=== PATIENT | female | born 1985 | race Caucasian/White ===

== ENCOUNTER 2016-09-06 17:03 | Emergency (ER) | payer MEDICAID ==
[~2016-09-06] VITALS: Ht 144.8 cm; Wt 68.2 kg
[~2016-09-06 17:03] MED LIST: FLUO-191 PO; OLAN10TA20 PO; OMEP20 PO
[2016-09-06 19:00] LABS: BASOPHILS % (AUTO) 0.5 % (0.0-2.0); EOSINOPHILS % (AUTO) 1.5 % (1.0-6.0); HEMATOCRIT 43.4 % (36-46); HEMOGLOBIN 14.5 g/dL (12.0-16.0); LYMPHOCYTES # (AUTO) 3.5 K/uL (1.0-4.8); LYMPHOCYTES % (AUTO) 39.9 % (22.0-44.0); MEAN CORPUSCULAR HEMOGLOBIN 28.2 pg (26.0-34.0); MEAN CORPUSCULAR HGB CONC 33.4 G/dL (31.0-37.0); MEAN CORPUSCULAR VOLUME 84 fL (80-100); MONOCYTES # (AUTO) 0.8 K/uL (0.1-1.0); NEUTROPHILS # (AUTO) 4.3 K/uL (1.8-7.7); NEUTROPHILS % (AUTO) 49.1 % (40.0-70.0); PLATELET COUNT (AUTO) 238 K/uL (150-450); RED BLOOD CELL COUNT(AUTO) 5.14 MIL/uL (4.00-5.20); RED CELL DISTRIBUTION WIDTH 13.3 % (11.5-14.5); WHITE BLOOD COUNT (AUTO) 8.7 K/uL (4.5-11.0)
[2016-09-06 19:02] LABS: ANION GAP 7 mmol/L (8-16); CALCIUM, TOTAL 8.7 mg/dL (8.8-10.5); CARBON DIOXIDE 28 mmol/L (22-29); CHLORIDE 105 mmol/L (98-107); CREATININE 0.83 mg/dL (0.60-1.30); GLOMERULAR FILTR. RATE CALC > 60 mL/min (>60); SODIUM SERUM 140 mmol/L (136-145); UREA NITROGEN, BLOOD 20 mg/dL (7-18)
[2016-09-06 19:09] LABS: ALANINE AMINOTRANSFERASE 34 U/L (12-78); ALBUMIN 3.9 g/dL (3.4-5.0); ASPARTATE AMINOTRANSFERASE 14 U/L (15-37); BILIRUBIN,TOTAL 0.4 mg/dL (0.1-1.0); TOTAL PROTEIN, SERUM 7.4 g/dL (6.4-8.2)
[2016-09-06 21:01] VITALS: BP 122/68
== END 2016-09-06 21:09 | disposition home or self-care (01) ==
LOC: EMS 17:05
DX: F15.10 Other stimulant abuse, uncomplicated (principal); F31.9 Bipolar disorder, unspecified; F20.9 Schizophrenia, unspecified; J45.909 Unspecified asthma, uncomplicated; Z91.040 Latex allergy status; Z88.1 Allergy status to other antibiotic agents; Z88.5 Allergy status to narcotic agent
CPT/HCPCS: 36415; 80053; 85025; 99285; G0480

== ENCOUNTER 2016-10-20 23:49 | Inpatient (IN) | payer MEDICAID ==
[~2016-10-20] VITALS: Ht 144.8 cm; Wt 58.7 kg
[2016-10-21 02:06] VITALS: BP 116/60
[2016-10-21 04:09] LABS: BASOPHILS # (AUTO) 0.12 K/uL (0.00-0.20); BASOPHILS % (AUTO) 1.2 % (0.0-2.0); EOSINOPHILS # (AUTO) 0.09 K/uL (0.00-0.70); HEMATOCRIT 42.8 % (36-46); HEMOGLOBIN 14.1 g/dL (12.0-16.0); LYMPHOCYTES % (AUTO) 29.6 % (22.0-44.0); MEAN CORPUSCULAR HEMOGLOBIN 28.3 pg (26.0-34.0); MEAN CORPUSCULAR HGB CONC 33.1 G/dL (31.0-37.0); MEAN CORPUSCULAR VOLUME 85 fL (80-100); MONOCYTES # (AUTO) 0.6 K/uL (0.1-1.0); MONOCYTES % (AUTO) 6.3 % (2.0-9.0); NEUTROPHILS # (AUTO) 6.3 K/uL (1.8-7.7); PLATELET COUNT (AUTO) 289 K/uL (150-450); RED BLOOD CELL COUNT(AUTO) 5.01 MIL/uL (4.00-5.20); RED CELL DISTRIBUTION WIDTH 14.1 % (11.5-14.5); WHITE BLOOD COUNT (AUTO) 10.1 K/uL (4.5-11.0)
[2016-10-21 04:19] LABS: ANION GAP 10 mmol/L (8-16); CALCIUM, TOTAL 9.2 mg/dL (8.8-10.5); CARBON DIOXIDE 28 mmol/L (22-29); CHLORIDE 103 mmol/L (98-107); CREATININE 0.87 mg/dL (0.60-1.30); GLOMERULAR FILTR. RATE CALC > 60 mL/min (>60); POTASSIUM 3.4 mmol/L (3.5-5.1); SODIUM SERUM 141 mmol/L (136-145); UREA NITROGEN, BLOOD 21 mg/dL (7-18)
[2016-10-21 04:26] LABS: ALANINE AMINOTRANSFERASE 24 U/L (12-78); ALBUMIN 3.9 g/dL (3.4-5.0); ASPARTATE AMINOTRANSFERASE 11 U/L (15-37); BILIRUBIN,TOTAL 0.3 mg/dL (0.1-1.0); TOTAL PROTEIN, SERUM 7.5 g/dL (6.4-8.2)
[2016-10-21] MEDS ORDERED: HALOPERIDOL 5 MG TABLET PO PRN (06:15)
[2016-10-21] MEDS ORDERED: ZOLPIDEM TARTRATE 10 MG TABLET PO PRN (06:15)
[2016-10-21] MEDS ORDERED: LORazepam 2 MG TABLET PO PRN (06:15)
[2016-10-21 07:36] LABS: CHOL/HDL RATIO 4.5 (3.9-5.7)
[2016-10-21 07:47] LABS: APPEARANCE,URINE CLOUDY (CLEAR); GLUCOSE, URINE (UA) NEGATIVE (NEGATIVE); KETONES,URINE NEGATIVE (NEGATIVE); LEUKOCYTE ESTERASE ,URINE MODERATE (NEGATIVE); OCCULT BLOOD,URINE LARGE (NEGATIVE); PH,URINE 6.5 (5.0-8.0); PROTEIN,URINE TRACE (NEGATIVE)
[2016-10-21 07:49] LABS: ADD UA MICROSCOPIC YES
[2016-10-21 07:53] LABS: SQUAMOUS EPITHELIAL CELL,UR Moderate /LPF (None Seen)
[2016-10-21 10:22] VITALS: BP 111/65
[2016-10-21] MEDS ORDERED: IBUPROFEN 400 MG TABLET PO PRN (15:00)
[2016-10-21] MEDS ORDERED: ACETAMINOPHEN 325 MG TABLET PO PRN (15:00)
[2016-10-21] MEDS ORDERED: ALBUTEROL SULFATE HFA 90 MCG/PUFF 8 GM INHALER IH PRN (15:00)
[2016-10-21 17:48] VITALS: BP 126/69
[2016-10-21] MEDS ORDERED: HydrOXYzine PAMOATE 25 MG CAPSULE PO PRN (18:30)
[2016-10-21] MEDS: OLANZapine 10 MG TABLET PO SCH (20:37)
[2016-10-22] MEDS: FLUoxetine HCL 20 MG CAPSULE PO SCH (09:00)
[2016-10-22] MEDS: CIPROFLOXACIN HCL 500 MG TABLET PO SCH ×2 (09:00→16:16)
[2016-10-22] MEDS: OLANZapine 10 MG TABLET PO SCH (20:31)
[2016-10-22 20:55] VITALS: BP 108/66
[2016-10-23 08:00] VITALS: BP 121/72
[2016-10-23] MEDS: CIPROFLOXACIN HCL 500 MG TABLET PO SCH ×2 (09:19→15:51)
[2016-10-23] MEDS: FLUoxetine HCL 20 MG CAPSULE PO SCH (09:19)
[2016-10-23 17:18] VITALS: BP 115/77
[2016-10-23] MEDS ORDERED: DiphenhydrAMINE HCL 50 MG/ML VIAL ONE (18:44)
[2016-10-23] MEDS ORDERED: DiphenhydrAMINE HCL 50 MG/ML VIAL IM ONE (18:45)
[2016-10-23] MEDS: OLANZapine 10 MG TABLET PO SCH (20:12)
[2016-10-23] MEDS ORDERED: BENZTROPINE MESYLATE 1 MG TABLET PO SCH (21:00)
[2016-10-24 02:15] VITALS: BP 117/83
[2016-10-24 08:16] VITALS: BP 104/71
[2016-10-24] MEDS: FLUoxetine HCL 20 MG CAPSULE PO SCH (09:00)
[2016-10-24] MEDS: CIPROFLOXACIN HCL 500 MG TABLET PO SCH ×2 (09:29→16:43)
[2016-10-24 19:06] VITALS: BP 110/73
[2016-10-24] MEDS: OLANZapine 10 MG TABLET PO SCH (20:44)
[2016-10-24] MEDS: BENZTROPINE MESYLATE 1 MG TABLET PO SCH (20:44)
[2016-10-25] MEDS: CIPROFLOXACIN HCL 500 MG TABLET PO SCH ×2 (11:22→16:42)
[2016-10-25] MEDS: BENZTROPINE MESYLATE 1 MG TABLET PO SCH (11:23)
[2016-10-25] MEDS: FLUoxetine HCL 20 MG CAPSULE PO SCH (11:23)
[2016-10-25] MEDS ORDERED: BENZ1TAB10 PO (12:02)
[2016-10-25] MEDS ORDERED: FLUO-191 PO (12:02)
[2016-10-25] MEDS ORDERED: CIPR-278 PO (12:03)
[2016-10-25] MEDS ORDERED: OLAN10TA3 PO (12:04)
== END 2016-10-25 18:45 | disposition home or self-care (01) | DRG 750 ==
LOC: EMS 10-21 03:37 → 3EI 10-21 06:00
PROVIDERS: ADMIT Psychiatry & Neurology Psychiatry; ATTEND Psychiatry & Neurology Psychiatry
PROC: HZ47ZZZ Group Counseling for Substance Abuse Treatment, Motivational Enhancement (ICD-10-PCS; principal; 2016-10-22)
DX: F25.0 Schizoaffective disorder, bipolar type (principal); R45.851 Suicidal ideations; F15.20 Other stimulant dependence, uncomplicated; N39.0 Urinary tract infection, site not specified; J45.909 Unspecified asthma, uncomplicated; G56.00 Carpal tunnel syndrome, unspecified upper limb; K21.9 Gastro-esophageal reflux disease without esophagitis; E78.5 Hyperlipidemia, unspecified; H91.92 Unspecified hearing loss, left ear; R45.87 Impulsiveness; F60.3 Borderline personality disorder; Z81.8 Family history of other mental and behavioral disorders; Z88.6 Allergy status to analgesic agent; Z91.040 Latex allergy status; Z79.899 Other long term (current) drug therapy; Z91.5 Personal history of self-harm; Z88.2 Allergy status to sulfonamides; Z91.14 Patient's other noncompliance with medication regimen
CPT/HCPCS: 87086; 99285; G0480; J1200

== ENCOUNTER 2016-11-13 21:20 | Inpatient (IN) | payer MEDICAID ==
[~2016-11-13] VITALS: Ht 144.8 cm; Wt 60.0 kg
[~2016-11-13 21:20] MED LIST changes: +BENZ1TAB10 PO; +CIPR-278 PO; -OLAN10TA20 PO; +OLAN10TA3 PO; -OMEP20 PO
[2016-11-13 22:00] LABS: BASOPHILS % (AUTO) 0.8 % (0.0-2.0); EOSINOPHILS % (AUTO) 1.3 % (1.0-6.0); HEMATOCRIT 43.4 % (36-46); LYMPHOCYTES # (AUTO) 3.7 K/uL (1.0-4.8); LYMPHOCYTES % (AUTO) 43.6 % (22.0-44.0); MEAN CORPUSCULAR HEMOGLOBIN 27.7 pg (26.0-34.0); MEAN CORPUSCULAR HGB CONC 32.2 G/dL (31.0-37.0); MEAN CORPUSCULAR VOLUME 86 fL (80-100); MONOCYTES # (AUTO) 0.6 K/uL (0.1-1.0); NEUTROPHILS % (AUTO) 47.3 % (40.0-70.0); PLATELET COUNT (AUTO) 263 K/uL (150-450); RED BLOOD CELL COUNT(AUTO) 5.05 MIL/uL (4.00-5.20); RED CELL DISTRIBUTION WIDTH 14.8 % (11.5-14.5); WHITE BLOOD COUNT (AUTO) 8.4 K/uL (4.5-11.0)
[2016-11-13] MEDS ORDERED: LORazepam 2 MG TABLET PO ONE (22:00)
[2016-11-13] MEDS ORDERED: HALOPERIDOL 5 MG TABLET PO ONE (22:00)
[2016-11-13 22:14] LABS: ANION GAP 10 mmol/L (8-16); CALCIUM, TOTAL 8.6 mg/dL (8.8-10.5); CARBON DIOXIDE 26 mmol/L (22-29); CHLORIDE 102 mmol/L (98-107); CREATININE 0.87 mg/dL (0.60-1.30); GLOMERULAR FILTR. RATE CALC > 60 mL/min (>60); POTASSIUM 3.6 mmol/L (3.5-5.1); SODIUM SERUM 138 mmol/L (136-145); UREA NITROGEN, BLOOD 13 mg/dL (7-18)
[2016-11-13 22:20] LABS: ALANINE AMINOTRANSFERASE 27 U/L (12-78); ALBUMIN 4.2 g/dL (3.4-5.0); ASPARTATE AMINOTRANSFERASE 12 U/L (15-37); BILIRUBIN,TOTAL 0.3 mg/dL (0.1-1.0); TOTAL PROTEIN, SERUM 7.7 g/dL (6.4-8.2)
[2016-11-13] MEDS ORDERED: QUEtiapine FUMARATE 100 MG TABLET PO PRN (22:30)
[2016-11-14 01:32] LABS: APPEARANCE,URINE CLOUDY (CLEAR); GLUCOSE, URINE (UA) 100 mg/dL (NEGATIVE); KETONES,URINE NEGATIVE (NEGATIVE); LEUKOCYTE ESTERASE ,URINE SMALL (NEGATIVE); OCCULT BLOOD,URINE NEGATIVE (NEGATIVE); PH,URINE 5.5 (5.0-8.0); PROTEIN,URINE NEGATIVE (NEGATIVE)
[2016-11-14 01:33] LABS: ADD UA MICROSCOPIC YES
[2016-11-14 01:39] LABS: CALCIUM OXALATE CRYSTALS,UR Moderate /LPF (None Seen); RBC,URINE 0-2 /HPF (0-2); SQUAMOUS EPITHELIAL CELL,UR Few /LPF (None Seen)
[2016-11-14 02:52] VITALS: BP 108/58
[2016-11-14 07:15] LABS: CHOL/HDL RATIO 3.8 (3.9-5.7)
[2016-11-14 08:16] VITALS: BP 107/58
[2016-11-14] MEDS: BENZTROPINE MESYLATE 1 MG TABLET PO SCH ×2 (09:04→21:19)
[2016-11-14] MEDS: FLUoxetine HCL 20 MG CAPSULE PO SCH (09:04)
[2016-11-14 17:01] VITALS: BP 105/71
[2016-11-14] MEDS ORDERED: OLANZapine 10 MG TABLET PO SCH (21:00)
[2016-11-14] MEDS: ZOLPIDEM TARTRATE 5 MG TABLET PO PRN (22:02)
[2016-11-15 09:00] VITALS: BP 108/61
[2016-11-15] MEDS: FLUoxetine HCL 20 MG CAPSULE PO SCH (09:22)
[2016-11-15] MEDS: BENZTROPINE MESYLATE 1 MG TABLET PO SCH ×2 (09:22→20:44)
[2016-11-15 16:54] VITALS: BP 117/58
[2016-11-15] MEDS: ACETAMINOPHEN 325 MG TABLET PO PRN (16:56)
[2016-11-15 17:54] VITALS: BP 120/62
[2016-11-15] MEDS ORDERED: GuaiFENesin/D-METHORPHAN [SUGAR-FREE] 200-20MG/10 ML SYRUP UDCUP PO PRN (18:00)
[2016-11-15] MEDS ORDERED: PROMETHAZINE HCL 25 MG TABLET PO PRN (18:00)
[2016-11-15] MEDS ORDERED: OLANZapine 5 MG RAPDIS TABLET PO PRN (18:00)
[2016-11-15] MEDS ORDERED: LOPERAMIDE HCL 2 MG CAPSULE PO PRN (18:00)
[2016-11-15] MEDS ORDERED: MAG HYDROX/AL HYDROX/SIMETH ES 30 ML SUSPENSION UDCUP PO PRN (18:00)
[2016-11-15] MEDS ORDERED: HydrOXYzine PAMOATE 50 MG CAPSULE PO PRN (18:00)
[2016-11-15] MEDS ORDERED: ACETAMINOPHEN 325 MG TABLET PO PRN (18:00)
[2016-11-15] MEDS ORDERED: MAGNESIUM HYDROXIDE SUSPENSION 30 ML UDCUP PO PRN (18:00)
[2016-11-15] MEDS ORDERED: OLANZapine 7.5 MG TABLET PO SCH (21:00)
[2016-11-15] MEDS: ZOLPIDEM TARTRATE 5 MG TABLET PO PRN (21:25)
[2016-11-16 01:15] VITALS: BP 105/63
[2016-11-16] MEDS: ACETAMINOPHEN 325 MG TABLET PO PRN (01:15)
[2016-11-16 09:00] VITALS: BP 100/54
[2016-11-16] MEDS: MULTIVITAMINS WITH MINERALS, THERAPEUTIC TABLET PO SCH (09:35)
[2016-11-16] MEDS: THIAMINE HCL 100 MG TABLET PO SCH ×2 (09:35→16:16)
[2016-11-16] MEDS: FLUoxetine HCL 20 MG CAPSULE PO SCH (09:35)
[2016-11-16] MEDS: BENZTROPINE MESYLATE 1 MG TABLET PO SCH (09:35)
[2016-11-16] MEDS: FOLIC ACID 1 MG TABLET PO SCH (09:35)
[2016-11-16 16:30] VITALS: BP 119/78
[2016-11-16] MEDS: OLANZapine 10 MG TABLET PO SCH (20:35)
[2016-11-16] MEDS: ZOLPIDEM TARTRATE 5 MG TABLET PO PRN (20:41)
[2016-11-17] MEDS: MULTIVITAMINS WITH MINERALS, THERAPEUTIC TABLET PO SCH (08:42)
[2016-11-17] MEDS: FLUoxetine HCL 20 MG CAPSULE PO SCH (08:42)
[2016-11-17] MEDS: FOLIC ACID 1 MG TABLET PO SCH (08:42)
[2016-11-17] MEDS: THIAMINE HCL 100 MG TABLET PO SCH ×2 (08:44→16:41)
[2016-11-17] MEDS: LORazepam 2 MG TABLET PO PRN (16:48)
[2016-11-17] MEDS: OLANZapine 10 MG TABLET PO SCH (21:11)
[2016-11-17 22:37] VITALS: BP 123/67
[2016-11-18] MEDS: LORazepam 2 MG TABLET PO PRN (03:55)
[2016-11-18 08:00] VITALS: BP 102/65
[2016-11-18] MEDS: THIAMINE HCL 100 MG TABLET PO SCH ×2 (09:13→16:12)
[2016-11-18] MEDS: MULTIVITAMINS WITH MINERALS, THERAPEUTIC TABLET PO SCH (09:13)
[2016-11-18] MEDS: FOLIC ACID 1 MG TABLET PO SCH (09:13)
[2016-11-18] MEDS: FLUoxetine HCL 20 MG CAPSULE PO SCH (09:13)
[2016-11-18] MEDS ORDERED: FLUO-191 PO (13:49)
[2016-11-18] MEDS ORDERED: OLAN10TA20 PO (13:49)
== END 2016-11-18 18:00 | disposition home or self-care (01) | DRG 751 ==
LOC: EMS 21:28 → 3EI 23:04
PROVIDERS: ADMIT Psychiatry & Neurology Psychiatry; ATTEND Psychiatry & Neurology Psychiatry
DX: F33.3 Major depressive disorder, recurrent, severe with psychotic symptoms (principal); Z91.14 Patient's other noncompliance with medication regimen; R45.851 Suicidal ideations; K21.9 Gastro-esophageal reflux disease without esophagitis; J45.909 Unspecified asthma, uncomplicated; E78.5 Hyperlipidemia, unspecified; G56.00 Carpal tunnel syndrome, unspecified upper limb
CPT/HCPCS: 87081; 99285; G0480

== ENCOUNTER 2016-11-21 23:55 | Emergency (ER) | payer MEDICAID ==
[~2016-11-21] VITALS: Ht 144.8 cm; Wt 60.0 kg
[~2016-11-21 23:55] MED LIST changes: -BENZ1TAB10 PO; -CIPR-278 PO; +OLAN10TA20 PO
[2016-11-22 00:02] VITALS: BP 122/85
== END 2016-11-22 01:15 | disposition left against medical advice (07) ==
LOC: EMS 23:55
DX: Z53.21 Procedure and treatment not carried out due to patient leaving prior to being seen by health care provider (principal)

== ENCOUNTER 2016-12-16 18:08 | Inpatient (IN) | payer MEDICAID ==
[~2016-12-16] VITALS: Ht 144.8 cm; Wt 60.8 kg
[~2016-12-16 18:08] MED LIST changes: -OLAN10TA3 PO
[2016-12-16 18:57] LABS: BASOPHILS % (AUTO) 0.6 % (0.0-2.0); EOSINOPHILS % (AUTO) 0.8 % (1.0-6.0); HEMATOCRIT 45.2 % (36-46); HEMOGLOBIN 15.1 g/dL (12.0-16.0); LYMPHOCYTES % (AUTO) 30.6 % (22.0-44.0); MEAN CORPUSCULAR HEMOGLOBIN 29.1 pg (26.0-34.0); MEAN CORPUSCULAR HGB CONC 33.5 G/dL (31.0-37.0); MEAN CORPUSCULAR VOLUME 87 fL (80-100); MONOCYTES # (AUTO) 0.8 K/uL (0.1-1.0); MONOCYTES % (AUTO) 7.6 % (2.0-9.0); NEUTROPHILS % (AUTO) 60.4 % (40.0-70.0); PLATELET COUNT (AUTO) 285 K/uL (150-450); RED CELL DISTRIBUTION WIDTH 14.1 % (11.5-14.5)
[2016-12-16 19:05] LABS: ANION GAP 15 mmol/L (8-16); CARBON DIOXIDE 23 mmol/L (22-29); CHLORIDE 104 mmol/L (98-107); GLOMERULAR FILTR. RATE CALC > 60 mL/min (>60); POTASSIUM 3.4 mmol/L (3.5-5.1); SODIUM SERUM 142 mmol/L (136-145); UREA NITROGEN, BLOOD 15 mg/dL (7-18)
[2016-12-16 19:14] LABS: ALANINE AMINOTRANSFERASE 25 U/L (12-78); ALBUMIN 4.7 g/dL (3.4-5.0); ASPARTATE AMINOTRANSFERASE 23 U/L (15-37); BILIRUBIN,TOTAL 0.8 mg/dL (0.1-1.0); TOTAL PROTEIN, SERUM 8.4 g/dL (6.4-8.2)
[2016-12-16] MEDS ORDERED: LORazepam 2 MG TABLET PO PRN (20:30)
[2016-12-16] MEDS ORDERED: ZOLPIDEM TARTRATE 10 MG TABLET PO PRN (20:30)
[2016-12-16] MEDS ORDERED: QUEtiapine FUMARATE 100 MG TABLET PO PRN (20:30)
[2016-12-16] MEDS ORDERED: 0.9% SODIUM CHLORIDE 10 ML SYRINGE IVP PRN (21:15)
[2016-12-16] MEDS ORDERED: ACETAMINOPHEN 325 MG TABLET PO PRN (21:15)
[2016-12-16 21:30] VITALS: BP 132/84
[2016-12-16] MEDS ORDERED: ChlorproMAZINE HCL 50 MG TABLET PO PRN (21:45)
[2016-12-16] MEDS: OLANZapine 5 MG TABLET PO SCH (22:01)
[2016-12-16] MEDS: BENZTROPINE MESYLATE 1 MG TABLET PO SCH (22:01)
[2016-12-17 07:32] LABS: CHOL/HDL RATIO 3.2 (3.9-5.7)
[2016-12-17 16:47] VITALS: BP 108/62
[2016-12-17] MEDS: OLANZapine 5 MG TABLET PO SCH (20:52)
[2016-12-17] MEDS: BENZTROPINE MESYLATE 1 MG TABLET PO SCH (20:52)
[2016-12-17] MEDS ORDERED: OLANZapine 5 MG TABLET PO SCH (21:00)
[2016-12-17] MEDS ORDERED: BENZTROPINE MESYLATE 1 MG TABLET PO SCH (21:00)
[2016-12-17] MEDS ORDERED: ACETAMINOPHEN 325 MG TABLET PO PRN (21:45)
[2016-12-17] MEDS ORDERED: IBUPROFEN 400 MG TABLET PO PRN (21:45)
[2016-12-18 09:29] VITALS: BP 126/72
[2016-12-18] MEDS: OLANZapine 10 MG TABLET PO SCH (20:42)
[2016-12-18] MEDS: BENZTROPINE MESYLATE 1 MG TABLET PO SCH (20:42)
[2016-12-19 08:00] VITALS: BP 119/73
[2016-12-19] MEDS ORDERED: GuaiFENesin/D-METHORPHAN [SUGAR-FREE] 200-20MG/10 ML SYRUP UDCUP PO PRN (14:30)
[2016-12-19] MEDS ORDERED: OLANZapine 5 MG RAPDIS TABLET PO PRN (14:30)
[2016-12-19] MEDS ORDERED: HydrOXYzine PAMOATE 50 MG CAPSULE PO PRN (14:30)
[2016-12-19] MEDS ORDERED: MAG HYDROX/AL HYDROX/SIMETH ES 30 ML SUSPENSION UDCUP PO PRN (14:30)
[2016-12-19] MEDS ORDERED: PROMETHAZINE HCL 25 MG TABLET PO PRN (14:30)
[2016-12-19] MEDS ORDERED: LOPERAMIDE HCL 2 MG CAPSULE PO PRN (14:30)
[2016-12-19] MEDS ORDERED: MAGNESIUM HYDROXIDE SUSPENSION 30 ML UDCUP PO PRN (14:30)
[2016-12-19] MEDS ORDERED: ACETAMINOPHEN 325 MG TABLET PO PRN (14:30)
[2016-12-19] MEDS: THIAMINE HCL 100 MG TABLET PO SCH (16:15)
[2016-12-19] MEDS ORDERED: BENZ1TAB10 PO (17:05)
[2016-12-19] MEDS ORDERED: NALT50 PO (17:05)
[2016-12-19] MEDS ORDERED: OLAN10TA20 PO (17:05)
[2016-12-19] MEDS ORDERED: DiphenhydrAMINE HCL 50 MG/ML VIAL ONE (17:52)
[2016-12-19] MEDS ORDERED: BENZTROPINE MESYLATE 2 MG TABLET PO ONE (18:00)
[2016-12-19] MEDS ORDERED: DiphenhydrAMINE HCL 50 MG/ML VIAL IM ONE (18:00)
[2016-12-19 19:00] VITALS: BP 118/75
[2016-12-19] MEDS: OLANZapine 10 MG TABLET PO SCH (20:21)
[2016-12-19] MEDS: BENZTROPINE MESYLATE 1 MG TABLET PO SCH (20:21)
[2016-12-20 08:44] VITALS: BP 100/60
[2016-12-20] MEDS: THIAMINE HCL 100 MG TABLET PO SCH (08:53)
[2016-12-20] MEDS ORDERED: BENZTROPINE MESYLATE 2 MG TABLET PO SCH (09:00)
[2016-12-20] MEDS ORDERED: FOLIC ACID 1 MG TABLET PO SCH (09:00)
[2016-12-20] MEDS ORDERED: MULTIVITAMINS WITH MINERALS, THERAPEUTIC TABLET PO SCH (09:00)
[2016-12-20] MEDS ORDERED: NALTREXONE HCL 50 MG TABLET PO SCH (09:00)
[2016-12-20] MEDS ORDERED: BENZ2TAB10 PO (13:07)
== END 2016-12-20 14:00 | disposition home or self-care (01) | DRG 753 ==
LOC: EMS 18:10 → 3EI 20:00
PROVIDERS: ADMIT Psychiatry & Neurology Psychiatry; ATTEND Psychiatry & Neurology Psychiatry
DX: F31.9 Bipolar disorder, unspecified (principal); R45.851 Suicidal ideations; Z91.19 Patient's noncompliance with other medical treatment and regimen; F15.10 Other stimulant abuse, uncomplicated; F25.9 Schizoaffective disorder, unspecified; G56.00 Carpal tunnel syndrome, unspecified upper limb; E87.6 Hypokalemia; E78.5 Hyperlipidemia, unspecified; H91.92 Unspecified hearing loss, left ear; M54.30 Sciatica, unspecified side; J45.909 Unspecified asthma, uncomplicated; K21.9 Gastro-esophageal reflux disease without esophagitis; Z88.2 Allergy status to sulfonamides; Z88.6 Allergy status to analgesic agent; Z91.040 Latex allergy status; Z79.899 Other long term (current) drug therapy
CPT/HCPCS: 84443; 87081; 99285; G0480; J1200

== ENCOUNTER 2017-02-02 20:09 | Emergency (ER) | payer MEDICAID ==
[~2017-02-02] VITALS: Ht 144.8 cm; Wt 62.5 kg
[~2017-02-02 20:09] MED LIST changes: +BENZ0.5T6 PO; +BENZ2TAB10 PO; +HALO10 PO; +HALO50VI4 IM; +NALT50 PO; -OLAN10TA20 PO; +PALI6 PO
[2017-02-02] MEDS ORDERED: DiphenhydrAMINE HCL 25 MG CAPSULE PO ONE (21:15)
[2017-02-02] MEDS ORDERED: BENZTROPINE MESYLATE 2 MG TABLET PO ONE (21:15)
[2017-02-02 21:16] LABS: APPEARANCE,URINE CLOUDY (CLEAR); GLUCOSE, URINE (UA) NEGATIVE (NEGATIVE); KETONES,URINE NEGATIVE (NEGATIVE); LEUKOCYTE ESTERASE ,URINE LARGE (NEGATIVE); OCCULT BLOOD,URINE NEGATIVE (NEGATIVE); PROTEIN,URINE NEGATIVE (NEGATIVE)
[2017-02-02 21:26] LABS: BASOPHILS # (AUTO) 0.07 K/uL (0.00-0.20); EOSINOPHILS # (AUTO) 0.09 K/uL (0.00-0.70); EOSINOPHILS % (AUTO) 1.24 % (1.0-6.0); HEMATOCRIT 40.6 % (36-46); HEMOGLOBIN 13.4 g/dL (12.0-16.0); LYMPHOCYTES # (AUTO) 3.1 K/uL (1.0-4.8); LYMPHOCYTES % (AUTO) 40.9 % (22.0-44.0); MEAN CORPUSCULAR HEMOGLOBIN 28.3 pg (26.0-34.0); MEAN CORPUSCULAR HGB CONC 33.1 G/dL (31.0-37.0); MEAN CORPUSCULAR VOLUME 86 fL (80-100); MONOCYTES # (AUTO) 0.6 K/uL (0.1-1.0); MONOCYTES % (AUTO) 7.4 % (2.0-9.0); NEUTROPHILS # (AUTO) 3.8 K/uL (1.8-7.7); NEUTROPHILS % (AUTO) 49.5 % (40.0-70.0); PLATELET COUNT (AUTO) 214 K/uL (150-450); RED BLOOD CELL COUNT(AUTO) 4.74 MIL/uL (4.00-5.20); RED CELL DISTRIBUTION WIDTH 13.5 % (11.5-14.5); WHITE BLOOD COUNT (AUTO) 7.7 K/uL (4.5-11.0)
[2017-02-02 21:34] LABS: ANION GAP 9 mmol/L (8-16); CALCIUM, TOTAL 9.3 mg/dL (8.8-10.5); CARBON DIOXIDE 25 mmol/L (22-29); CHLORIDE 105 mmol/L (98-107); CREATININE 1.04 mg/dL (0.60-1.30); GLOMERULAR FILTR. RATE CALC > 60 mL/min (>60); SODIUM SERUM 139 mmol/L (136-145); UREA NITROGEN, BLOOD 14 mg/dL (7-18)
[2017-02-02 21:35] LABS: RBC,URINE None Seen /HPF (0-2); SQUAMOUS EPITHELIAL CELL,UR Moderate /LPF (None Seen)
[2017-02-02 21:42] LABS: ALANINE AMINOTRANSFERASE 28 U/L (12-78); ALBUMIN 3.8 g/dL (3.4-5.0); ASPARTATE AMINOTRANSFERASE 10 U/L (15-37); BILIRUBIN,TOTAL 0.4 mg/dL (0.1-1.0); TOTAL PROTEIN, SERUM 7.1 g/dL (6.4-8.2)
[2017-02-02] MEDS ORDERED: CEPHALEXIN MONOHYDRATE 500 MG CAPSULE PO ONE (22:45)
[2017-02-02 22:50] VITALS: BP 96/59
== END 2017-02-02 23:02 | disposition home or self-care (01) ==
LOC: EMS 20:10
DX: G25.9 Extrapyramidal and movement disorder, unspecified (principal); F20.9 Schizophrenia, unspecified; F32.9 Major depressive disorder, single episode, unspecified; J45.909 Unspecified asthma, uncomplicated; R82.99 Other abnormal findings in urine; G25.3 Myoclonus; M54.30 Sciatica, unspecified side; Z91.040 Latex allergy status; Z88.2 Allergy status to sulfonamides; Z88.6 Allergy status to analgesic agent
CPT/HCPCS: 87086; 99284

== ENCOUNTER 2017-02-03 03:36 | Inpatient (IN) | payer MEDICAID ==
[~2017-02-03] VITALS: Ht 144.8 cm; Wt 60.3 kg
[~2017-02-03 03:36] MED LIST changes: -BENZ2TAB10 PO; -PALI6 PO
[2017-02-03] MEDS ORDERED: ZOLPIDEM TARTRATE 10 MG TABLET PO PRN (05:15)
[2017-02-03] MEDS ORDERED: HALOPERIDOL 5 MG TABLET PO PRN (05:15)
[2017-02-03] MEDS ORDERED: MAGNESIUM HYDROXIDE SUSPENSION 30 ML UDCUP PO PRN (12:00)
[2017-02-03] MEDS ORDERED: HydrOXYzine PAMOATE 50 MG CAPSULE PO PRN (12:00)
[2017-02-03] MEDS ORDERED: PROMETHAZINE HCL 25 MG TABLET PO PRN (12:00)
[2017-02-03] MEDS ORDERED: LOPERAMIDE HCL 2 MG CAPSULE PO PRN (12:00)
[2017-02-03] MEDS ORDERED: ACETAMINOPHEN 325 MG TABLET PO PRN (12:00)
[2017-02-03] MEDS: BENZTROPINE MESYLATE 2 MG TABLET PO SCH ×2 (12:59→16:39)
[2017-02-03] MEDS: THIAMINE HCL 100 MG TABLET PO SCH (16:39)
[2017-02-03 16:42] VITALS: BP 114/68
[2017-02-03] MEDS: HALOPERIDOL 10 MG TABLET PO SCH (21:27)
[2017-02-04 06:42] VITALS: BP 106/60
[2017-02-04 09:41] VITALS: BP 104/61
[2017-02-04] MEDS: FOLIC ACID 1 MG TABLET PO SCH (09:41)
[2017-02-04] MEDS: THIAMINE HCL 100 MG TABLET PO SCH ×2 (09:41→16:09)
[2017-02-04] MEDS: FLUoxetine HCL 20 MG CAPSULE PO SCH (09:41)
[2017-02-04] MEDS: MULTIVITAMINS WITH MINERALS, THERAPEUTIC TABLET PO SCH (09:41)
[2017-02-04] MEDS: NALTREXONE HCL 50 MG TABLET PO SCH (09:41)
[2017-02-04] MEDS: BENZTROPINE MESYLATE 2 MG TABLET PO SCH ×3 (09:41→16:09)
[2017-02-04] MEDS: MAG HYDROX/AL HYDROX/SIMETH ES 30 ML SUSPENSION UDCUP PO PRN (12:58)
[2017-02-04 16:00] VITALS: BP 100/61
[2017-02-04] MEDS: HALOPERIDOL 10 MG TABLET PO SCH (20:18)
[2017-02-05] VITALS: BP 100/62
[2017-02-05 08:00] LABS: BASOPHILS # (AUTO) 0.02 K/uL (0.00-0.20); BASOPHILS % (AUTO) 0.3 % (0.0-2.0); EOSINOPHILS # (AUTO) 0.11 K/uL (0.00-0.70); EOSINOPHILS % (AUTO) 1.44 % (1.0-6.0); HEMATOCRIT 40.1 % (36-46); HEMOGLOBIN 13.5 g/dL (12.0-16.0); LYMPHOCYTES # (AUTO) 3.4 K/uL (1.0-4.8); LYMPHOCYTES % (AUTO) 45.3 % (22.0-44.0); MEAN CORPUSCULAR HEMOGLOBIN 28.9 pg (26.0-34.0); MEAN CORPUSCULAR HGB CONC 33.6 G/dL (31.0-37.0); MEAN CORPUSCULAR VOLUME 86 fL (80-100); MONOCYTES # (AUTO) 0.6 K/uL (0.1-1.0); MONOCYTES % (AUTO) 8.3 % (2.0-9.0); NEUTROPHILS # (AUTO) 3.3 K/uL (1.8-7.7); NEUTROPHILS % (AUTO) 44.6 % (40.0-70.0); PLATELET COUNT (AUTO) 202 K/uL (150-450); RED BLOOD CELL COUNT(AUTO) 4.65 MIL/uL (4.00-5.20); RED CELL DISTRIBUTION WIDTH 13.6 % (11.5-14.5); WHITE BLOOD COUNT (AUTO) 7.5 K/uL (4.5-11.0)
[2017-02-05 08:24] LABS: HEMOGLOBIN A1C 5.4 % (4.5-6.2)
[2017-02-05 08:29] LABS: ALANINE AMINOTRANSFERASE 22 U/L (12-78); ALBUMIN 3.6 g/dL (3.4-5.0); ANION GAP 11 mmol/L (8-16); ASPARTATE AMINOTRANSFERASE 9 U/L (15-37); BILIRUBIN,TOTAL 0.3 mg/dL (0.1-1.0); CALCIUM, TOTAL 9.1 mg/dL (8.8-10.5); CARBON DIOXIDE 25 mmol/L (22-29); CHLORIDE 106 mmol/L (98-107); CHOL/HDL RATIO 5.6 (3.9-5.7); CREATININE 1.06 mg/dL (0.60-1.30); GLOMERULAR FILTR. RATE CALC > 60 mL/min (>60); POTASSIUM 3.4 mmol/L (3.5-5.1); SODIUM SERUM 142 mmol/L (136-145); THYROID STIMULATING HORMONE 1.32 uIU/mL (0.36-3.74); TOTAL PROTEIN, SERUM 6.8 g/dL (6.4-8.2); UREA NITROGEN, BLOOD 15 mg/dL (7-18)
[2017-02-05] MEDS: NALTREXONE HCL 50 MG TABLET PO SCH (09:25)
[2017-02-05] MEDS: THIAMINE HCL 100 MG TABLET PO SCH ×2 (09:25→16:31)
[2017-02-05] MEDS: MULTIVITAMINS WITH MINERALS, THERAPEUTIC TABLET PO SCH (09:25)
[2017-02-05] MEDS: FOLIC ACID 1 MG TABLET PO SCH (09:25)
[2017-02-05] MEDS: FLUoxetine HCL 20 MG CAPSULE PO SCH (09:25)
[2017-02-05] MEDS: BENZTROPINE MESYLATE 2 MG TABLET PO SCH ×3 (09:25→16:31)
[2017-02-05 10:17] VITALS: BP 98/64
[2017-02-05 16:15] VITALS: BP 116/63
[2017-02-05] MEDS ORDERED: POTASSIUM CHLORIDE 20 MEQ ER TABLET PO ONE (17:30)
[2017-02-05] MEDS: HALOPERIDOL 5 MG TABLET PO SCH (20:39)
[2017-02-06 02:09] VITALS: BP 110/61
[2017-02-06 08:26] VITALS: BP 104/60
[2017-02-06] MEDS: THIAMINE HCL 100 MG TABLET PO SCH ×2 (08:42→16:19)
[2017-02-06] MEDS: NALTREXONE HCL 50 MG TABLET PO SCH (08:42)
[2017-02-06] MEDS: FOLIC ACID 1 MG TABLET PO SCH (08:42)
[2017-02-06] MEDS: MULTIVITAMINS WITH MINERALS, THERAPEUTIC TABLET PO SCH (08:42)
[2017-02-06] MEDS: FLUoxetine HCL 20 MG CAPSULE PO SCH (08:42)
[2017-02-06] MEDS: BENZTROPINE MESYLATE 1 MG TABLET PO SCH ×2 (08:42→16:19)
[2017-02-06 16:17] VITALS: BP 108/62
[2017-02-06] MEDS: HALOPERIDOL 5 MG TABLET PO SCH (21:18)
[2017-02-07 08:15] VITALS: BP 110/66
[2017-02-07] MEDS: FLUoxetine HCL 20 MG CAPSULE PO SCH (08:30)
[2017-02-07] MEDS: FOLIC ACID 1 MG TABLET PO SCH (08:31)
[2017-02-07] MEDS: NALTREXONE HCL 50 MG TABLET PO SCH (08:31)
[2017-02-07] MEDS: BENZTROPINE MESYLATE 1 MG TABLET PO SCH ×2 (08:31→16:05)
[2017-02-07] MEDS: THIAMINE HCL 100 MG TABLET PO SCH ×2 (08:31→16:05)
[2017-02-07] MEDS: MULTIVITAMINS WITH MINERALS, THERAPEUTIC TABLET PO SCH (08:31)
[2017-02-07 16:18] VITALS: BP 100/62
[2017-02-07] MEDS: GuaiFENesin/D-METHORPHAN [SUGAR-FREE] 200-20MG/10 ML SYRUP UDCUP PO PRN (17:46)
[2017-02-07] MEDS: HALOPERIDOL 5 MG TABLET PO SCH (20:23)
[2017-02-08 06:10] VITALS: BP 114/63
[2017-02-08 08:50] VITALS: BP 100/58
[2017-02-08] MEDS: MULTIVITAMINS WITH MINERALS, THERAPEUTIC TABLET PO SCH (08:54)
[2017-02-08] MEDS: BENZTROPINE MESYLATE 1 MG TABLET PO SCH ×2 (08:54→16:07)
[2017-02-08] MEDS: FLUoxetine HCL 20 MG CAPSULE PO SCH (08:54)
[2017-02-08] MEDS: NALTREXONE HCL 50 MG TABLET PO SCH (08:54)
[2017-02-08] MEDS: FOLIC ACID 1 MG TABLET PO SCH (08:54)
[2017-02-08] MEDS: THIAMINE HCL 100 MG TABLET PO SCH ×2 (08:55→16:07)
[2017-02-08 16:13] VITALS: BP 128/62
[2017-02-08] MEDS: HALOPERIDOL 5 MG TABLET PO SCH (20:07)
[2017-02-08] MEDS: LORazepam 2 MG TABLET PO PRN (21:15)
[2017-02-09 04:13] VITALS: BP 127/64
[2017-02-09] MEDS: FLUoxetine HCL 20 MG CAPSULE PO SCH (08:30)
[2017-02-09] MEDS: MULTIVITAMINS WITH MINERALS, THERAPEUTIC TABLET PO SCH (08:30)
[2017-02-09] MEDS: BENZTROPINE MESYLATE 1 MG TABLET PO SCH ×2 (08:30→16:21)
[2017-02-09] MEDS: THIAMINE HCL 100 MG TABLET PO SCH ×2 (08:30→16:21)
[2017-02-09] MEDS: NALTREXONE HCL 50 MG TABLET PO SCH (08:30)
[2017-02-09] MEDS: FOLIC ACID 1 MG TABLET PO SCH (08:30)
[2017-02-09 09:12] VITALS: BP 106/59
[2017-02-09 16:36] VITALS: BP 100/62
[2017-02-09] MEDS: LORazepam 2 MG TABLET PO PRN (18:34)
[2017-02-09] MEDS: HALOPERIDOL 5 MG TABLET PO SCH (20:44)
[2017-02-10] MEDS: BENZTROPINE MESYLATE 1 MG TABLET PO SCH ×2 (08:40→16:22)
[2017-02-10] MEDS: MULTIVITAMINS WITH MINERALS, THERAPEUTIC TABLET PO SCH (08:40)
[2017-02-10] MEDS: FLUoxetine HCL 20 MG CAPSULE PO SCH (08:40)
[2017-02-10] MEDS: NALTREXONE HCL 50 MG TABLET PO SCH (08:40)
[2017-02-10] MEDS: THIAMINE HCL 100 MG TABLET PO SCH ×2 (08:40→16:22)
[2017-02-10] MEDS: FOLIC ACID 1 MG TABLET PO SCH (08:40)
[2017-02-10 09:01] VITALS: BP 102/56
[2017-02-10 16:16] VITALS: BP 109/69
[2017-02-10] MEDS: HALOPERIDOL 5 MG TABLET PO SCH (20:13)
[2017-02-11 04:32] VITALS: BP 112/63
[2017-02-11] MEDS: FOLIC ACID 1 MG TABLET PO SCH (08:11)
[2017-02-11] MEDS: FLUoxetine HCL 20 MG CAPSULE PO SCH (08:11)
[2017-02-11] MEDS: BENZTROPINE MESYLATE 1 MG TABLET PO SCH ×2 (08:11→16:26)
[2017-02-11] MEDS: THIAMINE HCL 100 MG TABLET PO SCH ×2 (08:11→16:26)
[2017-02-11] MEDS: NALTREXONE HCL 50 MG TABLET PO SCH (08:11)
[2017-02-11] MEDS: MULTIVITAMINS WITH MINERALS, THERAPEUTIC TABLET PO SCH (08:11)
[2017-02-11 08:42] VITALS: BP 106/64
[2017-02-11] MEDS: GuaiFENesin/D-METHORPHAN [SUGAR-FREE] 200-20MG/10 ML SYRUP UDCUP PO PRN (12:14)
[2017-02-11] MEDS: MAG HYDROX/AL HYDROX/SIMETH ES 30 ML SUSPENSION UDCUP PO PRN (14:36)
[2017-02-11 16:00] VITALS: BP 108/63
[2017-02-11] MEDS: HALOPERIDOL 5 MG TABLET PO SCH (21:08)
[2017-02-12 02:35] VITALS: BP 101/63
[2017-02-12] MEDS: BENZTROPINE MESYLATE 1 MG TABLET PO SCH ×2 (08:10→16:26)
[2017-02-12] MEDS: FLUoxetine HCL 20 MG CAPSULE PO SCH (08:10)
[2017-02-12] MEDS: NALTREXONE HCL 50 MG TABLET PO SCH (08:10)
[2017-02-12] MEDS: FOLIC ACID 1 MG TABLET PO SCH (08:10)
[2017-02-12] MEDS: MULTIVITAMINS WITH MINERALS, THERAPEUTIC TABLET PO SCH (08:10)
[2017-02-12] MEDS: THIAMINE HCL 100 MG TABLET PO SCH ×2 (08:10→16:27)
[2017-02-12] MEDS: GuaiFENesin/D-METHORPHAN [SUGAR-FREE] 200-20MG/10 ML SYRUP UDCUP PO PRN ×2 (08:31→18:18)
[2017-02-12 08:49] VITALS: BP 108/66
[2017-02-12 16:00] VITALS: BP 113/71
[2017-02-12] MEDS: MAG HYDROX/AL HYDROX/SIMETH ES 30 ML SUSPENSION UDCUP PO PRN (18:18)
[2017-02-12] MEDS: LORazepam 2 MG TABLET PO PRN (20:18)
[2017-02-12] MEDS: HALOPERIDOL 5 MG TABLET PO SCH (20:18)
[2017-02-13 05:15] VITALS: BP 110/71
[2017-02-13 08:13] VITALS: BP 111/71
[2017-02-13] MEDS: FOLIC ACID 1 MG TABLET PO SCH (09:10)
[2017-02-13] MEDS: MULTIVITAMINS WITH MINERALS, THERAPEUTIC TABLET PO SCH (09:10)
[2017-02-13] MEDS: BENZTROPINE MESYLATE 1 MG TABLET PO SCH ×2 (09:11→16:20)
[2017-02-13] MEDS: THIAMINE HCL 100 MG TABLET PO SCH (09:11)
[2017-02-13] MEDS: NALTREXONE HCL 50 MG TABLET PO SCH (09:11)
[2017-02-13] MEDS: FLUoxetine HCL 20 MG CAPSULE PO SCH (09:11)
[2017-02-13] MEDS ORDERED: FLUO-191 PO (14:00)
[2017-02-13] MEDS ORDERED: BENZ1TAB10 PO (14:00)
[2017-02-13] MEDS ORDERED: NALT50 PO (14:00)
[2017-02-13] MEDS ORDERED: HALO50AM2 IM (14:03)
[2017-02-13] MEDS ORDERED: QUEtiapine FUMARATE 100 MG TABLET PO ONE (19:00)
[2017-02-13] MEDS ORDERED: QUEtiapine FUMARATE 100 MG TABLET PO SCH (21:00)
== END 2017-02-13 19:20 | disposition home or self-care (01) | DRG 750 ==
LOC: EMS 03:37 → B2S 05:00 → B3A 02-06 20:03
PROVIDERS: ADMIT Psychiatry & Neurology Psychiatry; ATTEND Psychiatry & Neurology Psychiatry
DX: F25.0 Schizoaffective disorder, bipolar type (principal); R45.851 Suicidal ideations; G25.9 Extrapyramidal and movement disorder, unspecified; R10.13 Epigastric pain; F15.90 Other stimulant use, unspecified, uncomplicated; K21.9 Gastro-esophageal reflux disease without esophagitis; M54.9 Dorsalgia, unspecified; M54.30 Sciatica, unspecified side; J44.9 Chronic obstructive pulmonary disease, unspecified; Z59.0 Homelessness; Z88.2 Allergy status to sulfonamides; Z88.5 Allergy status to narcotic agent; Z91.040 Latex allergy status; Z91.14 Patient's other noncompliance with medication regimen; Z87.891 Personal history of nicotine dependence; Z79.899 Other long term (current) drug therapy
CPT/HCPCS: 83036; 84132; 84439; 84443; 87081; 99285

== ENCOUNTER 2017-03-20 17:36 | Inpatient (IN) | payer MEDICAID, SELFPAY ==
[~2017-03-20] VITALS: Ht 144.8 cm; Wt 61.3 kg
[~2017-03-20 17:36] MED LIST changes: -BENZ0.5T6 PO; +BENZ1TAB10 PO; -HALO10 PO; +HALO50AM2 IM; -HALO50VI4 IM; -NALT50 PO; +NALT50TA6 PO
[2017-03-20 18:04] LABS: BASOPHILS % (AUTO) 0.4 % (0.0-2.0); EOSINOPHILS % (AUTO) 1.1 % (1.0-6.0); HEMATOCRIT 40.9 % (36-46); HEMOGLOBIN 14.1 g/dL (12.0-16.0); LYMPHOCYTES # (AUTO) 2.2 K/uL (1.0-4.8); LYMPHOCYTES % (AUTO) 36.5 % (22.0-44.0); MEAN CORPUSCULAR HEMOGLOBIN 29.7 pg (26.0-34.0); MEAN CORPUSCULAR HGB CONC 34.5 G/dL (31.0-37.0); MEAN CORPUSCULAR VOLUME 86 fL (80-100); MONOCYTES # (AUTO) 0.6 K/uL (0.1-1.0); MONOCYTES % (AUTO) 10.1 % (2.0-9.0); NEUTROPHILS # (AUTO) 3.1 K/uL (1.8-7.7); NEUTROPHILS % (AUTO) 51.9 % (40.0-70.0); PLATELET COUNT (AUTO) 243 K/uL (150-450); RED BLOOD CELL COUNT(AUTO) 4.74 MIL/uL (4.00-5.20); RED CELL DISTRIBUTION WIDTH 13.5 % (11.5-14.5)
[2017-03-20 18:23] LABS: ANION GAP 11 mmol/L (8-16); CARBON DIOXIDE 24 mmol/L (22-29); CHLORIDE 104 mmol/L (98-107); CREATININE 0.87 mg/dL (0.60-1.30); GLOMERULAR FILTR. RATE CALC > 60 mL/min (>60); POTASSIUM 3.7 mmol/L (3.5-5.1); SODIUM SERUM 139 mmol/L (136-145); UREA NITROGEN, BLOOD 14 mg/dL (7-18)
[2017-03-20 18:30] LABS: ALANINE AMINOTRANSFERASE 22 U/L (12-78); ALBUMIN 4.2 g/dL (3.4-5.0); ASPARTATE AMINOTRANSFERASE 13 U/L (15-37); BILIRUBIN,TOTAL 0.5 mg/dL (0.1-1.0)
[2017-03-20] MEDS ORDERED: HALOPERIDOL 5 MG TABLET PO ONE (20:15)
[2017-03-20] MEDS ORDERED: LORazepam 2 MG TABLET PO ONE (20:15)
[2017-03-20] MEDS ORDERED: HALOPERIDOL 5 MG TABLET PO PRN (20:45)
[2017-03-20] MEDS: ZOLPIDEM TARTRATE 10 MG TABLET PO PRN (21:28)
[2017-03-20 21:40] VITALS: BP 110/79
[2017-03-20] MEDS ORDERED: -PHARMACY VACCINE NOTE- MISC ONE ×2 (22:00)
[2017-03-20] MEDS ORDERED: INFLUENZA VIRUS VACCINE QVS 2017-18 (3YR+)/PF 60 MCG/0.5 ML SYRINGE IM ONE (22:00)
[2017-03-20 22:13] LABS: APPEARANCE,URINE CLOUDY (CLEAR); GLUCOSE, URINE (UA) NEGATIVE (NEGATIVE); KETONES,URINE NEGATIVE (NEGATIVE); LEUKOCYTE ESTERASE ,URINE MODERATE (NEGATIVE); OCCULT BLOOD,URINE NEGATIVE (NEGATIVE); PROTEIN,URINE NEGATIVE (NEGATIVE)
[2017-03-20 22:14] LABS: ADD UA MICROSCOPIC YES
[2017-03-20 22:23] LABS: SQUAMOUS EPITHELIAL CELL,UR Many /LPF (None Seen)
[2017-03-20 22:24] LABS: RBC,URINE 0-2 /HPF (0-2)
[2017-03-20] MEDS ORDERED: ALBUTEROL SULFATE HFA 90 MCG/PUFF 8 GM INHALER IH PRN (23:15)
[2017-03-21 07:04] LABS: CHOL/HDL RATIO 5.2 (3.9-5.7)
[2017-03-21 08:00] VITALS: BP 116/66
[2017-03-21] MEDS ORDERED: ACETAMINOPHEN 325 MG TABLET PO PRN ×2 (10:00→11:45)
[2017-03-21] MEDS ORDERED: IBUPROFEN 400 MG TABLET PO PRN (10:00)
[2017-03-21] MEDS ORDERED: LOPERAMIDE HCL 2 MG CAPSULE PO PRN (11:45)
[2017-03-21] MEDS ORDERED: PROMETHAZINE HCL 25 MG TABLET PO PRN (11:45)
[2017-03-21] MEDS ORDERED: HydrOXYzine PAMOATE 50 MG CAPSULE PO PRN (11:45)
[2017-03-21] MEDS ORDERED: MAG HYDROX/AL HYDROX/SIMETH ES 30 ML SUSPENSION UDCUP PO PRN (11:45)
[2017-03-21] MEDS ORDERED: HALOPERIDOL 5 MG TABLET PO PRN (11:45)
[2017-03-21] MEDS ORDERED: GuaiFENesin/D-METHORPHAN [SUGAR-FREE] 200-20MG/10 ML SYRUP UDCUP PO PRN (11:45)
[2017-03-21] MEDS ORDERED: MAGNESIUM HYDROXIDE SUSPENSION 30 ML UDCUP PO PRN (11:45)
[2017-03-21] MEDS ORDERED: HALOPERIDOL DECANOATE 50 MG/ML VIAL IM ONE (12:00)
[2017-03-21] MEDS: BENZTROPINE MESYLATE 1 MG TABLET PO SCH (17:22)
[2017-03-21] MEDS: THIAMINE HCL 100 MG TABLET PO SCH (17:22)
[2017-03-21] MEDS: HALOPERIDOL 5 MG TABLET PO SCH (20:08)
[2017-03-21 20:38] VITALS: BP 115/68
[2017-03-22 03:15] VITALS: BP 100/70
[2017-03-22] MEDS: THIAMINE HCL 100 MG TABLET PO SCH ×2 (07:58→17:19)
[2017-03-22] MEDS: MULTIVITAMINS WITH MINERALS, THERAPEUTIC TABLET PO SCH (07:58)
[2017-03-22] MEDS: BENZTROPINE MESYLATE 1 MG TABLET PO SCH ×2 (07:59→17:19)
[2017-03-22] MEDS: FOLIC ACID 1 MG TABLET PO SCH (07:59)
[2017-03-22] MEDS: FLUoxetine HCL 20 MG CAPSULE PO SCH (07:59)
[2017-03-22 08:00] VITALS: BP 101/57
[2017-03-22] MEDS: HALOPERIDOL 5 MG TABLET PO SCH (14:40)
[2017-03-22] MEDS: LORazepam 2 MG TABLET PO PRN (14:40)
[2017-03-22 16:51] VITALS: BP 106/74
[2017-03-23 08:00] VITALS: BP 122/68
[2017-03-23] MEDS: FOLIC ACID 1 MG TABLET PO SCH (08:34)
[2017-03-23] MEDS: THIAMINE HCL 100 MG TABLET PO SCH ×2 (08:34→16:37)
[2017-03-23] MEDS: MULTIVITAMINS WITH MINERALS, THERAPEUTIC TABLET PO SCH (08:34)
[2017-03-23] MEDS: BENZTROPINE MESYLATE 1 MG TABLET PO SCH ×2 (08:34→16:37)
[2017-03-23] MEDS: FLUoxetine HCL 20 MG CAPSULE PO SCH (08:34)
[2017-03-23 16:54] VITALS: BP 103/61
[2017-03-23] MEDS: LORazepam 2 MG TABLET PO PRN (19:28)
[2017-03-23] MEDS: DiphenhydrAMINE HCL 25 MG CAPSULE PO SCH (20:20)
[2017-03-23] MEDS: RisperiDONE 1 MG TABLET PO SCH (20:20)
[2017-03-24 08:00] VITALS: BP 106/58
[2017-03-24] MEDS: MULTIVITAMINS WITH MINERALS, THERAPEUTIC TABLET PO SCH (08:34)
[2017-03-24] MEDS: FOLIC ACID 1 MG TABLET PO SCH (08:35)
[2017-03-24] MEDS: THIAMINE HCL 100 MG TABLET PO SCH ×2 (08:35→18:10)
[2017-03-24] MEDS: BENZTROPINE MESYLATE 1 MG TABLET PO SCH ×2 (08:35→18:10)
[2017-03-24] MEDS: FLUoxetine HCL 20 MG CAPSULE PO SCH (08:35)
[2017-03-24 19:09] VITALS: BP 108/62
[2017-03-24] MEDS: DiphenhydrAMINE HCL 25 MG CAPSULE PO SCH (20:11)
[2017-03-24] MEDS: RisperiDONE 1 MG TABLET PO SCH (20:11)
[2017-03-25] MEDS: CIPROFLOXACIN HCL 500 MG TABLET PO SCH ×2 (09:30→16:24)
[2017-03-25] MEDS: FOLIC ACID 1 MG TABLET PO SCH (09:30)
[2017-03-25] MEDS: FLUoxetine HCL 20 MG CAPSULE PO SCH (09:30)
[2017-03-25] MEDS: BENZTROPINE MESYLATE 1 MG TABLET PO SCH ×2 (09:30→16:24)
[2017-03-25] MEDS: MULTIVITAMINS WITH MINERALS, THERAPEUTIC TABLET PO SCH (09:30)
[2017-03-25] MEDS: THIAMINE HCL 100 MG TABLET PO SCH ×2 (09:30→16:24)
[2017-03-25 09:38] VITALS: BP 115/51
[2017-03-25 16:00] VITALS: BP 100/60
[2017-03-25 17:44] LABS: ALBUMIN 3.8 g/dL (3.4-5.0); BILIRUBIN,DIRECT 0.1 mg/dL (0.00-0.20); BILIRUBIN,TOTAL 0.4 mg/dL (0.1-1.0); TOTAL PROTEIN, SERUM 7.3 g/dL (6.4-8.2)
[2017-03-25] MEDS: RisperiDONE 1 MG TABLET PO SCH (20:58)
[2017-03-25] MEDS: DiphenhydrAMINE HCL 25 MG CAPSULE PO SCH (20:58)
[2017-03-25] MEDS: ZOLPIDEM TARTRATE 10 MG TABLET PO PRN (20:59)
[2017-03-26] MEDS: CIPROFLOXACIN HCL 500 MG TABLET PO SCH ×2 (07:54→17:28)
[2017-03-26] MEDS: THIAMINE HCL 100 MG TABLET PO SCH ×2 (07:54→17:28)
[2017-03-26] MEDS: MULTIVITAMINS WITH MINERALS, THERAPEUTIC TABLET PO SCH (07:54)
[2017-03-26] MEDS: FOLIC ACID 1 MG TABLET PO SCH (07:54)
[2017-03-26] MEDS: FLUoxetine HCL 20 MG CAPSULE PO SCH (07:54)
[2017-03-26] MEDS: BENZTROPINE MESYLATE 1 MG TABLET PO SCH ×2 (07:54→17:28)
[2017-03-26 08:00] VITALS: BP 108/73
[2017-03-26] MEDS: LORazepam 2 MG TABLET PO PRN (12:19)
[2017-03-26 17:00] VITALS: BP 101/57
[2017-03-26] MEDS ORDERED: RisperiDONE 2 MG TABLET PO SCH (21:00)
[2017-03-26] MEDS: DiphenhydrAMINE HCL 25 MG CAPSULE PO SCH (21:29)
[2017-03-27] MEDS ORDERED: DIPH50 PO (03:18)
[2017-03-27] MEDS ORDERED: RISP2 PO (03:19)
[2017-03-27] MEDS ORDERED: CIPR-278 PO (03:20)
[2017-03-27] MEDS ORDERED: FOLI1 PO (03:23)
[2017-03-27] MEDS ORDERED: MULT1CAP36 PO (03:24)
[2017-03-27] MEDS ORDERED: THIA100 PO (03:25)
[2017-03-27 08:05] VITALS: BP 105/56
[2017-03-27] MEDS: BENZTROPINE MESYLATE 1 MG TABLET PO SCH (08:17)
[2017-03-27] MEDS: CIPROFLOXACIN HCL 500 MG TABLET PO SCH (08:17)
[2017-03-27] MEDS: FOLIC ACID 1 MG TABLET PO SCH (08:17)
[2017-03-27] MEDS: THIAMINE HCL 100 MG TABLET PO SCH (08:17)
[2017-03-27] MEDS: MULTIVITAMINS WITH MINERALS, THERAPEUTIC TABLET PO SCH (08:17)
[2017-03-27] MEDS: FLUoxetine HCL 20 MG CAPSULE PO SCH (08:17)
[2017-04-04] MEDS ORDERED: HALOPERIDOL DECANOATE 50 MG/ML VIAL IM SCH (09:00)
== END 2017-03-27 10:15 | disposition home or self-care (01) | DRG 750 ==
LOC: EMS 17:38 → EEVIPCON 17:38 → 3EC 20:57 → 3EI 03-26 14:44
PROVIDERS: ADMIT Psychiatry & Neurology Psychiatry; ATTEND Psychiatry & Neurology Psychiatry
DX: F25.0 Schizoaffective disorder, bipolar type (principal); R45.851 Suicidal ideations; F15.20 Other stimulant dependence, uncomplicated; J45.909 Unspecified asthma, uncomplicated; G47.00 Insomnia, unspecified; F10.20 Alcohol dependence, uncomplicated; F17.200 Nicotine dependence, unspecified, uncomplicated; F12.20 Cannabis dependence, uncomplicated; Z88.2 Allergy status to sulfonamides; Z88.5 Allergy status to narcotic agent; Z91.040 Latex allergy status; Z59.0 Homelessness; Z91.5 Personal history of self-harm; Z91.19 Patient's noncompliance with other medical treatment and regimen
CPT/HCPCS: 76705; 87081; 87086; 93005; 99285; G0480; J1631

== ENCOUNTER 2017-03-27 19:04 | Inpatient (IN) | payer MEDICAID, SELFPAY ==
[~2017-03-27] VITALS: Ht 152.4 cm; Wt 63.0 kg
[~2017-03-27 19:04] MED LIST changes: +CIPR-278 PO; +DIPH50 PO; +FOLI1 PO; +MULT1CAP36 PO; +RISP2 PO; +THIA100 PO
[2017-03-27] MEDS ORDERED: OLANZapine 5 MG RAPDIS TABLET PO PRN (23:30)
[2017-03-27 23:52] LABS: ADD UA MICROSCOPIC YES; APPEARANCE,URINE CLEAR (CLEAR); GLUCOSE, URINE (UA) NEGATIVE (NEGATIVE); KETONES,URINE NEGATIVE (NEGATIVE); LEUKOCYTE ESTERASE ,URINE SMALL (NEGATIVE); OCCULT BLOOD,URINE NEGATIVE (NEGATIVE); PH,URINE 6.5 (5.0-8.0); PROTEIN,URINE NEGATIVE (NEGATIVE)
[2017-03-28 00:08] LABS: RBC,URINE 0-2 /HPF (0-2); SQUAMOUS EPITHELIAL CELL,UR Few /LPF (None Seen)
[2017-03-28 00:11] LABS: THYROID STIMULATING HORMONE 2.32 uIU/mL (0.36-3.74)
[2017-03-28] MEDS ORDERED: INFLUENZA VIRUS VACCINE QVS 2017-18 (3YR+)/PF 60 MCG/0.5 ML SYRINGE IM ONE (00:45)
[2017-03-28] MEDS ORDERED: -PHARMACY VACCINE NOTE- MISC ONE ×2 (00:45)
[2017-03-28] MEDS: ZOLPIDEM TARTRATE 10 MG TABLET PO PRN (02:25)
[2017-03-28 02:30] VITALS: BP 108/66
[2017-03-28] MEDS ORDERED: ACETAMINOPHEN 325 MG TABLET PO PRN ×3 (06:45→18:00)
[2017-03-28] MEDS: ALBUTEROL SULFATE HFA 90 MCG/PUFF 8 GM INHALER IH SCH ×3 (09:14→17:01)
[2017-03-28] MEDS ORDERED: PROMETHAZINE HCL 25 MG TABLET PO PRN (10:15)
[2017-03-28] MEDS ORDERED: LOPERAMIDE HCL 2 MG CAPSULE PO PRN (10:15)
[2017-03-28] MEDS ORDERED: MAGNESIUM HYDROXIDE SUSPENSION 30 ML UDCUP PO PRN (10:15)
[2017-03-28] MEDS ORDERED: RisperiDONE 3 MG TABLET PO PRN (10:15)
[2017-03-28] MEDS ORDERED: HydrOXYzine PAMOATE 50 MG CAPSULE PO PRN (10:15)
[2017-03-28] MEDS ORDERED: GuaiFENesin/D-METHORPHAN [SUGAR-FREE] 200-20MG/10 ML SYRUP UDCUP PO PRN (10:15)
[2017-03-28] MEDS ORDERED: MAG HYDROX/AL HYDROX/SIMETH ES 30 ML SUSPENSION UDCUP PO PRN (10:15)
[2017-03-28 16:13] VITALS: BP 103/63
[2017-03-28] MEDS: LORazepam 2 MG TABLET PO PRN (16:58)
[2017-03-28] MEDS: BENZTROPINE MESYLATE 1 MG TABLET PO SCH (16:58)
[2017-03-28] MEDS: THIAMINE HCL 100 MG TABLET PO SCH (16:58)
[2017-03-28] MEDS: DiphenhydrAMINE HCL 25 MG CAPSULE PO SCH (20:46)
[2017-03-28] MEDS: SIMVASTATIN 20 MG TABLET PO SCH (20:47)
[2017-03-28] MEDS ORDERED: RisperiDONE 3 MG TABLET PO SCH (21:00)
[2017-03-29 05:21] VITALS: BP 117/68
[2017-03-29] MEDS: NALTREXONE HCL 50 MG TABLET PO SCH (08:48)
[2017-03-29] MEDS: FLUoxetine HCL 20 MG CAPSULE PO SCH (08:48)
[2017-03-29] MEDS: BENZTROPINE MESYLATE 1 MG TABLET PO SCH ×2 (08:48→16:34)
[2017-03-29] MEDS: THIAMINE HCL 100 MG TABLET PO SCH ×2 (08:48→16:34)
[2017-03-29] MEDS: ALBUTEROL SULFATE HFA 90 MCG/PUFF 8 GM INHALER IH SCH ×3 (08:48→16:35)
[2017-03-29] MEDS: MULTIVITAMINS WITH MINERALS, THERAPEUTIC TABLET PO SCH (08:48)
[2017-03-29] MEDS: FOLIC ACID 1 MG TABLET PO SCH (08:48)
[2017-03-29] MEDS: LORazepam 2 MG TABLET PO PRN (12:00)
[2017-03-29] MEDS ORDERED: ALBUTEROL SULFATE HFA 90 MCG/PUFF 8 GM INHALER IH PRN (16:00)
[2017-03-29 16:21] VITALS: BP 117/70
[2017-03-29] MEDS: DiphenhydrAMINE HCL 25 MG CAPSULE PO SCH (20:02)
[2017-03-29] MEDS: SIMVASTATIN 20 MG TABLET PO SCH (20:03)
[2017-03-29] MEDS: OMEPRAZOLE 20 MG CAPSULE PO SCH (20:04)
[2017-03-29] MEDS ORDERED: RisperiDONE 4 MG TABLET PO SCH (21:00)
[2017-03-30] MEDS: BENZTROPINE MESYLATE 1 MG TABLET PO SCH ×2 (08:38→16:21)
[2017-03-30] MEDS: THIAMINE HCL 100 MG TABLET PO SCH ×2 (08:38→16:21)
[2017-03-30] MEDS: NALTREXONE HCL 50 MG TABLET PO SCH (08:38)
[2017-03-30] MEDS: FLUoxetine HCL 20 MG CAPSULE PO SCH (08:38)
[2017-03-30] MEDS: MULTIVITAMINS WITH MINERALS, THERAPEUTIC TABLET PO SCH (08:39)
[2017-03-30] MEDS: ALBUTEROL SULFATE HFA 90 MCG/PUFF 8 GM INHALER IH SCH ×3 (08:40→16:21)
[2017-03-30] MEDS: FOLIC ACID 1 MG TABLET PO SCH (08:42)
[2017-03-30] MEDS: LORazepam 2 MG TABLET PO PRN ×2 (10:53→16:21)
[2017-03-30 16:14] VITALS: BP 101/60
[2017-03-30] MEDS: SIMVASTATIN 20 MG TABLET PO SCH (20:17)
[2017-03-30] MEDS: OMEPRAZOLE 20 MG CAPSULE PO SCH (20:17)
[2017-03-30] MEDS: DiphenhydrAMINE HCL 25 MG CAPSULE PO SCH (20:17)
[2017-03-30] MEDS ORDERED: RisperiDONE 2 MG TABLET PO SCH (21:00)
[2017-03-31 03:06] VITALS: BP 121/82
[2017-03-31] MEDS: IBUPROFEN 400 MG TABLET PO PRN (05:59)
[2017-03-31] MEDS: ALBUTEROL SULFATE HFA 90 MCG/PUFF 8 GM INHALER IH SCH ×3 (08:03→16:02)
[2017-03-31] MEDS: FLUoxetine HCL 20 MG CAPSULE PO SCH (08:03)
[2017-03-31] MEDS: THIAMINE HCL 100 MG TABLET PO SCH ×2 (08:03→16:02)
[2017-03-31] MEDS: MULTIVITAMINS WITH MINERALS, THERAPEUTIC TABLET PO SCH (08:03)
[2017-03-31] MEDS: FOLIC ACID 1 MG TABLET PO SCH (08:04)
[2017-03-31] MEDS: BENZTROPINE MESYLATE 1 MG TABLET PO SCH ×2 (08:04→16:02)
[2017-03-31] MEDS: NALTREXONE HCL 50 MG TABLET PO SCH (08:04)
[2017-03-31 08:25] VITALS: BP 100/57
[2017-03-31 16:09] VITALS: BP 103/62
[2017-03-31] MEDS: SIMVASTATIN 20 MG TABLET PO SCH (20:04)
[2017-03-31] MEDS: OMEPRAZOLE 20 MG CAPSULE PO SCH (20:04)
[2017-03-31] MEDS: DiphenhydrAMINE HCL 25 MG CAPSULE PO SCH (20:04)
[2017-03-31] MEDS: LORazepam 2 MG TABLET PO PRN (20:05)
[2017-03-31] MEDS: RisperiDONE 3 MG TABLET PO SCH (20:06)
[2017-04-01 02:55] VITALS: BP 106/68
[2017-04-01] MEDS: LORazepam 2 MG TABLET PO PRN (03:01)
[2017-04-01 08:17] VITALS: BP 103/71
[2017-04-01 08:19] LABS: BASOPHILS % (AUTO) 0.3 % (0.0-2.0); EOSINOPHILS % (AUTO) 1.3 % (1.0-6.0); HEMOGLOBIN 13.7 g/dL (12.0-16.0); LYMPHOCYTES # (AUTO) 2.7 K/uL (1.0-4.8); LYMPHOCYTES % (AUTO) 37.6 % (22.0-44.0); MEAN CORPUSCULAR HEMOGLOBIN 29.5 pg (26.0-34.0); MEAN CORPUSCULAR HGB CONC 34.4 G/dL (31.0-37.0); MEAN CORPUSCULAR VOLUME 86 fL (80-100); MONOCYTES # (AUTO) 0.6 K/uL (0.1-1.0); MONOCYTES % (AUTO) 7.6 % (2.0-9.0); NEUTROPHILS # (AUTO) 3.9 K/uL (1.8-7.7); NEUTROPHILS % (AUTO) 53.2 % (40.0-70.0); PLATELET COUNT (AUTO) 228 K/uL (150-450); RED BLOOD CELL COUNT(AUTO) 4.65 MIL/uL (4.00-5.20); RED CELL DISTRIBUTION WIDTH 14.2 % (11.5-14.5); WHITE BLOOD COUNT (AUTO) 7.3 K/uL (4.5-11.0)
[2017-04-01] MEDS: NALTREXONE HCL 50 MG TABLET PO SCH (08:43)
[2017-04-01] MEDS: FLUoxetine HCL 20 MG CAPSULE PO SCH (08:43)
[2017-04-01] MEDS: MULTIVITAMINS WITH MINERALS, THERAPEUTIC TABLET PO SCH (08:43)
[2017-04-01] MEDS: FOLIC ACID 1 MG TABLET PO SCH (08:43)
[2017-04-01] MEDS: THIAMINE HCL 100 MG TABLET PO SCH ×2 (08:44→16:32)
[2017-04-01] MEDS: BENZTROPINE MESYLATE 1 MG TABLET PO SCH ×2 (08:44→16:32)
[2017-04-01] MEDS: ALBUTEROL SULFATE HFA 90 MCG/PUFF 8 GM INHALER IH SCH ×3 (08:45→16:32)
[2017-04-01 08:54] LABS: ALANINE AMINOTRANSFERASE 25 U/L (12-78); ALBUMIN 4.1 g/dL (3.4-5.0); ANION GAP 9 mmol/L (8-16); ASPARTATE AMINOTRANSFERASE 10 U/L (15-37); BILIRUBIN,TOTAL 0.2 mg/dL (0.1-1.0); CARBON DIOXIDE 26 mmol/L (22-29); CHLORIDE 105 mmol/L (98-107); CREATININE 0.86 mg/dL (0.60-1.30); GLOMERULAR FILTR. RATE CALC > 60 mL/min (>60); POTASSIUM 3.7 mmol/L (3.5-5.1); SODIUM SERUM 140 mmol/L (136-145); TOTAL PROTEIN, SERUM 7.5 g/dL (6.4-8.2); UREA NITROGEN, BLOOD 12 mg/dL (7-18)
[2017-04-01 16:25] VITALS: BP 109/72
[2017-04-01] MEDS: OMEPRAZOLE 20 MG CAPSULE PO SCH (20:43)
[2017-04-01] MEDS: SIMVASTATIN 20 MG TABLET PO SCH (20:43)
[2017-04-01] MEDS: DiphenhydrAMINE HCL 25 MG CAPSULE PO SCH (20:44)
[2017-04-01] MEDS: ZOLPIDEM TARTRATE 10 MG TABLET PO PRN (20:44)
[2017-04-01] MEDS: RisperiDONE 3 MG TABLET PO SCH (20:44)
[2017-04-02 03:21] VITALS: BP 119/67
[2017-04-02 08:20] VITALS: BP 106/62
[2017-04-02] MEDS: ALBUTEROL SULFATE HFA 90 MCG/PUFF 8 GM INHALER IH SCH ×3 (08:22→16:11)
[2017-04-02] MEDS: THIAMINE HCL 100 MG TABLET PO SCH ×2 (08:22→16:11)
[2017-04-02] MEDS: NALTREXONE HCL 50 MG TABLET PO SCH (08:22)
[2017-04-02] MEDS: MULTIVITAMINS WITH MINERALS, THERAPEUTIC TABLET PO SCH (08:22)
[2017-04-02] MEDS: FLUoxetine HCL 20 MG CAPSULE PO SCH (08:22)
[2017-04-02] MEDS: FOLIC ACID 1 MG TABLET PO SCH (08:22)
[2017-04-02] MEDS: BENZTROPINE MESYLATE 1 MG TABLET PO SCH ×2 (08:22→16:11)
[2017-04-02 16:42] VITALS: BP 108/65
[2017-04-02] MEDS: SIMVASTATIN 20 MG TABLET PO SCH (20:29)
[2017-04-02] MEDS: DiphenhydrAMINE HCL 25 MG CAPSULE PO SCH (20:29)
[2017-04-02] MEDS: RisperiDONE 3 MG TABLET PO SCH (20:29)
[2017-04-02] MEDS: OMEPRAZOLE 20 MG CAPSULE PO SCH (20:30)
[2017-04-03 06:40] VITALS: BP 102/60
[2017-04-03 08:08] VITALS: BP 110/66
[2017-04-03] MEDS: FOLIC ACID 1 MG TABLET PO SCH (09:02)
[2017-04-03] MEDS: NALTREXONE HCL 50 MG TABLET PO SCH (09:02)
[2017-04-03] MEDS: ALBUTEROL SULFATE HFA 90 MCG/PUFF 8 GM INHALER IH SCH ×3 (09:02→16:34)
[2017-04-03] MEDS: BENZTROPINE MESYLATE 1 MG TABLET PO SCH (09:02)
[2017-04-03] MEDS: THIAMINE HCL 100 MG TABLET PO SCH ×2 (09:02→16:34)
[2017-04-03] MEDS: MULTIVITAMINS WITH MINERALS, THERAPEUTIC TABLET PO SCH (09:02)
[2017-04-03] MEDS: FLUoxetine HCL 20 MG CAPSULE PO SCH (09:02)
[2017-04-03] MEDS: BENZTROPINE MESYLATE 0.5 MG TABLET PO SCH (16:34)
[2017-04-03 16:42] VITALS: BP 107/63
[2017-04-03 17:28] VITALS: BP 112/68
[2017-04-03] MEDS: IBUPROFEN 400 MG TABLET PO PRN (17:29)
[2017-04-03] MEDS: LORazepam 2 MG TABLET PO PRN (18:37)
[2017-04-03] MEDS: OMEPRAZOLE 20 MG CAPSULE PO SCH (20:48)
[2017-04-03] MEDS: SIMVASTATIN 20 MG TABLET PO SCH (20:48)
[2017-04-03] MEDS: RisperiDONE 3 MG TABLET PO SCH (20:48)
[2017-04-04 09:11] VITALS: BP 95/65
[2017-04-04] MEDS: THIAMINE HCL 100 MG TABLET PO SCH ×2 (09:30→16:46)
[2017-04-04] MEDS: MULTIVITAMINS WITH MINERALS, THERAPEUTIC TABLET PO SCH (09:30)
[2017-04-04] MEDS: FOLIC ACID 1 MG TABLET PO SCH (09:30)
[2017-04-04] MEDS: FLUoxetine HCL 20 MG CAPSULE PO SCH (09:30)
[2017-04-04] MEDS: NALTREXONE HCL 50 MG TABLET PO SCH (09:30)
[2017-04-04] MEDS: ALBUTEROL SULFATE HFA 90 MCG/PUFF 8 GM INHALER IH SCH ×3 (09:31→16:47)
[2017-04-04] MEDS: BENZTROPINE MESYLATE 0.5 MG TABLET PO SCH ×2 (09:34→16:46)
[2017-04-04 16:19] VITALS: BP 95/55
[2017-04-04] MEDS: SIMVASTATIN 20 MG TABLET PO SCH (20:34)
[2017-04-04] MEDS: ZOLPIDEM TARTRATE 10 MG TABLET PO PRN (20:34)
[2017-04-04] MEDS: OMEPRAZOLE 20 MG CAPSULE PO SCH (20:34)
[2017-04-04] MEDS: RisperiDONE 3 MG TABLET PO SCH (20:35)
[2017-04-05 06:19] VITALS: BP 114/65
[2017-04-05 08:12] LABS: CHOL/HDL RATIO 5.9 (3.9-5.7)
[2017-04-05 08:52] VITALS: BP 100/68
[2017-04-05] MEDS ORDERED: FLUoxetine HCL 20 MG CAPSULE PO SCH (09:00)
[2017-04-05] MEDS: MULTIVITAMINS WITH MINERALS, THERAPEUTIC TABLET PO SCH (10:01)
[2017-04-05] MEDS: BENZTROPINE MESYLATE 0.5 MG TABLET PO SCH ×2 (10:01→17:27)
[2017-04-05] MEDS: FOLIC ACID 1 MG TABLET PO SCH (10:01)
[2017-04-05] MEDS: NALTREXONE HCL 50 MG TABLET PO SCH (10:01)
[2017-04-05] MEDS: THIAMINE HCL 100 MG TABLET PO SCH ×2 (10:01→17:27)
[2017-04-05] MEDS: ALBUTEROL SULFATE HFA 90 MCG/PUFF 8 GM INHALER IH SCH ×3 (10:02→17:28)
[2017-04-05 16:53] VITALS: BP 102/68
[2017-04-05] MEDS: SIMVASTATIN 20 MG TABLET PO SCH (20:41)
[2017-04-05] MEDS: RisperiDONE 3 MG TABLET PO SCH (20:42)
[2017-04-05] MEDS: OMEPRAZOLE 20 MG CAPSULE PO SCH (20:42)
[2017-04-05] MEDS: ZOLPIDEM TARTRATE 10 MG TABLET PO PRN (22:07)
[2017-04-06 06:33] VITALS: BP 104/69
[2017-04-06 09:00] VITALS: BP 112/65
[2017-04-06] MEDS: THIAMINE HCL 100 MG TABLET PO SCH ×2 (09:12→16:34)
[2017-04-06] MEDS: NALTREXONE HCL 50 MG TABLET PO SCH (09:12)
[2017-04-06] MEDS: BENZTROPINE MESYLATE 0.5 MG TABLET PO SCH ×2 (09:12→16:33)
[2017-04-06] MEDS: ALBUTEROL SULFATE HFA 90 MCG/PUFF 8 GM INHALER IH SCH ×3 (09:12→16:34)
[2017-04-06] MEDS: MULTIVITAMINS WITH MINERALS, THERAPEUTIC TABLET PO SCH (09:12)
[2017-04-06] MEDS: FOLIC ACID 1 MG TABLET PO SCH (09:12)
[2017-04-06] MEDS: FLUoxetine HCL 20 MG CAPSULE PO SCH (09:12)
[2017-04-06 16:26] VITALS: BP 109/66
[2017-04-06] MEDS: IBUPROFEN 400 MG TABLET PO PRN (16:33)
[2017-04-06] MEDS: RisperiDONE 3 MG TABLET PO SCH (20:35)
[2017-04-06] MEDS: SIMVASTATIN 20 MG TABLET PO SCH (20:35)
[2017-04-06] MEDS: OMEPRAZOLE 20 MG CAPSULE PO SCH (20:35)
[2017-04-07 01:31] VITALS: BP 100/61
[2017-04-07] MEDS: BENZTROPINE MESYLATE 0.5 MG TABLET PO SCH ×2 (09:07→16:35)
[2017-04-07] MEDS: FLUoxetine HCL 20 MG CAPSULE PO SCH (09:07)
[2017-04-07] MEDS: NALTREXONE HCL 50 MG TABLET PO SCH (09:07)
[2017-04-07] MEDS: MULTIVITAMINS WITH MINERALS, THERAPEUTIC TABLET PO SCH (09:07)
[2017-04-07] MEDS: FOLIC ACID 1 MG TABLET PO SCH (09:07)
[2017-04-07] MEDS: THIAMINE HCL 100 MG TABLET PO SCH (09:07)
[2017-04-07] MEDS: ALBUTEROL SULFATE HFA 90 MCG/PUFF 8 GM INHALER IH SCH ×3 (09:08→16:35)
[2017-04-07 09:20] VITALS: BP 115/65
[2017-04-07] MEDS: LORazepam 2 MG TABLET PO PRN (12:35)
[2017-04-07 16:13] VITALS: BP 110/64
[2017-04-07] MEDS: SIMVASTATIN 20 MG TABLET PO SCH (20:36)
[2017-04-07] MEDS: RisperiDONE 3 MG TABLET PO SCH (20:36)
[2017-04-07] MEDS: OMEPRAZOLE 20 MG CAPSULE PO SCH (20:36)
[2017-04-08 04:23] VITALS: BP 102/75
[2017-04-08 08:43] VITALS: BP 84/60
[2017-04-08] MEDS: ALBUTEROL SULFATE HFA 90 MCG/PUFF 8 GM INHALER IH SCH ×3 (09:39→16:28)
[2017-04-08] MEDS: NALTREXONE HCL 50 MG TABLET PO SCH (09:39)
[2017-04-08] MEDS: BENZTROPINE MESYLATE 0.5 MG TABLET PO SCH ×2 (09:40→16:27)
[2017-04-08] MEDS: LORazepam 2 MG TABLET PO PRN (09:40)
[2017-04-08] MEDS: FLUoxetine HCL 20 MG CAPSULE PO SCH (09:40)
[2017-04-08] MEDS: MULTIVITAMINS WITH MINERALS, THERAPEUTIC TABLET PO SCH (09:40)
[2017-04-08 16:23] VITALS: BP 124/80
[2017-04-08] MEDS: RisperiDONE 3 MG TABLET PO SCH (21:02)
[2017-04-08] MEDS: SIMVASTATIN 20 MG TABLET PO SCH (21:02)
[2017-04-08] MEDS: OMEPRAZOLE 20 MG CAPSULE PO SCH (21:02)
[2017-04-09 06:58] VITALS: BP 130/84
[2017-04-09 08:34] VITALS: BP 116/72
[2017-04-09] MEDS: FLUoxetine HCL 20 MG CAPSULE PO SCH (08:49)
[2017-04-09] MEDS: NALTREXONE HCL 50 MG TABLET PO SCH (08:49)
[2017-04-09] MEDS: BENZTROPINE MESYLATE 0.5 MG TABLET PO SCH ×2 (08:49→16:22)
[2017-04-09] MEDS: ALBUTEROL SULFATE HFA 90 MCG/PUFF 8 GM INHALER IH SCH ×3 (08:50→16:22)
[2017-04-09] MEDS: MULTIVITAMINS WITH MINERALS, THERAPEUTIC TABLET PO SCH (08:50)
[2017-04-09 16:43] VITALS: BP 102/69
[2017-04-09] MEDS: SIMVASTATIN 20 MG TABLET PO SCH (20:24)
[2017-04-09] MEDS: RisperiDONE 3 MG TABLET PO SCH (20:24)
[2017-04-09] MEDS: OMEPRAZOLE 20 MG CAPSULE PO SCH (20:24)
[2017-04-10] VITALS: BP 114/69
[2017-04-10] MEDS: FLUoxetine HCL 20 MG CAPSULE PO SCH (08:32)
[2017-04-10] MEDS: MULTIVITAMINS WITH MINERALS, THERAPEUTIC TABLET PO SCH (08:32)
[2017-04-10] MEDS: BENZTROPINE MESYLATE 0.5 MG TABLET PO SCH ×2 (08:32→16:56)
[2017-04-10] MEDS: ALBUTEROL SULFATE HFA 90 MCG/PUFF 8 GM INHALER IH SCH ×3 (08:33→16:56)
[2017-04-10 09:11] VITALS: BP 103/65
[2017-04-10] MEDS: NALTREXONE HCL 50 MG TABLET PO SCH (10:48)
[2017-04-10] MEDS: LORazepam 2 MG TABLET PO PRN (13:22)
[2017-04-10] MEDS ORDERED: RISP3 PO (14:08)
[2017-04-10] MEDS ORDERED: NALT50TA PO (14:08)
[2017-04-10] MEDS ORDERED: FLUO-191 PO (14:08)
[2017-04-10] MEDS ORDERED: BENZ0.5T6 PO (14:08)
[2017-04-10 16:13] VITALS: BP 117/63
[2017-04-10] MEDS: OMEPRAZOLE 20 MG CAPSULE PO SCH (21:21)
[2017-04-10] MEDS: RisperiDONE 3 MG TABLET PO SCH (21:21)
[2017-04-10] MEDS: SIMVASTATIN 20 MG TABLET PO SCH (21:21)
[2017-04-11] MEDS: LORazepam 2 MG TABLET PO PRN (00:15)
[2017-04-11 01:31] VITALS: BP 100/60
[2017-04-11] MEDS: ALBUTEROL SULFATE HFA 90 MCG/PUFF 8 GM INHALER IH SCH (08:41)
[2017-04-11] MEDS: BENZTROPINE MESYLATE 0.5 MG TABLET PO SCH (08:41)
[2017-04-11] MEDS: NALTREXONE HCL 50 MG TABLET PO SCH (08:42)
[2017-04-11] MEDS: MULTIVITAMINS WITH MINERALS, THERAPEUTIC TABLET PO SCH (08:42)
[2017-04-11] MEDS ORDERED: FLUoxetine HCL 20 MG CAPSULE PO SCH (09:00)
[2017-04-11 09:14] VITALS: BP 104/62
[2017-04-11] MEDS ORDERED: ALBU8HFA4 IH (09:22)
[2017-04-11] MEDS ORDERED: SIMV-260 PO (09:22)
== END 2017-04-11 13:30 | disposition home or self-care (01) | DRG 750 ==
LOC: EMS 19:06 → B3A 03-28 01:01 → B2S 04-03 12:06
PROVIDERS: ADMIT Psychiatry & Neurology Psychiatry; ATTEND Psychiatry & Neurology Psychiatry
DX: F25.9 Schizoaffective disorder, unspecified (principal); R45.851 Suicidal ideations; Z91.14 Patient's other noncompliance with medication regimen; E78.5 Hyperlipidemia, unspecified; J45.909 Unspecified asthma, uncomplicated; F31.9 Bipolar disorder, unspecified; K21.9 Gastro-esophageal reflux disease without esophagitis; M54.30 Sciatica, unspecified side; F15.90 Other stimulant use, unspecified, uncomplicated; Z88.2 Allergy status to sulfonamides; Z88.6 Allergy status to analgesic agent; Z91.040 Latex allergy status; Z79.899 Other long term (current) drug therapy; Z28.21 Immunization not carried out because of patient refusal; Z59.0 Homelessness; Z87.440 Personal history of urinary (tract) infections
CPT/HCPCS: 84436; 84439; 84443; 87081; 90471; 99285; J3535

== ENCOUNTER 2017-05-29 19:40 | Emergency (ER) | payer MEDICAID, SELFPAY ==
[~2017-05-29] VITALS: Ht 144.8 cm; Wt 66.0 kg
[~2017-05-29 19:40] MED LIST changes: +ALBU8HFA4 IH; +BENZ0.5T6 PO; -BENZ1TAB10 PO; -CIPR-278 PO; -DIPH50 PO; -FOLI1 PO; -HALO50AM2 IM; -MULT1CAP36 PO; +NALT50TA PO; -NALT50TA6 PO; -RISP2 PO; +RISP3 PO; +SIMV-260 PO; -THIA100 PO
[2017-05-29 20:19] VITALS: BP 123/80
[2017-05-29] MEDS ORDERED: FLUO-191 PO (20:30)
[2017-05-29] MEDS ORDERED: RISP2 PO (20:30)
[2017-05-29] MEDS ORDERED: HYDR-4031 PO (20:30)
[2017-05-29 21:33] LABS: BASOPHILS % (AUTO) 0.5 % (0.0-2.0); EOSINOPHILS % (AUTO) 1.9 % (1.0-6.0); HEMATOCRIT 43.7 % (36-46); HEMOGLOBIN 14.9 g/dL (12.0-16.0); LYMPHOCYTES # (AUTO) 2.9 K/uL (1.0-4.8); LYMPHOCYTES % (AUTO) 35.2 % (22.0-44.0); MEAN CORPUSCULAR HEMOGLOBIN 29.8 pg (26.0-34.0); MEAN CORPUSCULAR HGB CONC 34.1 G/dL (31.0-37.0); MEAN CORPUSCULAR VOLUME 87 fL (80-100); MONOCYTES # (AUTO) 0.7 K/uL (0.1-1.0); MONOCYTES % (AUTO) 8.8 % (2.0-9.0); NEUTROPHILS # (AUTO) 4.4 K/uL (1.8-7.7); NEUTROPHILS % (AUTO) 53.6 % (40.0-70.0); PLATELET COUNT (AUTO) 250 K/uL (150-450); RED BLOOD CELL COUNT(AUTO) 5.01 MIL/uL (4.00-5.20); RED CELL DISTRIBUTION WIDTH 13.1 % (11.5-14.5); WHITE BLOOD COUNT (AUTO) 8.1 K/uL (4.5-11.0)
[2017-05-29 21:52] LABS: ALANINE AMINOTRANSFERASE 36 U/L (12-78); ALBUMIN 4.7 g/dL (3.4-5.0); ANION GAP 9 mmol/L (8-16); ASPARTATE AMINOTRANSFERASE 28 U/L (15-37); BILIRUBIN,TOTAL 0.5 mg/dL (0.1-1.0); CALCIUM, TOTAL 9.6 mg/dL (8.8-10.5); CARBON DIOXIDE 30 mmol/L (22-29); CHLORIDE 98 mmol/L (98-107); GLOMERULAR FILTR. RATE CALC > 60 mL/min (>60); SODIUM SERUM 137 mmol/L (136-145); TOTAL PROTEIN, SERUM 8.5 g/dL (6.4-8.2); UREA NITROGEN, BLOOD 16 mg/dL (7-18)
[2017-05-29 21:53] LABS: POTASSIUM 2.9 mmol/L (3.5-5.1)
== END 2017-05-29 22:05 | disposition left against medical advice (07) ==
LOC: EMS 19:43
DX: R45.851 Suicidal ideations (principal); R44.0 Auditory hallucinations; F31.9 Bipolar disorder, unspecified; F20.9 Schizophrenia, unspecified; J45.909 Unspecified asthma, uncomplicated; F19.90 Other psychoactive substance use, unspecified, uncomplicated; Z87.891 Personal history of nicotine dependence; Z53.21 Procedure and treatment not carried out due to patient leaving prior to being seen by health care provider
CPT/HCPCS: 36415; 80053; 80307; 84703; 85025; 93005; G0480

== ENCOUNTER 2018-02-02 17:33 | Inpatient (IN) | payer MEDICAID ==
[~2018-02-02] VITALS: Ht 144.8 cm; Wt 69.9 kg
[~2018-02-02 17:33] MED LIST changes: -ALBU8HFA4 IH; +BENZ0.5T44 PO; -BENZ0.5T6 PO; -NALT50TA PO; -RISP3 PO; +RISP4TAB63 PO; -SIMV-260 PO
[2018-02-02 18:00] LABS: BASOPHILS % (AUTO) 0.5 % (0.0-2.0); EOSINOPHILS % (AUTO) 1.3 % (1.0-6.0); HEMATOCRIT 40.5 % (36-46); HEMOGLOBIN 13.6 g/dL (12.0-16.0); LYMPHOCYTES # (AUTO) 1.9 K/uL (1.0-4.8); LYMPHOCYTES % (AUTO) 28.8 % (22.0-44.0); MEAN CORPUSCULAR HGB CONC 33.7 G/dL (31.0-37.0); MEAN CORPUSCULAR VOLUME 83 fL (80-100); MONOCYTES # (AUTO) 0.4 K/uL (0.1-1.0); MONOCYTES % (AUTO) 5.6 % (2.0-9.0); NEUTROPHILS # (AUTO) 4.2 K/uL (1.8-7.7); NEUTROPHILS % (AUTO) 63.8 % (40.0-70.0); PLATELET COUNT (AUTO) 245 K/uL (150-450); RED BLOOD CELL COUNT(AUTO) 4.88 MIL/uL (4.00-5.20); RED CELL DISTRIBUTION WIDTH 13.7 % (11.5-14.5)
[2018-02-02 18:11] LABS: ANION GAP 12 mmol/L (8-16); CALCIUM, TOTAL 8.7 mg/dL (8.8-10.5); CARBON DIOXIDE 22 mmol/L (22-29); CHLORIDE 105 mmol/L (98-107); GLOMERULAR FILTR. RATE CALC > 60 mL/min (>60); GLUCOSE,RANDOM 108 mg/dL (70-110); POTASSIUM 3.3 mmol/L (3.5-5.1); SODIUM SERUM 139 mmol/L (136-145); UREA NITROGEN, BLOOD 8 mg/dL (7-18)
[2018-02-02 18:19] LABS: ALANINE AMINOTRANSFERASE 50 U/L (12-78); ALBUMIN 3.6 g/dL (3.4-5.0); ALKALINE PHOSPHATASE 64 U/L (46-116); ASPARTATE AMINOTRANSFERASE 27 U/L (15-37); BILIRUBIN,TOTAL 0.3 mg/dL (0.1-1.0); TOTAL PROTEIN, SERUM 7.1 g/dL (6.4-8.2)
[2018-02-02 18:26] LABS: SALICYLATE < 0.2 mg/dL (2.8-20.0)
[2018-02-02 18:33] LABS: ACETAMINOPHEN < 2 mcg/mL (10-30)
[2018-02-02 19:16] LABS: AMPHET/METH SCREEN,URINE NEGATIVE (NEGATIVE); BARBITURATE SCREEN, URINE NEGATIVE (NEGATIVE); BENZODIAZEPINES SCREEN,URINE NEGATIVE (NEGATIVE); CANNABINOID SCREEN,URINE NEGATIVE (NEGATIVE); COCAINE SCREEN,URINE NEGATIVE (NEGATIVE); METHADONE SCREEN, URINE NEGATIVE (NEGATIVE); OPIATE SCREEN,URINE POSITIVE (NEGATIVE)
[2018-02-02 19:17] LABS: PHENCYCLIDINE SCREEN,URINE NEGATIVE (NEGATIVE)
[2018-02-02] MEDS ORDERED: LORazepam 1 MG TABLET PO ONE (19:30)
[2018-02-02] MEDS ORDERED: POTASSIUM CHLORIDE 20 MEQ ER TABLET PO ONE (22:00)
[2018-02-03] MEDS ORDERED: HALOPERIDOL 5 MG TABLET PO PRN
[2018-02-03] MEDS ORDERED: ZOLPIDEM TARTRATE 10 MG TABLET PO PRN
[2018-02-03 17:03] VITALS: BP 117/73
[2018-02-03] MEDS ORDERED: IBUPROFEN 400 MG TABLET PO PRN (18:45)
[2018-02-03] MEDS ORDERED: NICOTINE 14 MG/24 HOUR PATCH TD PRN (18:45)
[2018-02-03] MEDS ORDERED: MAGNESIUM HYDROXIDE SUSPENSION 30 ML UDCUP PO PRN (18:45)
[2018-02-03] MEDS ORDERED: CloNIDine HCL 0.1 MG TABLET PO PRN (18:45)
[2018-02-03] MEDS ORDERED: PETROLATUM,WHITE 71 GM JELLY TP PRN (18:45)
[2018-02-03] MEDS ORDERED: GuaiFENesin/D-METHORPHAN [SUGAR-FREE] 200-20MG/10 ML SYRUP UDCUP PO PRN (18:45)
[2018-02-03] MEDS ORDERED: LOPERAMIDE HCL 2 MG CAPSULE PO PRN (18:45)
[2018-02-03] MEDS ORDERED: MAG HYDROX/AL HYDROX/SIMETH ES 30 ML SUSPENSION UDCUP PO PRN (18:45)
[2018-02-03] MEDS ORDERED: ACETAMINOPHEN 325 MG TABLET PO PRN (18:45)
[2018-02-03] MEDS ORDERED: ALBUTEROL SULFATE HFA 90 MCG/PUFF 8 GM INHALER IH PRN (18:45)
[2018-02-03] MEDS ORDERED: ONDANSETRON HCL 4 MG TABLET PO PRN (18:45)
[2018-02-03] MEDS ORDERED: DOCUSATE SODIUM 100 MG CAPSULE PO PRN (18:45)
[2018-02-04 07:03] VITALS: BP 121/68
[2018-02-04 08:11] VITALS: BP 139/91
[2018-02-04 08:44] LABS: BASOPHILS % (AUTO) 0.7 % (0.0-2.0); EOSINOPHILS % (AUTO) 1.6 % (1.0-6.0); HEMATOCRIT 43.1 % (36-46); HEMOGLOBIN 14.5 g/dL (12.0-16.0); LYMPHOCYTES # (AUTO) 2.7 K/uL (1.0-4.8); LYMPHOCYTES % (AUTO) 44.3 % (22.0-44.0); MEAN CORPUSCULAR HEMOGLOBIN 28.1 pg (26.0-34.0); MEAN CORPUSCULAR HGB CONC 33.7 G/dL (31.0-37.0); MEAN CORPUSCULAR VOLUME 84 fL (80-100); MONOCYTES # (AUTO) 0.5 K/uL (0.1-1.0); MONOCYTES % (AUTO) 7.4 % (2.0-9.0); NEUTROPHILS # (AUTO) 2.9 K/uL (1.8-7.7); PLATELET COUNT (AUTO) 245 K/uL (150-450); RED BLOOD CELL COUNT(AUTO) 5.16 MIL/uL (4.00-5.20); RED CELL DISTRIBUTION WIDTH 13.8 % (11.5-14.5)
[2018-02-04 09:02] LABS: HEMOGLOBIN A1C 5.4 % (4.5-6.2)
[2018-02-04 11:24] LABS: ALANINE AMINOTRANSFERASE 69 U/L (12-78); ALBUMIN 3.7 g/dL (3.4-5.0); ALKALINE PHOSPHATASE 61 U/L (46-116); ANION GAP 15 mmol/L (8-16); ASPARTATE AMINOTRANSFERASE 49 U/L (15-37); BILIRUBIN,TOTAL 0.5 mg/dL (0.1-1.0); CARBON DIOXIDE 23 mmol/L (22-29); CHLORIDE 105 mmol/L (98-107); CHOL/HDL RATIO 5.4 (3.9-5.7); CHOLESTEROL 210 mg/dL (131-200); CREATININE 0.83 mg/dL (0.60-1.30); GLOMERULAR FILTR. RATE CALC > 60 mL/min (>60); GLUCOSE,RANDOM 84 mg/dL (70-110); HDL CHOLESTEROL 39 mg/dL (40-60); LDL CHOL (CALC.) 140 mg/dL (0-130); POTASSIUM 3.6 mmol/L (3.5-5.1); SODIUM SERUM 143 mmol/L (136-145); TOTAL PROTEIN, SERUM 6.9 g/dL (6.4-8.2); TRIGLYCERIDES 157 mg/dL (15-150); UREA NITROGEN, BLOOD 12 mg/dL (7-18)
[2018-02-04] MEDS: BENZTROPINE MESYLATE 0.5 MG TABLET PO SCH (16:04)
[2018-02-04] MEDS: LORazepam 2 MG TABLET PO PRN (16:48)
[2018-02-04 17:11] VITALS: BP 110/65
[2018-02-04] MEDS: RisperiDONE 4 MG TABLET PO SCH (20:20)
[2018-02-05 06:11] VITALS: BP 125/71
[2018-02-05 08:18] VITALS: BP 121/69
[2018-02-05] MEDS: FLUoxetine HCL 20 MG CAPSULE PO SCH (09:07)
[2018-02-05] MEDS: BENZTROPINE MESYLATE 0.5 MG TABLET PO SCH ×2 (09:07→16:54)
[2018-02-05 16:21] VITALS: BP 110/67
[2018-02-05] MEDS: LORazepam 2 MG TABLET PO PRN (17:52)
[2018-02-05 19:02] VITALS: BP 115/65
[2018-02-05] MEDS: RisperiDONE 4 MG TABLET PO SCH (20:04)
[2018-02-06] VITALS: BP 112/62
[2018-02-06] MEDS: FLUoxetine HCL 20 MG CAPSULE PO SCH (08:59)
[2018-02-06] MEDS: BENZTROPINE MESYLATE 0.5 MG TABLET PO SCH (08:59)
[2018-02-06 09:59] VITALS: BP 118/70
== END 2018-02-06 16:15 | disposition home or self-care (01) | DRG 750 ==
LOC: EMS 17:34 → B3A 02-03 14:06 → B2S 02-05 15:45
PROVIDERS: ADMIT Psychiatry & Neurology Psychiatry; ATTEND Psychiatry & Neurology Psychiatry
DX: F25.0 Schizoaffective disorder, bipolar type (principal); Z59.0 Homelessness; R45.851 Suicidal ideations; E78.5 Hyperlipidemia, unspecified; M54.30 Sciatica, unspecified side; K21.9 Gastro-esophageal reflux disease without esophagitis; J45.909 Unspecified asthma, uncomplicated; F41.9 Anxiety disorder, unspecified; F15.90 Other stimulant use, unspecified, uncomplicated; E87.6 Hypokalemia; F32.9 Major depressive disorder, single episode, unspecified; Z88.8 Allergy status to other drugs, medicaments and biological substances; Z88.2 Allergy status to sulfonamides; Z88.5 Allergy status to narcotic agent
CPT/HCPCS: 83036; 84443; 87081; 99285; G0480; G0481; J3535

== ENCOUNTER 2018-05-15 03:11 | Inpatient (IN) | payer MEDICAID ==
[~2018-05-15] VITALS: Ht 144.8 cm; Wt 77.0 kg
[2018-05-15] MEDS ORDERED: HALOPERIDOL 5 MG TABLET PO PRN ×2 (04:00→12:30)
[2018-05-15] MEDS ORDERED: LORazepam 2 MG TABLET PO PRN (04:00)
[2018-05-15] MEDS ORDERED: ZOLPIDEM TARTRATE 10 MG TABLET PO PRN (04:00)
[2018-05-15 04:04] LABS: BASOPHILS % (AUTO) 0.8 % (0.0-2.0); EOSINOPHILS % (AUTO) 0.8 % (1.0-6.0); HEMATOCRIT 39.8 % (36-46); HEMOGLOBIN 13.7 g/dL (12.0-16.0); LYMPHOCYTES # (AUTO) 2.1 K/uL (1.0-4.8); LYMPHOCYTES % (AUTO) 27.6 % (22.0-44.0); MEAN CORPUSCULAR HEMOGLOBIN 28.4 pg (26.0-34.0); MEAN CORPUSCULAR HGB CONC 34.5 G/dL (31.0-37.0); MEAN CORPUSCULAR VOLUME 82 fL (80-100); MONOCYTES # (AUTO) 0.7 K/uL (0.1-1.0); MONOCYTES % (AUTO) 9.5 % (2.0-9.0); NEUTROPHILS # (AUTO) 4.8 K/uL (1.8-7.7); NEUTROPHILS % (AUTO) 61.3 % (40.0-70.0); PLATELET COUNT (AUTO) 247 K/uL (150-450); RED BLOOD CELL COUNT(AUTO) 4.83 MIL/uL (4.00-5.20); RED CELL DISTRIBUTION WIDTH 13.4 % (11.5-14.5)
[2018-05-15 04:15] LABS: ANION GAP 10 mmol/L (8-16); CALCIUM, TOTAL 8.5 mg/dL (8.8-10.5); CARBON DIOXIDE 26 mmol/L (22-29); CHLORIDE 103 mmol/L (98-107); CREATININE 1.07 mg/dL (0.60-1.30); GLOMERULAR FILTR. RATE CALC 60 mL/min (>60); GLUCOSE,RANDOM 109 mg/dL (70-110); POTASSIUM 3.5 mmol/L (3.5-5.1); SODIUM SERUM 139 mmol/L (136-145); UREA NITROGEN, BLOOD 22 mg/dL (7-18)
[2018-05-15 04:26] LABS: ALANINE AMINOTRANSFERASE 89 U/L (12-78); ALBUMIN 3.8 g/dL (3.4-5.0); ALKALINE PHOSPHATASE 77 U/L (46-116); ASPARTATE AMINOTRANSFERASE 57 U/L (15-37); BILIRUBIN,TOTAL 0.4 mg/dL (0.1-1.0); HCG,QUANTITATIVE < 1 mIU/mL (0-6); TOTAL PROTEIN, SERUM 7.4 g/dL (6.4-8.2)
[2018-05-15] MEDS ORDERED: ACETAMINOPHEN 500 MG TABLET PO ONE (05:30)
[2018-05-15 05:35] LABS: AMPHET/METH SCREEN,URINE POSITIVE (NEGATIVE); BARBITURATE SCREEN, URINE NEGATIVE (NEGATIVE); BENZODIAZEPINES SCREEN,URINE NEGATIVE (NEGATIVE); CANNABINOID SCREEN,URINE NEGATIVE (NEGATIVE); COCAINE SCREEN,URINE NEGATIVE (NEGATIVE); METHADONE SCREEN, URINE NEGATIVE (NEGATIVE); OPIATE SCREEN,URINE NEGATIVE (NEGATIVE)
[2018-05-15 05:38] LABS: PHENCYCLIDINE SCREEN,URINE NEGATIVE (NEGATIVE)
[2018-05-15] MEDS ORDERED: PNEUMOCOCCAL VACCINE POLYVALENT 0.5 ML VIAL [PPSV23] IM ONE (06:15)
[2018-05-15 06:36] VITALS: BP 113/67
[2018-05-15 08:15] VITALS: BP 115/71
[2018-05-15] MEDS ORDERED: GuaiFENesin/D-METHORPHAN [SUGAR-FREE] 200-20MG/10 ML SYRUP UDCUP PO PRN (11:45)
[2018-05-15] MEDS ORDERED: RisperiDONE 1 MG TABLET PO PRN (11:45)
[2018-05-15] MEDS ORDERED: ACETAMINOPHEN 325 MG TABLET PO PRN (11:45)
[2018-05-15] MEDS ORDERED: LOPERAMIDE HCL 2 MG CAPSULE PO PRN (11:45)
[2018-05-15] MEDS ORDERED: PROMETHAZINE HCL 25 MG TABLET PO PRN (11:45)
[2018-05-15] MEDS ORDERED: HydrOXYzine PAMOATE 50 MG CAPSULE PO PRN (11:45)
[2018-05-15] MEDS ORDERED: MAG HYDROX/AL HYDROX/SIMETH ES 30 ML SUSPENSION UDCUP PO PRN (11:45)
[2018-05-15] MEDS ORDERED: MAGNESIUM HYDROXIDE SUSPENSION 30 ML UDCUP PO PRN (11:45)
[2018-05-15] MEDS ORDERED: HALOPERIDOL DECANOATE 50 MG/ML VIAL IM ONE (12:30)
[2018-05-15] MEDS: BENZTROPINE MESYLATE 1 MG TABLET PO SCH ×2 (12:40→16:37)
[2018-05-15 16:22] VITALS: BP 127/71
[2018-05-15] MEDS: THIAMINE HCL 100 MG TABLET PO SCH (16:37)
[2018-05-15] MEDS: HALOPERIDOL 10 MG TABLET PO SCH (20:58)
[2018-05-15] MEDS ORDERED: RisperiDONE 3 MG TABLET PO SCH (21:00)
[2018-05-16 05:47] VITALS: BP 115/58
[2018-05-16 08:08] VITALS: BP 112/73
[2018-05-16] MEDS: THIAMINE HCL 100 MG TABLET PO SCH ×2 (08:56→17:11)
[2018-05-16] MEDS: MULTIVITAMINS WITH MINERALS, THERAPEUTIC TABLET PO SCH (08:57)
[2018-05-16] MEDS: FOLIC ACID 1 MG TABLET PO SCH (08:57)
[2018-05-16] MEDS: FLUoxetine HCL 20 MG CAPSULE PO SCH (08:57)
[2018-05-16] MEDS: NALTREXONE HCL 50 MG TABLET PO SCH (08:57)
[2018-05-16] MEDS: BENZTROPINE MESYLATE 1 MG TABLET PO SCH ×3 (08:57→17:11)
[2018-05-16 16:33] VITALS: BP 134/74
[2018-05-16] MEDS ORDERED: LORazepam 2 MG/ML VIAL IM ONE (17:30)
[2018-05-16] MEDS ORDERED: HALOPERIDOL LACTATE 5 MG/ML VIAL IM ONE (17:30)
[2018-05-16] MEDS ORDERED: DiphenhydrAMINE HCL 50 MG/ML VIAL IM ONE (17:30)
[2018-05-16 17:50] VITALS: BP 118/75
[2018-05-16 18:34] VITALS: BP 111/70
[2018-05-16] MEDS: HALOPERIDOL 10 MG TABLET PO SCH (21:00)
[2018-05-17 06:04] VITALS: BP 108/77
[2018-05-17 08:05] VITALS: BP 139/72
[2018-05-17] MEDS: FLUoxetine HCL 20 MG CAPSULE PO SCH (08:09)
[2018-05-17] MEDS: FOLIC ACID 1 MG TABLET PO SCH (08:09)
[2018-05-17] MEDS: THIAMINE HCL 100 MG TABLET PO SCH ×2 (08:09→17:00)
[2018-05-17] MEDS: BENZTROPINE MESYLATE 1 MG TABLET PO SCH ×3 (08:09→17:00)
[2018-05-17] MEDS: MULTIVITAMINS WITH MINERALS, THERAPEUTIC TABLET PO SCH (08:09)
[2018-05-17] MEDS: NALTREXONE HCL 50 MG TABLET PO SCH (08:50)
[2018-05-17] MEDS ORDERED: FLUO-191 PO (14:53)
[2018-05-17] MEDS ORDERED: NALT50TA PO (14:53)
[2018-05-17] MEDS ORDERED: BENZ1TAB10 PO (14:53)
[2018-05-17] MEDS ORDERED: HALO50VI4 IM (14:53)
[2018-05-17 16:00] VITALS: BP 120/66
[2018-05-18 00:07] VITALS: BP 121/60
[2018-05-18] MEDS: FLUoxetine HCL 20 MG CAPSULE PO SCH (08:01)
[2018-05-18] MEDS: BENZTROPINE MESYLATE 1 MG TABLET PO SCH (08:01)
[2018-05-18] MEDS: THIAMINE HCL 100 MG TABLET PO SCH (08:01)
[2018-05-18] MEDS: MULTIVITAMINS WITH MINERALS, THERAPEUTIC TABLET PO SCH (08:01)
[2018-05-18] MEDS: FOLIC ACID 1 MG TABLET PO SCH (08:01)
[2018-05-18 08:12] VITALS: BP 138/86
[2018-05-18] MEDS ORDERED: FLUO-191 PO (08:17)
[2018-05-18] MEDS ORDERED: BENZ1TAB10 PO (08:17)
[2018-05-18] MEDS ORDERED: HALO50VI4 IM (08:17)
[2018-05-18] MEDS ORDERED: NALT50TA6 PO (08:17)
[2018-05-18] MEDS: NALTREXONE HCL 50 MG TABLET PO SCH (08:42)
[2018-05-18 09:21] LABS: CHOL/HDL RATIO 5.5 (3.9-5.7)
[2018-05-29] MEDS ORDERED: HALOPERIDOL DECANOATE 50 MG/ML VIAL IM SCH (09:00)
== END 2018-05-18 10:00 | disposition home or self-care (01) | DRG 750 ==
LOC: EMS 03:11 → B2S 04:30
PROVIDERS: ADMIT Psychiatry & Neurology Psychiatry; ATTEND Psychiatry & Neurology Psychiatry
DX: F25.9 Schizoaffective disorder, unspecified (principal); R45.851 Suicidal ideations; Z59.0 Homelessness; F31.9 Bipolar disorder, unspecified; H91.90 Unspecified hearing loss, unspecified ear; J44.9 Chronic obstructive pulmonary disease, unspecified; K21.9 Gastro-esophageal reflux disease without esophagitis; F12.90 Cannabis use, unspecified, uncomplicated; F15.90 Other stimulant use, unspecified, uncomplicated; F17.200 Nicotine dependence, unspecified, uncomplicated; M54.30 Sciatica, unspecified side; Z91.040 Latex allergy status; Z88.6 Allergy status to analgesic agent; Z91.14 Patient's other noncompliance with medication regimen; Z81.8 Family history of other mental and behavioral disorders; Z88.2 Allergy status to sulfonamides; Z91.19 Patient's noncompliance with other medical treatment and regimen; Z79.899 Other long term (current) drug therapy; Z28.21 Immunization not carried out because of patient refusal
CPT/HCPCS: G0480; J1200; J1630; J1631; J2060

== ENCOUNTER 2019-02-03 15:14 | Inpatient (IN) | payer MEDICAID ==
[~2019-02-03] VITALS: Ht 144.8 cm; Wt 70.8 kg
[~2019-02-03 15:14] MED LIST changes: -BENZ0.5T44 PO; +BENZ1TAB10 PO; +HALO50VI4 IM; +NALT50TA PO; +NALT50TA6 PO; -RISP4TAB63 PO
[2019-02-03 16:01] VITALS: BP 116/58
[2019-02-03] MEDS ORDERED: HALOPERIDOL 5 MG TABLET PO PRN (16:30)
[2019-02-03] MEDS ORDERED: RISP1 PO (16:35)
[2019-02-03] MEDS ORDERED: BENZ1TAB10 PO (16:35)
[2019-02-03 17:07] VITALS: BP 112/70
[2019-02-03] MEDS: LORazepam 2 MG TABLET PO PRN (17:36)
[2019-02-04] MEDS: ZOLPIDEM TARTRATE 10 MG TABLET PO PRN (00:59)
[2019-02-04] MEDS: LORazepam 2 MG TABLET PO PRN ×2 (00:59→16:56)
[2019-02-04 01:00] VITALS: BP 126/76
[2019-02-04] MEDS: BuPROPion HCL XL 150 MG ER TABLET PO SCH (12:27)
[2019-02-04 12:36] VITALS: BP 102/72
[2019-02-04] MEDS ORDERED: CloNIDine HCL 0.1 MG TABLET PO PRN (14:00)
[2019-02-04] MEDS ORDERED: PETROLATUM,WHITE 28 GM JELLY TP PRN (14:00)
[2019-02-04] MEDS ORDERED: ALBUTEROL SULFATE HFA 90 MCG/PUFF 8 GM INHALER IH PRN (14:00)
[2019-02-04] MEDS ORDERED: IBUPROFEN 400 MG TABLET PO PRN (14:00)
[2019-02-04] MEDS ORDERED: MAGNESIUM HYDROXIDE SUSPENSION 30 ML UDCUP PO PRN (14:00)
[2019-02-04] MEDS ORDERED: NICOTINE 14 MG/24 HOUR PATCH TD PRN (14:00)
[2019-02-04] MEDS ORDERED: MAG HYDROX/AL HYDROX/SIMETH ES 30 ML SUSPENSION UDCUP PO PRN (14:00)
[2019-02-04] MEDS ORDERED: GuaiFENesin/D-METHORPHAN [SUGAR-FREE] 200-20MG/10 ML SYRUP UDCUP PO PRN (14:00)
[2019-02-04] MEDS ORDERED: ONDANSETRON HCL 4 MG TABLET PO PRN (14:00)
[2019-02-04] MEDS ORDERED: LOPERAMIDE HCL 2 MG CAPSULE PO PRN (14:00)
[2019-02-04] MEDS ORDERED: DOCUSATE SODIUM 100 MG CAPSULE PO PRN (14:00)
[2019-02-04] MEDS ORDERED: ACETAMINOPHEN 325 MG TABLET PO PRN (14:00)
[2019-02-04 16:11] VITALS: BP 106/68
[2019-02-04] MEDS: OLANZapine 5 MG TABLET PO SCH ×3 (20:13→21:46)
[2019-02-05] MEDS: BuPROPion HCL XL 150 MG ER TABLET PO SCH (08:53)
[2019-02-05 16:13] VITALS: BP 129/60
[2019-02-05] MEDS: ZOLPIDEM TARTRATE 10 MG TABLET PO PRN (20:22)
[2019-02-05] MEDS: OLANZapine 5 MG TABLET PO SCH (20:22)
[2019-02-06 06:31] VITALS: BP 116/61
[2019-02-06] MEDS: BuPROPion HCL XL 150 MG ER TABLET PO SCH (08:51)
[2019-02-06 08:58] LABS: BASOPHILS % (AUTO) 0.6 % (0.0-2.0); EOSINOPHILS % (AUTO) 1.9 % (1.0-6.0); HEMATOCRIT 42.4 % (36-46); HEMOGLOBIN 14.1 g/dL (12.0-16.0); LYMPHOCYTES # (AUTO) 2.8 K/uL (1.0-4.8); LYMPHOCYTES % (AUTO) 37.7 % (22.0-44.0); MEAN CORPUSCULAR HEMOGLOBIN 28.5 pg (26.0-34.0); MEAN CORPUSCULAR HGB CONC 33.3 G/dL (31.0-37.0); MEAN CORPUSCULAR VOLUME 86 fL (80-100); MONOCYTES # (AUTO) 0.5 K/uL (0.1-1.0); MONOCYTES % (AUTO) 7.1 % (2.0-9.0); NEUTROPHILS # (AUTO) 3.9 K/uL (1.8-7.7); NEUTROPHILS % (AUTO) 52.7 % (40.0-70.0); PLATELET COUNT (AUTO) 263 K/uL (150-450); RED BLOOD CELL COUNT(AUTO) 4.94 MIL/uL (4.00-5.20); RED CELL DISTRIBUTION WIDTH 13.7 % (11.5-14.5)
[2019-02-06 09:31] LABS: ALANINE AMINOTRANSFERASE 30 U/L (12-78); ALBUMIN 3.8 g/dL (3.4-5.0); ALKALINE PHOSPHATASE 76 U/L (46-116); ANION GAP 9 mmol/L (8-16); ASPARTATE AMINOTRANSFERASE 19 U/L (15-37); BILIRUBIN,TOTAL 0.5 mg/dL (0.1-1.0); CALCIUM, TOTAL 9.1 mg/dL (8.8-10.5); CARBON DIOXIDE 27 mmol/L (22-29); CHLORIDE 102 mmol/L (98-107); CHOL/HDL RATIO 5.5 (3.9-5.7); CHOLESTEROL 202 mg/dL (131-200); CREATININE 0.92 mg/dL (0.60-1.30); FREE T4 (FREE THYROXINE) 0.88 ng/dL (0.76-1.46); GLOMERULAR FILTR. RATE CALC > 60 mL/min (>60); GLUCOSE,RANDOM 80 mg/dL (70-110); HCG,QUANTITATIVE < 1 mIU/mL (0-6); HDL CHOLESTEROL 37 mg/dL (40-60); LDL CHOL (CALC.) 134 mg/dL (0-130); POTASSIUM 3.9 mmol/L (3.5-5.1); SODIUM SERUM 138 mmol/L (136-145); TRIGLYCERIDES 154 mg/dL (15-150); UREA NITROGEN, BLOOD 12 mg/dL (7-18)
[2019-02-06] MEDS ORDERED: BuPROPion HCL XL 150 MG ER TABLET PO ONE (10:15)
[2019-02-06 16:09] VITALS: BP 125/73
[2019-02-06] MEDS: LORazepam 2 MG TABLET PO PRN (17:07)
[2019-02-06 17:46] VITALS: BP 124/85
[2019-02-06] MEDS: OLANZapine 5 MG TABLET PO SCH (20:12)
[2019-02-06] MEDS: ZOLPIDEM TARTRATE 10 MG TABLET PO PRN (20:12)
[2019-02-06] MEDS ORDERED: SIMVASTATIN 10 MG TABLET PO SCH (21:00)
[2019-02-07 06:51] VITALS: BP 129/64
[2019-02-07 08:41] VITALS: BP 118/71
[2019-02-07] MEDS ORDERED: BuPROPion HCL XL 150 MG ER TABLET PO SCH (09:00)
[2019-02-07] MEDS ORDERED: BUPR300T53 PO (12:12)
[2019-02-07] MEDS ORDERED: OLAN5TAB27 PO (12:12)
[2019-02-07] MEDS ORDERED: SIMV10TA6 PO (12:12)
== END 2019-02-07 13:44 | disposition home or self-care (01) | DRG 750 ==
LOC: B3A 16:21
PROVIDERS: ADMIT Psychiatry & Neurology Psychiatry; ATTEND Psychiatry & Neurology Psychiatry
DX: F25.1 Schizoaffective disorder, depressive type (principal); R45.851 Suicidal ideations; E78.5 Hyperlipidemia, unspecified; F10.10 Alcohol abuse, uncomplicated; J45.909 Unspecified asthma, uncomplicated; K21.9 Gastro-esophageal reflux disease without esophagitis; M54.30 Sciatica, unspecified side; F41.9 Anxiety disorder, unspecified; F19.10 Other psychoactive substance abuse, uncomplicated; Z71.41 Alcohol abuse counseling and surveillance of alcoholic; Z71.51 Drug abuse counseling and surveillance of drug abuser
CPT/HCPCS: 83036; 84439; 84443

== ENCOUNTER 2019-03-09 15:49 | Inpatient (IN) | payer MEDICAID ==
[~2019-03-09] VITALS: Ht 144.8 cm; Wt 69.1 kg
[~2019-03-09 15:49] MED LIST changes: -BENZ1TAB10 PO; +BUPR300T53 PO; -FLUO-191 PO; -HALO50VI4 IM; -NALT50TA PO; -NALT50TA6 PO; +OLAN5TAB27 PO; +SIMV10TA6 PO
[2019-03-09 16:47] VITALS: BP 103/67
[2019-03-09] MEDS ORDERED: ChlorproMAZINE HCL 50 MG TABLET PO PRN (17:15)
[2019-03-09] MEDS: BuPROPion HCL XL 150 MG ER TABLET PO SCH (18:47)
[2019-03-09] MEDS: OLANZapine 5 MG TABLET PO SCH (20:07)
[2019-03-09 20:30] VITALS: BP 122/70
[2019-03-09] MEDS: LORazepam 1 MG TABLET PO PRN (20:43)
[2019-03-09] MEDS: ZOLPIDEM TARTRATE 10 MG TABLET PO PRN (20:43)
[2019-03-09] MEDS ORDERED: MAGNESIUM HYDROXIDE SUSPENSION 30 ML UDCUP PO PRN (20:45)
[2019-03-09] MEDS ORDERED: CloNIDine HCL 0.1 MG TABLET PO PRN (20:45)
[2019-03-09] MEDS ORDERED: BENZOCAINE/MENTHOL LOZENGE MM PRN (20:45)
[2019-03-09] MEDS ORDERED: PETROLATUM,WHITE 28 GM JELLY TP PRN (20:45)
[2019-03-09] MEDS ORDERED: DOCUSATE SODIUM 100 MG CAPSULE PO PRN (20:45)
[2019-03-09] MEDS ORDERED: LOPERAMIDE HCL 2 MG CAPSULE PO PRN (20:45)
[2019-03-09] MEDS ORDERED: IBUPROFEN 600 MG TABLET PO PRN (20:45)
[2019-03-09] MEDS ORDERED: OMEPRAZOLE 20 MG CAPSULE PO PRN (20:45)
[2019-03-09] MEDS ORDERED: ALBUTEROL SULFATE HFA 90 MCG/PUFF 8 GM INHALER IH PRN (20:45)
[2019-03-09] MEDS ORDERED: BACITRACIN 28.4 GM OINTMENT TP PRN (20:45)
[2019-03-09] MEDS ORDERED: ONDANSETRON HCL 4 MG TABLET PO PRN (20:45)
[2019-03-09] MEDS ORDERED: ACETAMINOPHEN 325 MG TABLET PO PRN (20:45)
[2019-03-09] MEDS ORDERED: MAG HYDROX/AL HYDROX/SIMETH ES 30 ML SUSPENSION UDCUP PO PRN (20:45)
[2019-03-09] MEDS ORDERED: PNEUMOCOCCAL VACCINE POLYVALENT 0.5 ML VIAL [PPSV23] IM ONE (23:15)
[2019-03-10 08:27] LABS: BASOPHILS % (AUTO) 0.6 % (0.0-2.0); HEMATOCRIT 40.6 % (36-46); HEMOGLOBIN 13.6 g/dL (12.0-16.0); LYMPHOCYTES # (AUTO) 2.5 K/uL (1.0-4.8); LYMPHOCYTES % (AUTO) 36.5 % (22.0-44.0); MEAN CORPUSCULAR HGB CONC 33.3 G/dL (31.0-37.0); MEAN CORPUSCULAR VOLUME 84 fL (80-100); MONOCYTES # (AUTO) 0.5 K/uL (0.1-1.0); MONOCYTES % (AUTO) 7.9 % (2.0-9.0); NEUTROPHILS # (AUTO) 3.6 K/uL (1.8-7.7); PLATELET COUNT (AUTO) 249 K/uL (150-450); RED BLOOD CELL COUNT(AUTO) 4.84 MIL/uL (4.00-5.20); RED CELL DISTRIBUTION WIDTH 14.2 % (11.5-14.5)
[2019-03-10 08:31] LABS: APPEARANCE,URINE TURBID (CLEAR); BILIRUBIN,URINE NEGATIVE (NEGATIVE); GLUCOSE, URINE (UA) NEGATIVE (NEGATIVE); KETONES,URINE NEGATIVE (NEGATIVE); LEUKOCYTE ESTERASE ,URINE SMALL (NEGATIVE); NITRATE,URINE NEGATIVE (NEGATIVE); OCCULT BLOOD,URINE NEGATIVE (NEGATIVE); PH,URINE 5.5 (5.0-8.0); PROTEIN,URINE NEGATIVE (NEGATIVE)
[2019-03-10 08:39] LABS: AMPHET/METH SCREEN,URINE POSITIVE (NEGATIVE); BARBITURATE SCREEN, URINE NEGATIVE (NEGATIVE); BENZODIAZEPINES SCREEN,URINE NEGATIVE (NEGATIVE); CANNABINOID SCREEN,URINE NEGATIVE (NEGATIVE); COCAINE SCREEN,URINE NEGATIVE (NEGATIVE); METHADONE SCREEN, URINE NEGATIVE (NEGATIVE); OPIATE SCREEN,URINE NEGATIVE (NEGATIVE)
[2019-03-10 08:40] LABS: PHENCYCLIDINE SCREEN,URINE NEGATIVE (NEGATIVE)
[2019-03-10 08:43] LABS: ALANINE AMINOTRANSFERASE 29 U/L (12-78); ALBUMIN 3.7 g/dL (3.4-5.0); ALKALINE PHOSPHATASE 71 U/L (46-116); ANION GAP 9 mmol/L (8-16); ASPARTATE AMINOTRANSFERASE 22 U/L (15-37); BILIRUBIN,TOTAL 0.7 mg/dL (0.1-1.0); CALCIUM, TOTAL 9.1 mg/dL (8.8-10.5); CARBON DIOXIDE 25 mmol/L (22-29); CHLORIDE 103 mmol/L (98-107); CHOL/HDL RATIO 4.7 (3.9-5.7); CHOLESTEROL 180 mg/dL (131-200); GLOMERULAR FILTR. RATE CALC > 60 mL/min (>60); GLUCOSE,RANDOM 99 mg/dL (70-110); HCG,QUANTITATIVE < 1 mIU/mL (0-6); HDL CHOLESTEROL 38 mg/dL (40-60); LDL CHOL (CALC.) 121 mg/dL (0-130); SODIUM SERUM 137 mmol/L (136-145); TOTAL PROTEIN, SERUM 6.8 g/dL (6.4-8.2); TRIGLYCERIDES 104 mg/dL (15-150); UREA NITROGEN, BLOOD 15 mg/dL (7-18)
[2019-03-10 08:44] LABS: HEMOGLOBIN A1C 5.5 % (4.5-6.2)
[2019-03-10 08:46] VITALS: BP 110/60
[2019-03-10 09:06] LABS: AMORPHOUS SEDIMENT,UR Moderate /LPF (None Seen); BACTERIA,URINE Moderate /HPF (None Seen); RBC,URINE None Seen /HPF (0-2); SQUAMOUS EPITHELIAL CELL,UR Moderate /LPF (None Seen); WBC,URINE 0-2 /HPF (0-5)
[2019-03-10] MEDS: BuPROPion HCL XL 150 MG ER TABLET PO SCH (09:12)
[2019-03-10 16:11] VITALS: BP 103/62
[2019-03-10] MEDS: NITROFURANTOIN/NITROFURAN MAC 100 MG CAPSULE [MACROBID] PO SCH (16:56)
[2019-03-10] MEDS: ZOLPIDEM TARTRATE 10 MG TABLET PO PRN (20:56)
[2019-03-10] MEDS: OLANZapine 5 MG TABLET PO SCH (20:57)
[2019-03-11 06:23] VITALS: BP 108/65
[2019-03-11] MEDS: BuPROPion HCL XL 150 MG ER TABLET PO SCH (08:25)
[2019-03-11] MEDS: NITROFURANTOIN/NITROFURAN MAC 100 MG CAPSULE [MACROBID] PO SCH ×2 (08:25→16:35)
[2019-03-11] MEDS ORDERED: OLANZapine 5 MG RAPDIS TABLET PO PRN (10:30)
[2019-03-11 16:19] VITALS: BP 111/67
[2019-03-11] MEDS: LORazepam 1 MG TABLET PO PRN (16:35)
[2019-03-11] MEDS ORDERED: HALOPERIDOL 5 MG TABLET PO PRN (18:15)
[2019-03-11] MEDS ORDERED: HALOPERIDOL DECANOATE 50 MG/ML VIAL IM ONE (18:15)
[2019-03-11] MEDS ORDERED: HALOPERIDOL 5 MG TABLET PO SCH (21:00)
[2019-03-11] MEDS: HALOPERIDOL 2 MG TABLET PO SCH (21:12)
[2019-03-12 06:43] VITALS: BP 101/61
[2019-03-12] MEDS: NITROFURANTOIN/NITROFURAN MAC 100 MG CAPSULE [MACROBID] PO SCH ×2 (08:20→17:42)
[2019-03-12] MEDS: HALOPERIDOL 2 MG TABLET PO SCH (08:20)
[2019-03-12] MEDS: BENZTROPINE MESYLATE 0.5 MG TABLET PO SCH ×3 (08:21→17:42)
[2019-03-12] MEDS: NALTREXONE HCL 50 MG TABLET PO SCH (08:21)
[2019-03-12] MEDS: FLUoxetine HCL 20 MG CAPSULE PO SCH (08:21)
[2019-03-12 08:38] VITALS: BP 109/54
[2019-03-12] MEDS ORDERED: HALO2 PO (14:54)
[2019-03-12] MEDS ORDERED: HALO50VI4 IM (14:54)
[2019-03-12] MEDS ORDERED: FLUO-191 PO (14:54)
[2019-03-12] MEDS ORDERED: BENZ0.5T44 PO (14:54)
[2019-03-12] MEDS ORDERED: NALT50TA PO (14:55)
[2019-03-12 16:21] VITALS: BP 124/83
[2019-03-12] MEDS: HALOPERIDOL 5 MG TABLET PO SCH (20:23)
[2019-03-13 06:15] VITALS: BP 108/67
[2019-03-13 08:28] VITALS: BP 102/70
[2019-03-13] MEDS: NALTREXONE HCL 50 MG TABLET PO SCH (09:11)
[2019-03-13] MEDS: NITROFURANTOIN/NITROFURAN MAC 100 MG CAPSULE [MACROBID] PO SCH (09:11)
[2019-03-13] MEDS: FLUoxetine HCL 20 MG CAPSULE PO SCH (09:11)
[2019-03-13] MEDS: HALOPERIDOL 5 MG TABLET PO SCH (09:12)
[2019-03-13] MEDS: BENZTROPINE MESYLATE 0.5 MG TABLET PO SCH ×2 (09:12→13:07)
[2019-03-13] MEDS ORDERED: HALO5TAB2 PO (12:38)
[2019-03-13] MEDS ORDERED: NALT50TA6 PO (12:38)
[2019-03-13] MEDS ORDERED: ARIP5TAB8 PO (12:38)
[2019-03-13] MEDS ORDERED: FLUO-191 PO (12:38)
[2019-03-13] MEDS ORDERED: MACR100 PO (12:40)
[2019-03-13] MEDS ORDERED: BENZ0.5T44 PO (12:40)
[2019-03-25] MEDS ORDERED: HALOPERIDOL DECANOATE 50 MG/ML VIAL IM SCH (09:00)
== END 2019-03-13 13:20 | disposition home or self-care (01) | DRG 751 ==
LOC: B3A 17:17
PROVIDERS: ADMIT Psychiatry & Neurology Psychiatry; ATTEND Psychiatry & Neurology Psychiatry
DX: F33.2 Major depressive disorder, recurrent severe without psychotic features (principal); R45.851 Suicidal ideations; G40.909 Epilepsy, unspecified, not intractable, without status epilepticus; E66.9 Obesity, unspecified; E78.5 Hyperlipidemia, unspecified; F15.10 Other stimulant abuse, uncomplicated; F41.9 Anxiety disorder, unspecified; G47.00 Insomnia, unspecified; F17.200 Nicotine dependence, unspecified, uncomplicated; J45.909 Unspecified asthma, uncomplicated; K21.9 Gastro-esophageal reflux disease without esophagitis; N39.0 Urinary tract infection, site not specified; Z68.33 Body mass index [BMI] 33.0-33.9, adult; Z28.21 Immunization not carried out because of patient refusal; Z79.899 Other long term (current) drug therapy; Z88.5 Allergy status to narcotic agent; Z88.2 Allergy status to sulfonamides; Z91.040 Latex allergy status; Z71.51 Drug abuse counseling and surveillance of drug abuser; Z72.89 Other problems related to lifestyle; Z71.6 Tobacco abuse counseling; Z71.41 Alcohol abuse counseling and surveillance of alcoholic; Z91.19 Patient's noncompliance with other medical treatment and regimen
CPT/HCPCS: 83036; 87081; 87086; J1631

== ENCOUNTER 2019-05-02 17:49 | Inpatient (IN) | payer MEDICAID ==
[~2019-05-02] VITALS: Ht 144.8 cm; Wt 70.3 kg
[~2019-05-02 17:49] MED LIST changes: +ARIP5TAB8 PO; +BENZ0.5T44 PO; -BUPR300T53 PO; +FLUO-191 PO; +HALO2 PO; +HALO50VI4 IM; +HALO5TAB2 PO; +MACR100 PO; +NALT50TA PO; +NALT50TA6 PO; -OLAN5TAB27 PO; -SIMV10TA6 PO
[2019-05-02] MEDS ORDERED: ZOLPIDEM TARTRATE 10 MG TABLET PO PRN (19:00)
[2019-05-02] MEDS ORDERED: HALOPERIDOL 5 MG TABLET PO PRN (19:00)
[2019-05-02 20:05] VITALS: BP 123/63
[2019-05-02] MEDS ORDERED: INFLUENZA VIRUS VACCINE QVS 2019-20 (3YR+)/PF 60 MCG/0.5 ML SYRINGE IM ONE (20:45)
[2019-05-02] MEDS ORDERED: DiphenhydrAMINE/ZINC ACET 30 GM CREAM TP PRN (21:00)
[2019-05-02] MEDS ORDERED: GuaiFENesin/D-METHORPHAN [SUGAR-FREE] 200-20MG/10 ML SYRUP UDCUP PO PRN (21:15)
[2019-05-02] MEDS ORDERED: LOPERAMIDE HCL 2 MG CAPSULE PO PRN (21:15)
[2019-05-02] MEDS ORDERED: MAGNESIUM HYDROXIDE SUSPENSION 30 ML UDCUP PO PRN (21:15)
[2019-05-02] MEDS ORDERED: DOCUSATE SODIUM 100 MG CAPSULE PO PRN (21:15)
[2019-05-02] MEDS ORDERED: ACETAMINOPHEN 325 MG TABLET PO PRN (21:15)
[2019-05-02] MEDS ORDERED: PETROLATUM,WHITE 28 GM JELLY TP PRN (21:15)
[2019-05-02] MEDS ORDERED: NICOTINE 14 MG/24 HOUR PATCH TD PRN (21:15)
[2019-05-02] MEDS ORDERED: IBUPROFEN 400 MG TABLET PO PRN (21:15)
[2019-05-02] MEDS ORDERED: ONDANSETRON HCL 4 MG TABLET PO PRN (21:15)
[2019-05-02] MEDS ORDERED: ALBUTEROL SULFATE HFA 90 MCG/PUFF 8 GM INHALER IH PRN (21:15)
[2019-05-02] MEDS ORDERED: MAG HYDROX/AL HYDROX/SIMETH ES 30 ML SUSPENSION UDCUP PO PRN (21:15)
[2019-05-02] MEDS ORDERED: CloNIDine HCL 0.1 MG TABLET PO PRN (21:15)
[2019-05-03 06:51] VITALS: BP 103/68
[2019-05-03] MEDS: LORazepam 2 MG TABLET PO PRN (06:53)
[2019-05-03 08:00] VITALS: BP 108/80
[2019-05-03 08:46] LABS: BASOPHILS % (AUTO) 0.8 % (0.0-2.0); EOSINOPHILS % (AUTO) 1.4 % (1.0-6.0); HEMATOCRIT 43.2 % (36-46); HEMOGLOBIN 14.4 g/dL (12.0-16.0); LYMPHOCYTES # (AUTO) 2.9 K/uL (1.0-4.8); LYMPHOCYTES % (AUTO) 39.1 % (22.0-44.0); MEAN CORPUSCULAR HEMOGLOBIN 28.4 pg (26.0-34.0); MEAN CORPUSCULAR HGB CONC 33.4 G/dL (31.0-37.0); MEAN CORPUSCULAR VOLUME 85 fL (80-100); MONOCYTES # (AUTO) 0.6 K/uL (0.1-1.0); NEUTROPHILS # (AUTO) 3.8 K/uL (1.8-7.7); NEUTROPHILS % (AUTO) 50.7 % (40.0-70.0); PLATELET COUNT (AUTO) 270 K/uL (150-450); RED BLOOD CELL COUNT(AUTO) 5.06 MIL/uL (4.00-5.20); RED CELL DISTRIBUTION WIDTH 14.3 % (11.5-14.5)
[2019-05-03 09:29] LABS: HEMOGLOBIN A1C 5.6 % (4.5-6.2)
[2019-05-03 09:41] LABS: ALANINE AMINOTRANSFERASE 38 U/L (12-78); ALBUMIN 3.5 g/dL (3.4-5.0); ALKALINE PHOSPHATASE 78 U/L (46-116); ANION GAP 9 mmol/L (8-16); ASPARTATE AMINOTRANSFERASE 23 U/L (15-37); BILIRUBIN,TOTAL 0.4 mg/dL (0.1-1.0); CALCIUM, TOTAL 8.5 mg/dL (8.8-10.5); CARBON DIOXIDE 25 mmol/L (22-29); CHLORIDE 104 mmol/L (98-107); CHOL/HDL RATIO 4.6 (3.9-5.7); CHOLESTEROL 192 mg/dL (131-200); CREATININE 0.81 mg/dL (0.60-1.30); FREE T4 (FREE THYROXINE) 0.96 ng/dL (0.76-1.46); GLOMERULAR FILTR. RATE CALC > 60 mL/min (>60); GLUCOSE,RANDOM 91 mg/dL (70-110); HCG,QUANTITATIVE < 1 mIU/mL (0-6); HDL CHOLESTEROL 42 mg/dL (40-60); LDL CHOL (CALC.) 121 mg/dL (0-130); SODIUM SERUM 138 mmol/L (136-145); THYROID STIMULATING HORMONE 2.18 uIU/mL (0.36-3.74); TOTAL PROTEIN, SERUM 7.4 g/dL (6.4-8.2); TRIGLYCERIDES 146 mg/dL (15-150); UREA NITROGEN, BLOOD 21 mg/dL (7-18)
[2019-05-03] MEDS: ARIPiprazole 10 MG TABLET PO SCH (10:16)
[2019-05-03] MEDS: BENZTROPINE MESYLATE 0.5 MG TABLET PO SCH ×2 (10:16→17:00)
[2019-05-03 16:12] VITALS: BP 118/70
[2019-05-03] MEDS: FLUoxetine HCL 20 MG CAPSULE PO SCH (17:00)
[2019-05-04 06:33] VITALS: BP 115/59
[2019-05-04] MEDS: ARIPiprazole 10 MG TABLET PO SCH (08:38)
[2019-05-04] MEDS: FLUoxetine HCL 20 MG CAPSULE PO SCH ×2 (08:39→17:02)
[2019-05-04] MEDS: BENZTROPINE MESYLATE 0.5 MG TABLET PO SCH ×2 (08:39→17:02)
[2019-05-04 16:37] VITALS: BP 118/55
[2019-05-05 06:27] VITALS: BP 120/72
[2019-05-05] MEDS: ARIPiprazole 10 MG TABLET PO SCH (08:19)
[2019-05-05] MEDS: FLUoxetine HCL 20 MG CAPSULE PO SCH ×2 (08:19→16:17)
[2019-05-05] MEDS: BENZTROPINE MESYLATE 0.5 MG TABLET PO SCH ×2 (08:19→16:17)
[2019-05-05 08:27] VITALS: BP 111/74
[2019-05-05 16:26] VITALS: BP 122/66
[2019-05-05] MEDS: LORazepam 2 MG TABLET PO PRN (17:08)
[2019-05-06 06:26] VITALS: BP 134/79
[2019-05-06 08:16] VITALS: BP 128/79
[2019-05-06] MEDS: FLUoxetine HCL 20 MG CAPSULE PO SCH ×2 (08:32→16:00)
[2019-05-06] MEDS: BENZTROPINE MESYLATE 0.5 MG TABLET PO SCH ×2 (08:32→16:00)
[2019-05-06] MEDS: ARIPiprazole 10 MG TABLET PO SCH (08:33)
[2019-05-06 16:14] VITALS: BP 116/68
[2019-05-06] MEDS: LORazepam 2 MG TABLET PO PRN (17:09)
[2019-05-07] MEDS ORDERED: BENZ0.5T44 PO ×2 (04:14→04:43)
[2019-05-07] MEDS ORDERED: FLUO20CA30 PO (04:43)
[2019-05-07] MEDS ORDERED: ARIP10TA8 PO (04:44)
[2019-05-07 05:10] VITALS: BP 110/68
== END 2019-05-07 07:21 | disposition home or self-care (01) | DRG 750 ==
LOC: B3A 19:24
PROVIDERS: ADMIT Psychiatry & Neurology Psychiatry; ATTEND Psychiatry & Neurology Psychiatry
DX: F25.9 Schizoaffective disorder, unspecified (principal); R45.851 Suicidal ideations; G40.909 Epilepsy, unspecified, not intractable, without status epilepticus; K21.9 Gastro-esophageal reflux disease without esophagitis; Z28.21 Immunization not carried out because of patient refusal; J45.909 Unspecified asthma, uncomplicated; Z91.040 Latex allergy status; F41.9 Anxiety disorder, unspecified; E78.5 Hyperlipidemia, unspecified; E66.9 Obesity, unspecified; Z68.33 Body mass index [BMI] 33.0-33.9, adult; F17.200 Nicotine dependence, unspecified, uncomplicated; F15.90 Other stimulant use, unspecified, uncomplicated; F32.9 Major depressive disorder, single episode, unspecified; Z59.0 Homelessness; Z91.5 Personal history of self-harm; F12.90 Cannabis use, unspecified, uncomplicated; F10.10 Alcohol abuse, uncomplicated; G47.00 Insomnia, unspecified
CPT/HCPCS: 83036; 84439; 84443

== ENCOUNTER 2020-03-08 08:28 | Inpatient (IN) | payer MEDICAID, MEDICARE ==
[~2020-03-08] VITALS: Ht 152.4 cm; Wt 60.4 kg
[~2020-03-08 08:28] MED LIST changes: +ARIP10TA8 PO; -ARIP5TAB8 PO; -FLUO-191 PO; +FLUO20CA30 PO; -HALO2 PO; -HALO50VI4 IM; -HALO5TAB2 PO; -MACR100 PO; -NALT50TA PO; -NALT50TA6 PO
[2020-03-08 09:33] LABS: BASOPHILS % (AUTO) 0.5 % (0.0-2.0); EOSINOPHILS % (AUTO) 1.3 % (1.0-6.0); HEMATOCRIT 34.9 % (36-46); HEMOGLOBIN 11.4 g/dL (12.0-16.0); LYMPHOCYTES % (AUTO) 33.2 % (22.0-44.0); MEAN CORPUSCULAR HEMOGLOBIN 25.3 pg (26.0-34.0); MEAN CORPUSCULAR HGB CONC 32.7 G/dL (31.0-37.0); MEAN CORPUSCULAR VOLUME 77 fL (80-100); MONOCYTES # (AUTO) 0.4 K/uL (0.1-1.0); MONOCYTES % (AUTO) 7.4 % (2.0-9.0); NEUTROPHILS # (AUTO) 3.5 K/uL (1.8-7.7); NEUTROPHILS % (AUTO) 57.6 % (40.0-70.0); PLATELET COUNT (AUTO) 289 K/uL (150-450); RED BLOOD CELL COUNT(AUTO) 4.51 MIL/uL (4.00-5.20); RED CELL DISTRIBUTION WIDTH 16.7 % (11.5-14.5)
[2020-03-08 09:41] LABS: ANION GAP 6 mmol/L (8-16); CALCIUM, TOTAL 8.5 mg/dL (8.8-10.5); CARBON DIOXIDE 26 mmol/L (22-29); CHLORIDE 105 mmol/L (98-107); CREATININE 0.85 mg/dL (0.60-1.30); GLOMERULAR FILTR. RATE CALC > 60 mL/min (>60); GLUCOSE,RANDOM 105 mg/dL (70-110); POTASSIUM 3.4 mmol/L (3.5-5.1); SODIUM SERUM 137 mmol/L (136-145); UREA NITROGEN, BLOOD 16 mg/dL (7-18)
[2020-03-08 09:48] LABS: ALANINE AMINOTRANSFERASE 25 U/L (12-78); ALBUMIN 3.5 g/dL (3.4-5.0); ALKALINE PHOSPHATASE 90 U/L (46-116); ASPARTATE AMINOTRANSFERASE 22 U/L (15-37); BILIRUBIN,TOTAL 0.4 mg/dL (0.1-1.0)
[2020-03-08 10:09] LABS: AMPHET/METH SCREEN,URINE POSITIVE (NEGATIVE); BARBITURATE SCREEN, URINE NEGATIVE (NEGATIVE); BENZODIAZEPINES SCREEN,URINE NEGATIVE (NEGATIVE); CANNABINOID SCREEN,URINE NEGATIVE (NEGATIVE); COCAINE SCREEN,URINE NEGATIVE (NEGATIVE); METHADONE SCREEN, URINE NEGATIVE (NEGATIVE); OPIATE SCREEN,URINE NEGATIVE (NEGATIVE)
[2020-03-08 10:15] LABS: PHENCYCLIDINE SCREEN,URINE NEGATIVE (NEGATIVE)
[2020-03-08] MEDS ORDERED: HALOPERIDOL 5 MG TABLET PO PRN (23:30)
[2020-03-08] MEDS ORDERED: ZOLPIDEM TARTRATE 10 MG TABLET PO PRN (23:30)
[2020-03-09 00:15] VITALS: BP 119/72
[2020-03-09] MEDS ORDERED: PNEUMOCOCCAL VACCINE POLYVALENT 0.5 ML VIAL [PPSV23] IM ONE (01:00)
[2020-03-09 04:13] LABS: APPEARANCE,URINE CLOUDY (CLEAR); BILIRUBIN,URINE NEGATIVE (NEGATIVE); GLUCOSE, URINE (UA) NEGATIVE (NEGATIVE); KETONES,URINE NEGATIVE (NEGATIVE); LEUKOCYTE ESTERASE ,URINE NEGATIVE (NEGATIVE); NITRATE,URINE NEGATIVE (NEGATIVE); OCCULT BLOOD,URINE TRACE (NEGATIVE); PH,URINE 7.5 (5.0-8.0); PROTEIN,URINE NEGATIVE (NEGATIVE); UROBILINOGEN,URINE 0.2 mg/dL (<=1.0)
[2020-03-09 04:20] LABS: BACTERIA,URINE Few /HPF (None Seen); RBC,URINE 0-2 /HPF (0-2); SQUAMOUS EPITHELIAL CELL,UR Many /LPF (None Seen)
[2020-03-09 07:55] LABS: CHOL/HDL RATIO 4.5 (3.9-5.7)
[2020-03-09] MEDS ORDERED: DOCUSATE SODIUM 100 MG CAPSULE PO PRN (08:15)
[2020-03-09] MEDS ORDERED: POTASSIUM CHLORIDE 20 MEQ ER TABLET PO ONE (08:15)
[2020-03-09] MEDS ORDERED: MAG HYDROX/AL HYDROX/SIMETH ES 30 ML SUSPENSION UDCUP PO PRN (08:15)
[2020-03-09] MEDS ORDERED: MAGNESIUM HYDROXIDE SUSPENSION 30 ML UDCUP PO PRN (08:15)
[2020-03-09] MEDS ORDERED: BENZOCAINE/MENTHOL LOZENGE PO PRN (08:15)
[2020-03-09] MEDS ORDERED: BACITRACIN 28 GM OINTMENT TP PRN (08:15)
[2020-03-09] MEDS ORDERED: ALBUTEROL SULFATE HFA 90 MCG/PUFF 8 GM INHALER IH PRN (08:15)
[2020-03-09] MEDS ORDERED: LOPERAMIDE HCL 2 MG CAPSULE PO PRN (08:15)
[2020-03-09] MEDS ORDERED: PETROLATUM,WHITE 28 GM JELLY TP PRN (08:15)
[2020-03-09] MEDS ORDERED: IBUPROFEN 600 MG TABLET PO PRN (08:15)
[2020-03-09] MEDS ORDERED: OMEPRAZOLE 20 MG CAPSULE PO PRN (08:15)
[2020-03-09] MEDS ORDERED: CloNIDine HCL 0.1 MG TABLET PO PRN (08:15)
[2020-03-09] MEDS ORDERED: ONDANSETRON HCL 4 MG TABLET PO PRN (08:15)
[2020-03-09 08:27] VITALS: BP 108/63
[2020-03-09] MEDS: OMEGA-3/DHA/EPA/FISH OIL 1,000 MG CAPSULE PO SCH (09:06)
[2020-03-09 16:06] VITALS: BP 124/72
[2020-03-09] MEDS: FERROUS SULFATE 325 MG EC TABLET PO SCH (16:37)
[2020-03-09 18:29] VITALS: BP 118/73
[2020-03-09] MEDS: ACETAMINOPHEN 325 MG TABLET PO PRN (18:29)
[2020-03-10] MEDS: FERROUS SULFATE 325 MG EC TABLET PO SCH ×2 (06:31→16:16)
[2020-03-10] MEDS: RisperiDONE 1 MG TABLET PO SCH ×4 (08:35→16:16)
[2020-03-10] MEDS: OMEGA-3/DHA/EPA/FISH OIL 1,000 MG CAPSULE PO SCH ×3 (08:35→12:10)
[2020-03-10 09:33] VITALS: BP 131/80
[2020-03-10 16:03] VITALS: BP 102/63
[2020-03-10] MEDS: LORazepam 2 MG TABLET PO PRN (19:03)
[2020-03-11] MEDS: FERROUS SULFATE 325 MG EC TABLET PO SCH ×2 (06:35→16:58)
[2020-03-11] MEDS: OMEGA-3/DHA/EPA/FISH OIL 1,000 MG CAPSULE PO SCH (07:49)
[2020-03-11] MEDS: RisperiDONE 1 MG TABLET PO SCH ×2 (07:49→16:58)
[2020-03-11 08:25] VITALS: BP 109/66
[2020-03-11 16:04] VITALS: BP 100/58
[2020-03-12] MEDS: FERROUS SULFATE 325 MG EC TABLET PO SCH ×2 (06:32→16:06)
[2020-03-12] MEDS: OMEGA-3/DHA/EPA/FISH OIL 1,000 MG CAPSULE PO SCH (08:40)
[2020-03-12] MEDS: RisperiDONE 1 MG TABLET PO SCH ×2 (08:40→16:06)
[2020-03-12 09:21] VITALS: BP 128/73
[2020-03-12 16:11] VITALS: BP 117/78
[2020-03-12] MEDS: ACETAMINOPHEN 325 MG TABLET PO PRN (16:11)
[2020-03-12] MEDS: LORazepam 2 MG TABLET PO PRN (17:36)
[2020-03-12] MEDS ORDERED: RISP1TAB89 PO (19:44)
[2020-03-13] MEDS: FERROUS SULFATE 325 MG EC TABLET PO SCH (06:32)
[2020-03-13 08:33] VITALS: BP 109/68
[2020-03-13] MEDS: OMEGA-3/DHA/EPA/FISH OIL 1,000 MG CAPSULE PO SCH (09:53)
[2020-03-13] MEDS: RisperiDONE 1 MG TABLET PO SCH (09:53)
[2020-03-13] MEDS: LORazepam 2 MG TABLET PO PRN (09:55)
== END 2020-03-13 11:15 | disposition home or self-care (01) | DRG 750 ==
LOC: EMS 08:28 → 3EC 23:26
PROVIDERS: ADMIT Psychiatry & Neurology Psychiatry; ATTEND Psychiatry & Neurology Psychiatry
DX: F25.9 Schizoaffective disorder, unspecified (principal); E78.5 Hyperlipidemia, unspecified; F31.9 Bipolar disorder, unspecified; J45.909 Unspecified asthma, uncomplicated; R45.851 Suicidal ideations; F17.210 Nicotine dependence, cigarettes, uncomplicated; F41.9 Anxiety disorder, unspecified; M54.30 Sciatica, unspecified side; E87.6 Hypokalemia; I10 Essential (primary) hypertension; E78.00 Pure hypercholesterolemia, unspecified; F19.10 Other psychoactive substance abuse, uncomplicated; K59.00 Constipation, unspecified; Z88.5 Allergy status to narcotic agent; Z88.2 Allergy status to sulfonamides; Z91.040 Latex allergy status
CPT/HCPCS: 84132; 87081; 87426; 90732; G0480

== ENCOUNTER 2020-03-15 19:12 | Inpatient (IN) | payer MEDICAID ==
[~2020-03-15] VITALS: Ht 144.8 cm; Wt 58.8 kg
[~2020-03-15 19:12] MED LIST changes: -ARIP10TA8 PO; -BENZ0.5T44 PO; -FLUO20CA30 PO; +RISP1TAB89 PO
[2020-03-15 20:10] LABS: EOSINOPHILS % (AUTO) 1.1 % (1.0-6.0); HEMATOCRIT 39.8 % (36-46); LYMPHOCYTES # (AUTO) 2.1 K/uL (1.0-4.8); LYMPHOCYTES % (AUTO) 31.7 % (22.0-44.0); MEAN CORPUSCULAR HEMOGLOBIN 25.3 pg (26.0-34.0); MEAN CORPUSCULAR HGB CONC 32.7 G/dL (31.0-37.0); MEAN CORPUSCULAR VOLUME 78 fL (80-100); MONOCYTES # (AUTO) 0.5 K/uL (0.1-1.0); MONOCYTES % (AUTO) 7.9 % (2.0-9.0); NEUTROPHILS # (AUTO) 3.9 K/uL (1.8-7.7); NEUTROPHILS % (AUTO) 58.3 % (40.0-70.0); PLATELET COUNT (AUTO) 334 K/uL (150-450); RED BLOOD CELL COUNT(AUTO) 5.14 MIL/uL (4.00-5.20); RED CELL DISTRIBUTION WIDTH 17.4 % (11.5-14.5)
[2020-03-15 20:23] LABS: ANION GAP 9 mmol/L (8-16); CALCIUM, TOTAL 9.6 mg/dL (8.8-10.5); CARBON DIOXIDE 26 mmol/L (22-29); CHLORIDE 104 mmol/L (98-107); GLOMERULAR FILTR. RATE CALC > 60 mL/min (>60); GLUCOSE,RANDOM 94 mg/dL (70-110); POTASSIUM 3.5 mmol/L (3.5-5.1); SODIUM SERUM 139 mmol/L (136-145); UREA NITROGEN, BLOOD 19 mg/dL (7-18)
[2020-03-15 20:35] LABS: ALANINE AMINOTRANSFERASE 29 U/L (12-78); ALBUMIN 4.3 g/dL (3.4-5.0); ALKALINE PHOSPHATASE 116 U/L (46-116); ASPARTATE AMINOTRANSFERASE 24 U/L (15-37); BILIRUBIN,TOTAL 0.8 mg/dL (0.1-1.0); HCG,QUANTITATIVE 1 mIU/mL (0-6); TOTAL PROTEIN, SERUM 8.4 g/dL (6.4-8.2)
[2020-03-15] MEDS ORDERED: HALOPERIDOL LACTATE 5 MG/ML VIAL IM ONE (21:15)
[2020-03-15] MEDS ORDERED: LORazepam 2 MG/ML VIAL IM ONE (21:15)
[2020-03-15] MEDS ORDERED: DiphenhydrAMINE HCL 50 MG/ML VIAL IM ONE (21:15)
[2020-03-15 23:26] LABS: COVID AG,FIA SOURCE NASAL SWAB
[2020-03-16] MEDS ORDERED: ZOLPIDEM TARTRATE 10 MG TABLET PO PRN (00:45)
[2020-03-16] MEDS ORDERED: HALOPERIDOL 5 MG TABLET PO PRN (00:45)
[2020-03-16 13:23] VITALS: BP 101/64
[2020-03-16 13:40] VITALS: BP 101/64
[2020-03-16] MEDS ORDERED: -PHARMACY VACCINE NOTE- MISC ONE (13:45)
[2020-03-16 16:21] VITALS: BP 106/60
[2020-03-16] MEDS ORDERED: INFLUENZA VIRUS VACCINE QVS 2020-21 (6MO+)/PF 60 MCG/0.5 ML SYRINGE IM ONE (18:15)
[2020-03-16] MEDS: LORazepam 2 MG TABLET PO PRN (20:24)
[2020-03-17 05:35] VITALS: BP 123/72
[2020-03-17] MEDS ORDERED: CloNIDine HCL 0.1 MG TABLET PO PRN (07:45)
[2020-03-17] MEDS ORDERED: LOPERAMIDE HCL 2 MG CAPSULE PO PRN (07:45)
[2020-03-17] MEDS ORDERED: BENZOCAINE/MENTHOL LOZENGE PO PRN (07:45)
[2020-03-17] MEDS ORDERED: BACITRACIN 28 GM OINTMENT TP PRN (07:45)
[2020-03-17] MEDS ORDERED: PETROLATUM,WHITE 28 GM JELLY TP PRN (07:45)
[2020-03-17] MEDS ORDERED: DOCUSATE SODIUM 100 MG CAPSULE PO PRN (07:45)
[2020-03-17] MEDS ORDERED: MAGNESIUM HYDROXIDE SUSPENSION 30 ML UDCUP PO PRN (07:45)
[2020-03-17] MEDS ORDERED: ACETAMINOPHEN 325 MG TABLET PO PRN (07:45)
[2020-03-17] MEDS ORDERED: ONDANSETRON HCL 4 MG TABLET PO PRN (07:45)
[2020-03-17] MEDS ORDERED: OMEPRAZOLE 20 MG CAPSULE PO PRN (07:45)
[2020-03-17] MEDS ORDERED: MAG HYDROX/AL HYDROX/SIMETH ES 30 ML SUSPENSION UDCUP PO PRN (07:45)
[2020-03-17] MEDS ORDERED: ALBUTEROL SULFATE HFA 90 MCG/PUFF 8 GM INHALER IH PRN (07:45)
[2020-03-17 08:18] LABS: CHOL/HDL RATIO 7.1 (3.9-5.7)
[2020-03-17] MEDS: RisperiDONE 1 MG TABLET PO SCH ×2 (08:26→16:20)
[2020-03-17 09:52] VITALS: BP 107/66
[2020-03-17 16:29] VITALS: BP 107/64
[2020-03-18 00:05] VITALS: BP 105/63
[2020-03-18 08:15] VITALS: BP 112/68
[2020-03-18] MEDS: OMEGA-3/DHA/EPA/FISH OIL 1,000 MG CAPSULE PO SCH (08:28)
[2020-03-18] MEDS: RisperiDONE 1 MG TABLET PO SCH ×2 (08:28→16:11)
[2020-03-18] MEDS: DIVALPROEX SODIUM 500 MG DR TABLET PO SCH ×2 (08:29→16:11)
[2020-03-18 16:18] VITALS: BP 134/60
[2020-03-18] MEDS: LORazepam 2 MG TABLET PO PRN (17:29)
[2020-03-19 08:43] VITALS: BP 119/73
[2020-03-19] MEDS: DIVALPROEX SODIUM 500 MG DR TABLET PO SCH ×3 (09:00→17:05)
[2020-03-19] MEDS: OMEGA-3/DHA/EPA/FISH OIL 1,000 MG CAPSULE PO SCH (09:32)
[2020-03-19] MEDS: RisperiDONE 1 MG TABLET PO SCH ×2 (09:32→17:05)
[2020-03-19 16:11] VITALS: BP 108/68
[2020-03-19] MEDS: LORazepam 2 MG TABLET PO PRN (17:05)
[2020-03-20 06:38] VITALS: BP 105/68
[2020-03-20] MEDS: OMEGA-3/DHA/EPA/FISH OIL 1,000 MG CAPSULE PO SCH (08:09)
[2020-03-20] MEDS: DIVALPROEX SODIUM 500 MG DR TABLET PO SCH ×2 (08:09→16:02)
[2020-03-20] MEDS: RisperiDONE 1 MG TABLET PO SCH ×2 (08:09→16:02)
[2020-03-20 09:04] VITALS: BP 106/43
[2020-03-20 16:07] VITALS: BP 100/61
[2020-03-20 19:57] VITALS: BP 115/65
[2020-03-20] MEDS: LORazepam 2 MG TABLET PO PRN (19:57)
[2020-03-21 00:37] VITALS: BP 112/71
[2020-03-21 08:55] VITALS: BP 115/70
[2020-03-21] MEDS: DIVALPROEX SODIUM 500 MG DR TABLET PO SCH ×2 (09:00→16:28)
[2020-03-21] MEDS: OMEGA-3/DHA/EPA/FISH OIL 1,000 MG CAPSULE PO SCH (09:00)
[2020-03-21] MEDS: RisperiDONE 1 MG TABLET PO SCH ×2 (09:00→16:28)
[2020-03-21 16:15] VITALS: BP 116/78
[2020-03-22 01:36] VITALS: BP 114/68
[2020-03-22 05:01] VITALS: BP 108/64
[2020-03-22] MEDS: IBUPROFEN 600 MG TABLET PO PRN (05:01)
[2020-03-22] MEDS ORDERED: DIVA-112 PO (08:14)
[2020-03-22] MEDS ORDERED: RISP1TAB27 PO (08:14)
[2020-03-22] MEDS: OMEGA-3/DHA/EPA/FISH OIL 1,000 MG CAPSULE PO SCH (09:15)
[2020-03-22] MEDS: RisperiDONE 1 MG TABLET PO SCH ×2 (09:15→17:01)
[2020-03-22] MEDS: DIVALPROEX SODIUM 500 MG DR TABLET PO SCH ×2 (09:15→17:01)
[2020-03-22 09:41] VITALS: BP 117/63
[2020-03-22 16:36] VITALS: BP 125/80
[2020-03-23 00:18] VITALS: BP 102/68
[2020-03-23] MEDS: IBUPROFEN 600 MG TABLET PO PRN (00:24)
[2020-03-23 08:27] VITALS: BP 110/62
[2020-03-23] MEDS: OMEGA-3/DHA/EPA/FISH OIL 1,000 MG CAPSULE PO SCH (08:35)
[2020-03-23] MEDS: DIVALPROEX SODIUM 500 MG DR TABLET PO SCH (08:35)
[2020-03-23] MEDS: RisperiDONE 1 MG TABLET PO SCH (08:35)
== END 2020-03-23 12:35 | disposition home or self-care (01) | DRG 750 ==
LOC: EMS 19:12 → B2S 03-16 09:14
PROVIDERS: ADMIT Psychiatry & Neurology Psychiatry; ATTEND Psychiatry & Neurology Psychiatry
DX: F20.0 Paranoid schizophrenia (principal); R45.851 Suicidal ideations; F19.10 Other psychoactive substance abuse, uncomplicated; Z59.0 Homelessness; F32.9 Major depressive disorder, single episode, unspecified; F41.9 Anxiety disorder, unspecified; Z87.440 Personal history of urinary (tract) infections; E78.5 Hyperlipidemia, unspecified; F10.10 Alcohol abuse, uncomplicated; Y90.9 Presence of alcohol in blood, level not specified; J45.909 Unspecified asthma, uncomplicated; M54.30 Sciatica, unspecified side; I10 Essential (primary) hypertension; E78.00 Pure hypercholesterolemia, unspecified; G47.00 Insomnia, unspecified; K59.00 Constipation, unspecified; F15.10 Other stimulant abuse, uncomplicated; Z91.040 Latex allergy status; Z88.2 Allergy status to sulfonamides; Z88.6 Allergy status to analgesic agent; F17.210 Nicotine dependence, cigarettes, uncomplicated; Z20.828 Contact with and (suspected) exposure to other viral communicable diseases; Z28.21 Immunization not carried out because of patient refusal
CPT/HCPCS: 87081; 87426; G0480; J1200; J1630; J2060

== ENCOUNTER 2020-03-25 05:00 | Inpatient (IN) | payer MEDICAID ==
[~2020-03-25] VITALS: Ht 144.8 cm; Wt 59.0 kg
[~2020-03-25 05:00] MED LIST changes: +DIVA-112 PO; +RISP1TAB27 PO; -RISP1TAB89 PO
[2020-03-25] MEDS ORDERED: ZOLPIDEM TARTRATE 10 MG TABLET PO PRN (07:00)
[2020-03-25] MEDS ORDERED: HALOPERIDOL 5 MG TABLET PO PRN (07:00)
[2020-03-25] MEDS: LORazepam 2 MG TABLET PO PRN (13:06)
[2020-03-25] MEDS ORDERED: INFLUENZA VIRUS VACCINE QVS 2020-21 (6MO+)/PF 60 MCG/0.5 ML SYRINGE IM ONE (16:00)
[2020-03-25] MEDS ORDERED: CloNIDine HCL 0.1 MG TABLET PO PRN (23:30)
[2020-03-25] MEDS ORDERED: LOPERAMIDE HCL 2 MG CAPSULE PO PRN (23:30)
[2020-03-25] MEDS ORDERED: MAGNESIUM HYDROXIDE SUSPENSION 30 ML UDCUP PO PRN (23:30)
[2020-03-25] MEDS ORDERED: MAG HYDROX/AL HYDROX/SIMETH ES 30 ML SUSPENSION UDCUP PO PRN (23:30)
[2020-03-25] MEDS ORDERED: ALBUTEROL SULFATE HFA 90 MCG/PUFF 8 GM INHALER IH PRN (23:30)
[2020-03-25] MEDS ORDERED: IBUPROFEN 600 MG TABLET PO PRN (23:30)
[2020-03-25] MEDS ORDERED: PETROLATUM,WHITE 28 GM JELLY TP PRN (23:30)
[2020-03-25] MEDS ORDERED: BENZOCAINE/MENTHOL LOZENGE PO PRN (23:30)
[2020-03-25] MEDS ORDERED: OMEPRAZOLE 20 MG CAPSULE PO PRN (23:30)
[2020-03-25] MEDS ORDERED: DOCUSATE SODIUM 100 MG CAPSULE PO PRN (23:30)
[2020-03-25] MEDS ORDERED: BACITRACIN 28 GM OINTMENT TP PRN (23:30)
[2020-03-25] MEDS ORDERED: ACETAMINOPHEN 325 MG TABLET PO PRN (23:30)
[2020-03-25] MEDS ORDERED: ONDANSETRON HCL 4 MG TABLET PO PRN (23:30)
[2020-03-26 00:26] VITALS: BP 110/68
[2020-03-26] MEDS: LORazepam 2 MG TABLET PO PRN ×2 (00:36→20:40)
[2020-03-26] MEDS: NICOTINE 21 MG/24 HOUR PATCH TD SCH (08:05)
[2020-03-26 08:29] VITALS: BP 100/56
[2020-03-26 16:48] VITALS: BP 121/68
[2020-03-27 01:20] VITALS: BP 102/63
[2020-03-27] MEDS: OMEGA-3/DHA/EPA/FISH OIL 1,000 MG CAPSULE PO SCH (09:18)
[2020-03-27] MEDS: NICOTINE 21 MG/24 HOUR PATCH TD SCH (09:19)
[2020-03-27 12:31] VITALS: BP 118/85
[2020-03-27] MEDS: DIVALPROEX SODIUM 500 MG DR TABLET PO SCH (16:40)
[2020-03-27] MEDS: LORazepam 2 MG TABLET PO PRN (16:41)
[2020-03-27] MEDS ORDERED: RisperiDONE 1 MG TABLET PO SCH (17:00)
[2020-03-27 17:40] VITALS: BP 121/67
[2020-03-27] MEDS: SIMVASTATIN 10 MG TABLET PO SCH (20:50)
[2020-03-28 02:22] VITALS: BP 107/62
[2020-03-28] MEDS: OMEGA-3/DHA/EPA/FISH OIL 1,000 MG CAPSULE PO SCH (08:28)
[2020-03-28] MEDS: DIVALPROEX SODIUM 500 MG DR TABLET PO SCH ×2 (08:28→17:07)
[2020-03-28] MEDS: RisperiDONE 2 MG TABLET PO SCH ×2 (08:28→17:07)
[2020-03-28] MEDS: NICOTINE 21 MG/24 HOUR PATCH TD SCH ×2 (08:29→08:36)
[2020-03-28 10:44] VITALS: BP 115/68
[2020-03-28 16:26] VITALS: BP 112/72
[2020-03-28] MEDS: SIMVASTATIN 10 MG TABLET PO SCH (20:05)
[2020-03-28] MEDS: LORazepam 2 MG TABLET PO PRN (20:05)
[2020-03-29 03:04] VITALS: BP 109/66
[2020-03-29 08:56] VITALS: BP 109/68
[2020-03-29] MEDS: NICOTINE 21 MG/24 HOUR PATCH TD SCH (09:00)
[2020-03-29] MEDS: DIVALPROEX SODIUM 500 MG DR TABLET PO SCH ×2 (09:20→16:50)
[2020-03-29] MEDS: OMEGA-3/DHA/EPA/FISH OIL 1,000 MG CAPSULE PO SCH (09:20)
[2020-03-29] MEDS: RisperiDONE 2 MG TABLET PO SCH ×2 (09:20→16:50)
[2020-03-29 16:27] VITALS: BP 107/69
[2020-03-29] MEDS: SIMVASTATIN 10 MG TABLET PO SCH (20:14)
[2020-03-30 00:32] VITALS: BP 114/61
[2020-03-30] MEDS: DIVALPROEX SODIUM 500 MG DR TABLET PO SCH ×2 (08:19→16:34)
[2020-03-30] MEDS: OMEGA-3/DHA/EPA/FISH OIL 1,000 MG CAPSULE PO SCH (08:19)
[2020-03-30] MEDS: RisperiDONE 2 MG TABLET PO SCH ×2 (08:19→16:34)
[2020-03-30 08:39] VITALS: BP 110/60
[2020-03-30] MEDS: NICOTINE 21 MG/24 HOUR PATCH TD SCH (09:00)
[2020-03-30] MEDS ORDERED: RISP2TAB23 PO (13:51)
[2020-03-30] MEDS ORDERED: SIMV-259 PO (13:51)
== END 2020-03-30 18:49 | disposition home or self-care (01) | DRG 750 ==
LOC: B2S 05:00
PROVIDERS: ADMIT Psychiatry & Neurology Psychiatry; ATTEND Psychiatry & Neurology Psychiatry
DX: F25.9 Schizoaffective disorder, unspecified (principal); E78.5 Hyperlipidemia, unspecified; J45.909 Unspecified asthma, uncomplicated; Z59.0 Homelessness; Z87.891 Personal history of nicotine dependence; Z79.899 Other long term (current) drug therapy; F41.9 Anxiety disorder, unspecified; F32.9 Major depressive disorder, single episode, unspecified; M54.30 Sciatica, unspecified side; Z23 Encounter for immunization; Z03.818 Encounter for observation for suspected exposure to other biological agents ruled out
CPT/HCPCS: 87081; 90686; G0008; Z7610

== ENCOUNTER 2020-03-25 07:18 | Emergency (ER) | payer MEDICAID ==
[~2020-03-25] VITALS: Ht 154.9 cm; Wt 65.9 kg
[2020-03-25 07:50] LABS: COVID AG,FIA SOURCE NASOPHARYNGEAL
[2020-03-25 07:54] LABS: BASOPHILS % (AUTO) 0.7 % (0.0-2.0); HEMATOCRIT 41.1 % (36-46); HEMOGLOBIN 13.3 g/dL (12.0-16.0); LYMPHOCYTES # (AUTO) 1.9 K/uL (1.0-4.8); LYMPHOCYTES % (AUTO) 32.3 % (22.0-44.0); MEAN CORPUSCULAR HEMOGLOBIN 25.3 pg (26.0-34.0); MEAN CORPUSCULAR HGB CONC 32.4 G/dL (31.0-37.0); MEAN CORPUSCULAR VOLUME 78 fL (80-100); MONOCYTES # (AUTO) 0.5 K/uL (0.1-1.0); MONOCYTES % (AUTO) 8.8 % (2.0-9.0); NEUTROPHILS # (AUTO) 3.4 K/uL (1.8-7.7); NEUTROPHILS % (AUTO) 57.2 % (40.0-70.0); PLATELET COUNT (AUTO) 258 K/uL (150-450); RED BLOOD CELL COUNT(AUTO) 5.28 MIL/uL (4.00-5.20); RED CELL DISTRIBUTION WIDTH 17.1 % (11.5-14.5)
[2020-03-25 08:05] LABS: ANION GAP 10 mmol/L (8-16); CALCIUM, TOTAL 9.3 mg/dL (8.8-10.5); CARBON DIOXIDE 29 mmol/L (22-29); CHLORIDE 103 mmol/L (98-107); CREATININE 0.95 mg/dL (0.60-1.30); GLOMERULAR FILTR. RATE CALC > 60 mL/min (>60); GLUCOSE,RANDOM 93 mg/dL (70-110); POTASSIUM 3.7 mmol/L (3.5-5.1); SODIUM SERUM 142 mmol/L (136-145); UREA NITROGEN, BLOOD 15 mg/dL (7-18)
[2020-03-25 08:10] LABS: ALANINE AMINOTRANSFERASE 39 U/L (12-78); ALBUMIN 4.2 g/dL (3.4-5.0); ALKALINE PHOSPHATASE 92 U/L (46-116); ASPARTATE AMINOTRANSFERASE 29 U/L (15-37); BILIRUBIN,TOTAL 0.7 mg/dL (0.1-1.0); VALPROIC ACID 16 mcg/mL (50-100)
[2020-03-25 09:35] VITALS: BP 126/89
== END 2020-03-25 10:19 | disposition home or self-care (01) ==
LOC: EMS 07:19
DX: F25.9 Schizoaffective disorder, unspecified (principal); Z20.828 Contact with and (suspected) exposure to other viral communicable diseases
CPT/HCPCS: 36415; 80053; 80164; 85025; 87426; 99284; G0480

== ENCOUNTER 2020-04-03 17:51 | Emergency (ER) | payer MEDICAID ==
[~2020-04-03] VITALS: Ht 144.8 cm; Wt 56.8 kg
[~2020-04-03 17:51] MED LIST changes: -RISP1TAB27 PO; +RISP2TAB23 PO; +SIMV-259 PO
[2020-04-03 18:58] VITALS: BP 117/73
== END 2020-04-03 19:18 | disposition home or self-care (01) ==
LOC: EMS 17:51
DX: F41.9 Anxiety disorder, unspecified (principal); R45.1 Restlessness and agitation; J45.909 Unspecified asthma, uncomplicated; F31.9 Bipolar disorder, unspecified; F20.9 Schizophrenia, unspecified; F17.210 Nicotine dependence, cigarettes, uncomplicated; F19.90 Other psychoactive substance use, unspecified, uncomplicated; Z88.1 Allergy status to other antibiotic agents; Z91.040 Latex allergy status
CPT/HCPCS: 99283; Z7502

== ENCOUNTER 2020-04-20 03:09 | Inpatient (IN) | payer MEDICAID ==
[~2020-04-20] VITALS: Ht 144.8 cm; Wt 58.2 kg
[~2020-04-20 03:09] MED LIST changes: -RISP2TAB23 PO; +RISP2TAB45 PO
[2020-04-20 04:23] LABS: BASOPHILS % (AUTO) 0.5 % (0.0-2.0); EOSINOPHILS % (AUTO) 0.6 % (1.0-6.0); HEMATOCRIT 37.8 % (36-46); HEMOGLOBIN 12.5 g/dL (12.0-16.0); LYMPHOCYTES # (AUTO) 2.6 K/uL (1.0-4.8); LYMPHOCYTES % (AUTO) 30.2 % (22.0-44.0); MEAN CORPUSCULAR HEMOGLOBIN 25.7 pg (26.0-34.0); MEAN CORPUSCULAR VOLUME 78 fL (80-100); MONOCYTES # (AUTO) 0.7 K/uL (0.1-1.0); MONOCYTES % (AUTO) 8.4 % (2.0-9.0); NEUTROPHILS # (AUTO) 5.2 K/uL (1.8-7.7); NEUTROPHILS % (AUTO) 60.3 % (40.0-70.0); PLATELET COUNT (AUTO) 281 K/uL (150-450); RED BLOOD CELL COUNT(AUTO) 4.85 MIL/uL (4.00-5.20); RED CELL DISTRIBUTION WIDTH 16.6 % (11.5-14.5)
[2020-04-20 04:31] LABS: ANION GAP 13 mmol/L (8-16); CALCIUM, TOTAL 9.3 mg/dL (8.8-10.5); CARBON DIOXIDE 28 mmol/L (22-29); CHLORIDE 102 mmol/L (98-107); CREATININE 0.95 mg/dL (0.60-1.30); GLOMERULAR FILTR. RATE CALC > 60 mL/min (>60); GLUCOSE,RANDOM 99 mg/dL (70-110); POTASSIUM 3.9 mmol/L (3.5-5.1); SODIUM SERUM 143 mmol/L (136-145); UREA NITROGEN, BLOOD 16 mg/dL (7-18)
[2020-04-20 04:37] LABS: ALANINE AMINOTRANSFERASE 34 U/L (12-78); ALBUMIN 3.9 g/dL (3.4-5.0); ALKALINE PHOSPHATASE 76 U/L (46-116); ASPARTATE AMINOTRANSFERASE 23 U/L (15-37); BILIRUBIN,TOTAL 0.4 mg/dL (0.1-1.0)
[2020-04-20 04:58] LABS: HCG,QUANTITATIVE < 1 mIU/mL (0-6); VALPROIC ACID 5 mcg/mL (50-100)
[2020-04-20] MEDS ORDERED: LORazepam 2 MG TABLET PO ONE (05:15)
[2020-04-20 06:02] LABS: COVID AG,FIA SOURCE NASOPHARYNGEAL
[2020-04-20 06:12] LABS: AMPHET/METH SCREEN,URINE POSITIVE (NEGATIVE); BARBITURATE SCREEN, URINE NEGATIVE (NEGATIVE); BENZODIAZEPINES SCREEN,URINE NEGATIVE (NEGATIVE); CANNABINOID SCREEN,URINE NEGATIVE (NEGATIVE); COCAINE SCREEN,URINE NEGATIVE (NEGATIVE); METHADONE SCREEN, URINE NEGATIVE (NEGATIVE); OPIATE SCREEN,URINE NEGATIVE (NEGATIVE)
[2020-04-20] MEDS ORDERED: ZOLPIDEM TARTRATE 10 MG TABLET PO PRN (06:15)
[2020-04-20] MEDS ORDERED: HALOPERIDOL 5 MG TABLET PO PRN (06:15)
[2020-04-20 06:21] LABS: PHENCYCLIDINE SCREEN,URINE NEGATIVE (NEGATIVE)
[2020-04-20 12:33] VITALS: BP 116/68
[2020-04-20 16:28] VITALS: BP 114/67
[2020-04-20] MEDS: LORazepam 2 MG TABLET PO PRN (17:44)
[2020-04-20] MEDS ORDERED: CALCIUM CARBONATE 500 MG CHEWABLE TABLET CHEW PRN (18:30)
[2020-04-20] MEDS: DIVALPROEX SODIUM 500 MG DR TABLET PO SCH (20:23)
[2020-04-20] MEDS: RisperiDONE 2 MG TABLET PO SCH (20:23)
[2020-04-21 01:16] VITALS: BP 100/65
[2020-04-21 06:42] LABS: CHOL/HDL RATIO 6.1 (3.9-5.7)
[2020-04-21] MEDS ORDERED: BENZOCAINE/MENTHOL LOZENGE PO PRN (07:15)
[2020-04-21] MEDS ORDERED: CloNIDine HCL 0.1 MG TABLET PO PRN (07:15)
[2020-04-21] MEDS ORDERED: IBUPROFEN 600 MG TABLET PO PRN (07:15)
[2020-04-21] MEDS ORDERED: MAGNESIUM HYDROXIDE SUSPENSION 30 ML UDCUP PO PRN (07:15)
[2020-04-21] MEDS ORDERED: PETROLATUM,WHITE 28 GM JELLY TP PRN (07:15)
[2020-04-21] MEDS ORDERED: ALBUTEROL SULFATE HFA 90 MCG/PUFF 8 GM INHALER IH PRN (07:15)
[2020-04-21] MEDS ORDERED: OMEPRAZOLE 20 MG CAPSULE PO PRN (07:15)
[2020-04-21] MEDS ORDERED: ONDANSETRON HCL 4 MG TABLET PO PRN (07:15)
[2020-04-21] MEDS ORDERED: LOPERAMIDE HCL 2 MG CAPSULE PO PRN (07:15)
[2020-04-21] MEDS ORDERED: BACITRACIN 28 GM OINTMENT TP PRN (07:15)
[2020-04-21] MEDS ORDERED: ACETAMINOPHEN 325 MG TABLET PO PRN (07:15)
[2020-04-21] MEDS ORDERED: MAG HYDROX/AL HYDROX/SIMETH ES 30 ML SUSPENSION UDCUP PO PRN (07:15)
[2020-04-21] MEDS ORDERED: DOCUSATE SODIUM 100 MG CAPSULE PO PRN (07:15)
[2020-04-21] MEDS: RisperiDONE 2 MG TABLET PO SCH ×2 (09:35→16:53)
[2020-04-21] MEDS: DIVALPROEX SODIUM 500 MG DR TABLET PO SCH ×2 (09:35→16:53)
[2020-04-21] MEDS: OMEGA-3/DHA/EPA/FISH OIL 1,000 MG CAPSULE PO SCH (09:35)
[2020-04-22 01:55] VITALS: BP 119/65
[2020-04-22] MEDS: DIVALPROEX SODIUM 500 MG DR TABLET PO SCH ×2 (09:57→16:36)
[2020-04-22] MEDS: RisperiDONE 2 MG TABLET PO SCH ×2 (09:57→16:36)
[2020-04-22] MEDS: OMEGA-3/DHA/EPA/FISH OIL 1,000 MG CAPSULE PO SCH (09:57)
[2020-04-22 10:05] VITALS: BP 100/58
[2020-04-22 16:00] VITALS: BP 99/61
[2020-04-22] MEDS: LORazepam 2 MG TABLET PO PRN (17:31)
[2020-04-23] MEDS: OMEGA-3/DHA/EPA/FISH OIL 1,000 MG CAPSULE PO SCH (09:19)
[2020-04-23] MEDS: DIVALPROEX SODIUM 500 MG DR TABLET PO SCH (09:19)
[2020-04-23] MEDS: RisperiDONE 2 MG TABLET PO SCH (09:19)
[2020-04-23] MEDS ORDERED: OMEG-135 PO (11:59)
== END 2020-04-23 13:30 | disposition home or self-care (01) | DRG 750 ==
LOC: EMS 03:09 → 3EI 11:22
PROVIDERS: ADMIT Psychiatry & Neurology Psychiatry; ATTEND Psychiatry & Neurology Psychiatry
DX: F25.9 Schizoaffective disorder, unspecified (principal); F17.210 Nicotine dependence, cigarettes, uncomplicated; J45.909 Unspecified asthma, uncomplicated; R45.851 Suicidal ideations; F41.9 Anxiety disorder, unspecified; E78.5 Hyperlipidemia, unspecified; F10.10 Alcohol abuse, uncomplicated; I10 Essential (primary) hypertension; E78.00 Pure hypercholesterolemia, unspecified; G47.00 Insomnia, unspecified; K59.00 Constipation, unspecified; M54.30 Sciatica, unspecified side; Z88.5 Allergy status to narcotic agent; Z88.2 Allergy status to sulfonamides; Z88.8 Allergy status to other drugs, medicaments and biological substances; Z20.828 Contact with and (suspected) exposure to other viral communicable diseases
CPT/HCPCS: 87426; G0480

== ENCOUNTER 2020-07-20 20:32 | Inpatient (IN) | payer MEDICAID ==
[~2020-07-20] VITALS: Ht 142.2 cm; Wt 53.8 kg
[~2020-07-20 20:32] MED LIST changes: +OMEG-135 PO; -SIMV-259 PO
[2020-07-20 23:31] LABS: BASOPHILS % (AUTO) 0.4 % (0.0-2.0); HEMATOCRIT 40.5 % (36-46); HEMOGLOBIN 13.2 g/dL (12.0-16.0); LYMPHOCYTES # (AUTO) 2.1 K/uL (1.0-4.8); LYMPHOCYTES % (AUTO) 20.2 % (22.0-44.0); MEAN CORPUSCULAR HEMOGLOBIN 26.4 pg (26.0-34.0); MEAN CORPUSCULAR HGB CONC 32.5 G/dL (31.0-37.0); MEAN CORPUSCULAR VOLUME 81 fL (80-100); MONOCYTES # (AUTO) 0.3 K/uL (0.1-1.0); MONOCYTES % (AUTO) 3.1 % (2.0-9.0); NEUTROPHILS # (AUTO) 7.8 K/uL (1.8-7.7); NEUTROPHILS % (AUTO) 75.3 % (40.0-70.0); PLATELET COUNT (AUTO) 275 K/uL (150-450); RED BLOOD CELL COUNT(AUTO) 4.99 MIL/uL (4.00-5.20); RED CELL DISTRIBUTION WIDTH 16.1 % (11.5-14.5)
[2020-07-20 23:52] LABS: ANION GAP 12 mmol/L (8-16); CARBON DIOXIDE 22 mmol/L (22-29); CHLORIDE 102 mmol/L (98-107); CREATININE 0.75 mg/dL (0.60-1.30); GLOMERULAR FILTR. RATE CALC > 60 mL/min (>60); GLUCOSE,RANDOM 103 mg/dL (70-110); POTASSIUM 3.5 mmol/L (3.5-5.1); SODIUM SERUM 136 mmol/L (136-145); UREA NITROGEN, BLOOD 13 mg/dL (7-18)
[2020-07-20 23:57] LABS: ALANINE AMINOTRANSFERASE 26 U/L (12-78); ALBUMIN 3.7 g/dL (3.4-5.0); ALKALINE PHOSPHATASE 76 U/L (46-116); ASPARTATE AMINOTRANSFERASE 17 U/L (15-37); BILIRUBIN,TOTAL 0.8 mg/dL (0.1-1.0); TOTAL PROTEIN, SERUM 7.7 g/dL (6.4-8.2)
[2020-07-21 03:13] LABS: HCG,QUANTITATIVE < 1 mIU/mL (0-6)
[2020-07-21] MEDS ORDERED: ZOLPIDEM TARTRATE 10 MG TABLET PO PRN (03:30)
[2020-07-21] MEDS ORDERED: HALOPERIDOL 5 MG TABLET PO PRN (03:30)
[2020-07-21] MEDS ORDERED: LORazepam 1 MG TABLET PO ONE (05:00)
[2020-07-21] MEDS: HALOPERIDOL 5 MG TABLET PO ONE ×2 (05:00→05:06)
[2020-07-21] MEDS ORDERED: DiphenhydrAMINE HCL 25 MG CAPSULE PO ONE (05:00)
[2020-07-21] MEDS: LORazepam 2 MG TABLET PO PRN (05:06)
[2020-07-21 05:13] LABS: COVID AG,FIA SOURCE NASOPHARYNGEAL
[2020-07-21 05:27] LABS: ACETAMINOPHEN < 2 mcg/mL (10-30); VALPROIC ACID < 3 mcg/mL (50-100)
[2020-07-21 05:37] LABS: APPEARANCE,URINE CLOUDY (CLEAR); BILIRUBIN,URINE NEGATIVE (NEGATIVE); GLUCOSE, URINE (UA) NEGATIVE (NEGATIVE); KETONES,URINE NEGATIVE (NEGATIVE); LEUKOCYTE ESTERASE ,URINE SMALL (NEGATIVE); NITRATE,URINE NEGATIVE (NEGATIVE); OCCULT BLOOD,URINE LARGE (NEGATIVE); PROTEIN,URINE NEGATIVE (NEGATIVE)
[2020-07-21 06:09] LABS: BACTERIA,URINE Few /HPF (None Seen); RBC,URINE 0-2 /HPF (0-2)
[2020-07-21 06:10] LABS: SQUAMOUS EPITHELIAL CELL,UR Moderate /LPF (None Seen)
[2020-07-21 06:25] LABS: AMPHET/METH SCREEN,URINE POSITIVE (NEGATIVE); BARBITURATE SCREEN, URINE NEGATIVE (NEGATIVE); BENZODIAZEPINES SCREEN,URINE NEGATIVE (NEGATIVE); CANNABINOID SCREEN,URINE POSITIVE (NEGATIVE); COCAINE SCREEN,URINE NEGATIVE (NEGATIVE); METHADONE SCREEN, URINE NEGATIVE (NEGATIVE); OPIATE SCREEN,URINE NEGATIVE (NEGATIVE)
[2020-07-21 06:31] LABS: PHENCYCLIDINE SCREEN,URINE NEGATIVE (NEGATIVE)
[2020-07-21 10:30] VITALS: BP 101/63
[2020-07-21] MEDS ORDERED: MAGNESIUM HYDROXIDE SUSPENSION 30 ML UDCUP PO PRN (15:15)
[2020-07-21] MEDS ORDERED: BENZOCAINE/MENTHOL LOZENGE PO PRN (15:15)
[2020-07-21] MEDS ORDERED: MAG HYDROX/AL HYDROX/SIMETH ES 30 ML SUSPENSION UDCUP PO PRN (15:15)
[2020-07-21] MEDS ORDERED: ALBUTEROL SULFATE HFA 90 MCG/PUFF 8 GM INHALER IH PRN (15:15)
[2020-07-21] MEDS ORDERED: ACETAMINOPHEN 325 MG TABLET PO PRN (15:15)
[2020-07-21] MEDS ORDERED: IBUPROFEN 600 MG TABLET PO PRN (15:15)
[2020-07-21] MEDS ORDERED: ONDANSETRON HCL 4 MG TABLET PO PRN (15:15)
[2020-07-21] MEDS ORDERED: OMEPRAZOLE 20 MG CAPSULE PO PRN (15:15)
[2020-07-21] MEDS ORDERED: BACITRACIN 28 GM OINTMENT TP PRN (15:15)
[2020-07-21] MEDS ORDERED: CloNIDine HCL 0.1 MG TABLET PO PRN (15:15)
[2020-07-21] MEDS ORDERED: LOPERAMIDE HCL 2 MG CAPSULE PO PRN (15:15)
[2020-07-21] MEDS ORDERED: PETROLATUM,WHITE 28 GM JELLY TP PRN (15:15)
[2020-07-21 16:11] VITALS: BP 100/92
[2020-07-21] MEDS: DOCUSATE SODIUM 100 MG CAPSULE PO PRN ×2 (18:20→23:44)
[2020-07-22 01:25] VITALS: BP 110/78
[2020-07-22 08:10] VITALS: BP 121/79
[2020-07-22 08:54] LABS: CHOL/HDL RATIO 4.8 (3.9-5.7); THYROID STIMULATING HORMONE 0.55 uIU/mL (0.36-3.74)
[2020-07-22] MEDS: RisperiDONE 2 MG TABLET PO SCH ×2 (10:00→16:33)
[2020-07-22] MEDS: LORazepam 2 MG TABLET PO PRN (10:00)
[2020-07-22] MEDS: DIVALPROEX SODIUM 500 MG DR TABLET PO SCH ×2 (10:00→16:33)
[2020-07-22] MEDS: OMEGA-3/DHA/EPA/FISH OIL 1,000 MG CAPSULE PO SCH (10:00)
[2020-07-22 17:19] VITALS: BP 119/78
[2020-07-23 04:21] VITALS: BP 118/78
[2020-07-23 08:12] VITALS: BP 118/74
[2020-07-23] MEDS: DIVALPROEX SODIUM 500 MG DR TABLET PO SCH ×2 (08:21→16:40)
[2020-07-23] MEDS: OMEGA-3/DHA/EPA/FISH OIL 1,000 MG CAPSULE PO SCH (08:21)
[2020-07-23] MEDS: RisperiDONE 2 MG TABLET PO SCH ×2 (08:21→16:41)
[2020-07-23] MEDS: LORazepam 2 MG TABLET PO PRN (08:28)
[2020-07-23] MEDS: NITROFURANTOIN/NITROFURAN MAC 100 MG CAPSULE [MACROBID] PO SCH ×2 (09:34→16:40)
[2020-07-23 16:15] VITALS: BP 100/60
[2020-07-24 00:05] VITALS: BP 106/78
[2020-07-24] MEDS: RisperiDONE 2 MG TABLET PO SCH ×2 (08:15→18:04)
[2020-07-24] MEDS: OMEGA-3/DHA/EPA/FISH OIL 1,000 MG CAPSULE PO SCH (08:15)
[2020-07-24] MEDS: CIPROFLOXACIN HCL 250 MG TABLET PO SCH ×2 (08:15→18:04)
[2020-07-24] MEDS: DIVALPROEX SODIUM 500 MG DR TABLET PO SCH ×2 (08:15→18:04)
[2020-07-24 08:33] VITALS: BP 121/76
[2020-07-24] MEDS ORDERED: DiphenhydrAMINE HCL 50 MG/ML VIAL ONE (13:26)
[2020-07-24] MEDS ORDERED: DiphenhydrAMINE HCL 50 MG/ML VIAL IM ONE (13:45)
[2020-07-24 16:12] VITALS: BP 124/75
[2020-07-25 00:16] VITALS: BP_SYST 120; BP_DIAS 72; BP_DIAS 80
[2020-07-25] MEDS: OMEGA-3/DHA/EPA/FISH OIL 1,000 MG CAPSULE PO SCH (08:33)
[2020-07-25] MEDS: DIVALPROEX SODIUM 500 MG DR TABLET PO SCH ×2 (08:33→16:23)
[2020-07-25] MEDS: CIPROFLOXACIN HCL 250 MG TABLET PO SCH ×2 (08:33→16:23)
[2020-07-25] MEDS: LORazepam 2 MG TABLET PO PRN (08:33)
[2020-07-25] MEDS: RisperiDONE 2 MG TABLET PO SCH ×2 (08:33→16:23)
[2020-07-25 08:37] VITALS: BP 100/58
[2020-07-25 16:12] VITALS: BP 112/70
[2020-07-26 00:17] VITALS: BP 110/73
[2020-07-26 08:15] VITALS: BP 118/79
[2020-07-26] MEDS: DIVALPROEX SODIUM 500 MG DR TABLET PO SCH (10:07)
[2020-07-26] MEDS: OMEGA-3/DHA/EPA/FISH OIL 1,000 MG CAPSULE PO SCH (10:07)
[2020-07-26] MEDS: CIPROFLOXACIN HCL 250 MG TABLET PO SCH (10:07)
[2020-07-26] MEDS: RisperiDONE 2 MG TABLET PO SCH (10:07)
[2020-07-26] MEDS ORDERED: CIPR250T6 PO (12:38)
== END 2020-07-26 14:40 | disposition home or self-care (01) | DRG 750 ==
LOC: EMS 20:32 → B3A 07-21 09:06
PROVIDERS: ATTEND Psychiatry & Neurology Psychiatry
DX: F25.9 Schizoaffective disorder, unspecified (principal); J45.909 Unspecified asthma, uncomplicated; E78.5 Hyperlipidemia, unspecified; F15.10 Other stimulant abuse, uncomplicated; F31.9 Bipolar disorder, unspecified; N39.0 Urinary tract infection, site not specified; R45.851 Suicidal ideations; Z59.9 Problem related to housing and economic circumstances, unspecified; Z87.891 Personal history of nicotine dependence; Z20.822 Contact with and (suspected) exposure to COVID-19
CPT/HCPCS: 84439; 84443; 87086; 87426; 99285; G0480; G0481; J1200

== ENCOUNTER 2020-09-27 04:10 | Emergency (ER) | payer MEDICAID ==
[~2020-09-27] VITALS: Ht 144.8 cm; Wt 53.0 kg
[~2020-09-27 04:10] MED LIST changes: +CIPR250T6 PO; -OMEG-135 PO
[2020-09-27 06:35] LABS: BASOPHILS % (AUTO) 0.6 % (0.0-2.0); HEMATOCRIT 42.7 % (36-46); HEMOGLOBIN 13.9 g/dL (12.0-16.0); LYMPHOCYTES # (AUTO) 3.5 K/uL (1.0-4.8); LYMPHOCYTES % (AUTO) 47.7 % (22.0-44.0); MEAN CORPUSCULAR HEMOGLOBIN 26.2 pg (26.0-34.0); MEAN CORPUSCULAR HGB CONC 32.5 G/dL (31.0-37.0); MEAN CORPUSCULAR VOLUME 80 fL (80-100); MONOCYTES # (AUTO) 0.5 K/uL (0.1-1.0); MONOCYTES % (AUTO) 6.8 % (2.0-9.0); NEUTROPHILS # (AUTO) 3.2 K/uL (1.8-7.7); NEUTROPHILS % (AUTO) 43.9 % (40.0-70.0); PLATELET COUNT (AUTO) 329 K/uL (150-450); RED BLOOD CELL COUNT(AUTO) 5.31 MIL/uL (4.00-5.20); RED CELL DISTRIBUTION WIDTH 16.5 % (11.5-14.5)
[2020-09-27 06:50] LABS: ANION GAP 11 mmol/L (8-16); CALCIUM, TOTAL 8.9 mg/dL (8.8-10.5); CARBON DIOXIDE 28 mmol/L (22-29); CHLORIDE 102 mmol/L (98-107); CREATININE 0.85 mg/dL (0.60-1.30); GLOMERULAR FILTR. RATE CALC > 60 mL/min (>60); GLUCOSE,RANDOM 99 mg/dL (70-110); SODIUM SERUM 141 mmol/L (136-145); UREA NITROGEN, BLOOD 20 mg/dL (7-18)
[2020-09-27 06:55] LABS: ALANINE AMINOTRANSFERASE 24 U/L (12-78); ALBUMIN 4.2 g/dL (3.4-5.0); ALKALINE PHOSPHATASE 76 U/L (46-116); ASPARTATE AMINOTRANSFERASE 10 U/L (15-37); BILIRUBIN,TOTAL 0.3 mg/dL (0.1-1.0); TOTAL PROTEIN, SERUM 8.3 g/dL (6.4-8.2)
[2020-09-27 06:56] LABS: VALPROIC ACID < 3 mcg/mL (50-100)
[2020-09-27 12:00] VITALS: BP 131/81
== END 2020-09-27 12:25 | disposition home or self-care (01) ==
LOC: EMS 04:18
DX: F25.9 Schizoaffective disorder, unspecified (principal); J45.909 Unspecified asthma, uncomplicated; F31.9 Bipolar disorder, unspecified; F17.210 Nicotine dependence, cigarettes, uncomplicated; F12.90 Cannabis use, unspecified, uncomplicated; F19.90 Other psychoactive substance use, unspecified, uncomplicated; Z88.5 Allergy status to narcotic agent; Z88.1 Allergy status to other antibiotic agents; Z91.040 Latex allergy status
CPT/HCPCS: 36415; 80053; 80164; 85025; 99285; G0480

== ENCOUNTER 2020-11-07 10:19 | Emergency (ER) | payer MEDICAID ==
[~2020-11-07] VITALS: Ht 144.8 cm; Wt 65.9 kg
[2020-11-07 10:32] VITALS: BP 138/87
[2020-11-07] MEDS ORDERED: SEIZURE PO (10:39)
[2020-11-07 10:52] LABS: BASOPHILS % (AUTO) 0.6 % (0.0-2.0); HEMATOCRIT 40.1 % (36-46); HEMOGLOBIN 13.4 g/dL (12.0-16.0); LYMPHOCYTES # (AUTO) 2.4 K/uL (1.0-4.8); LYMPHOCYTES % (AUTO) 36.2 % (22.0-44.0); MEAN CORPUSCULAR HEMOGLOBIN 27.2 pg (26.0-34.0); MEAN CORPUSCULAR HGB CONC 33.5 G/dL (31.0-37.0); MEAN CORPUSCULAR VOLUME 81 fL (80-100); MONOCYTES # (AUTO) 0.6 K/uL (0.1-1.0); MONOCYTES % (AUTO) 8.8 % (2.0-9.0); NEUTROPHILS # (AUTO) 3.6 K/uL (1.8-7.7); NEUTROPHILS % (AUTO) 53.4 % (40.0-70.0); PLATELET COUNT (AUTO) 276 K/uL (150-450); RED BLOOD CELL COUNT(AUTO) 4.93 MIL/uL (4.00-5.20); RED CELL DISTRIBUTION WIDTH 15.8 % (11.5-14.5)
[2020-11-07 11:10] LABS: ANION GAP 11 mmol/L (8-16); CALCIUM, TOTAL 9.1 mg/dL (8.8-10.5); CARBON DIOXIDE 27 mmol/L (22-29); CHLORIDE 104 mmol/L (98-107); CREATININE 1.04 mg/dL (0.60-1.30); GLOMERULAR FILTR. RATE CALC > 60 mL/min (>60); GLUCOSE,RANDOM 98 mg/dL (70-110); POTASSIUM 3.5 mmol/L (3.5-5.1); SODIUM SERUM 142 mmol/L (136-145); UREA NITROGEN, BLOOD 18 mg/dL (7-18)
[2020-11-07 11:26] LABS: ALANINE AMINOTRANSFERASE 25 U/L (12-78); ALBUMIN 4.2 g/dL (3.4-5.0); ALKALINE PHOSPHATASE 78 U/L (46-116); ASPARTATE AMINOTRANSFERASE 14 U/L (15-37); BILIRUBIN,TOTAL 0.4 mg/dL (0.1-1.0); HCG,QUANTITATIVE < 1 mIU/mL (0-6); TOTAL PROTEIN, SERUM 7.6 g/dL (6.4-8.2)
[2020-11-07 11:27] LABS: VALPROIC ACID < 3 mcg/mL (50-100)
[2020-11-07 12:12] LABS: COVID AG,FIA SOURCE NASOPHARYNGEAL
== END 2020-11-07 13:36 | disposition home or self-care (01) ==
LOC: EMS 10:25
DX: F31.9 Bipolar disorder, unspecified (principal); J45.909 Unspecified asthma, uncomplicated; F20.9 Schizophrenia, unspecified; F17.210 Nicotine dependence, cigarettes, uncomplicated; F12.90 Cannabis use, unspecified, uncomplicated; F19.90 Other psychoactive substance use, unspecified, uncomplicated; Z20.822 Contact with and (suspected) exposure to COVID-19; Z88.5 Allergy status to narcotic agent; Z88.2 Allergy status to sulfonamides; Z91.040 Latex allergy status
CPT/HCPCS: 36415; 80053; 80164; 84702; 85025; 87426; 99285; G0480

== ENCOUNTER 2020-11-07 15:06 | Emergency (ER) | payer MEDICAID ==
[~2020-11-07] VITALS: Ht 154.9 cm; Wt 77.3 kg
[~2020-11-07 15:06] MED LIST changes: +SEIZURE PO
[2020-11-07] MEDS ORDERED: LORazepam 1 MG TABLET PO ONE (17:30)
[2020-11-07 18:10] VITALS: BP 112/71
== END 2020-11-07 18:28 | disposition home or self-care (01) ==
LOC: EMS 15:06
DX: F25.9 Schizoaffective disorder, unspecified (principal); F15.10 Other stimulant abuse, uncomplicated; F32.9 Major depressive disorder, single episode, unspecified; R45.851 Suicidal ideations; J45.909 Unspecified asthma, uncomplicated; F17.210 Nicotine dependence, cigarettes, uncomplicated; F12.90 Cannabis use, unspecified, uncomplicated; F19.90 Other psychoactive substance use, unspecified, uncomplicated; Z88.5 Allergy status to narcotic agent; Z88.1 Allergy status to other antibiotic agents; Z91.040 Latex allergy status
CPT/HCPCS: 99285; Z7502; Z7610

== ENCOUNTER 2020-12-16 23:46 | Emergency (ER) | payer MEDICAID ==
[~2020-12-16] VITALS: Ht 144.8 cm; Wt 57.8 kg
[~2020-12-16 23:46] MED LIST changes: -CIPR250T6 PO
[2020-12-17] MEDS ORDERED: LORazepam 0.5 MG TABLET PO ONE
[2020-12-17] MEDS ORDERED: ACETAMINOPHEN 500 MG TABLET PO ONE
[2020-12-17 00:30] LABS: BASOPHILS % (AUTO) 0.5 % (0.0-2.0); EOSINOPHILS % (AUTO) 0.8 % (1.0-6.0); HEMATOCRIT 41.1 % (36-46); HEMOGLOBIN 13.4 g/dL (12.0-16.0); LYMPHOCYTES # (AUTO) 2.2 K/uL (1.0-4.8); LYMPHOCYTES % (AUTO) 29.6 % (22.0-44.0); MEAN CORPUSCULAR HEMOGLOBIN 26.9 pg (26.0-34.0); MEAN CORPUSCULAR HGB CONC 32.7 G/dL (31.0-37.0); MEAN CORPUSCULAR VOLUME 82 fL (80-100); MONOCYTES # (AUTO) 0.6 K/uL (0.1-1.0); MONOCYTES % (AUTO) 7.4 % (2.0-9.0); NEUTROPHILS # (AUTO) 4.6 K/uL (1.8-7.7); NEUTROPHILS % (AUTO) 61.7 % (40.0-70.0); PLATELET COUNT (AUTO) 272 K/uL (150-450); RED BLOOD CELL COUNT(AUTO) 4.99 MIL/uL (4.00-5.20); RED CELL DISTRIBUTION WIDTH 14.3 % (11.5-14.5)
[2020-12-17 00:39] LABS: ANION GAP 7 mmol/L (8-16); CARBON DIOXIDE 27 mmol/L (22-29); CHLORIDE 105 mmol/L (98-107); CREATININE 0.69 mg/dL (0.60-1.30); GLOMERULAR FILTR. RATE CALC > 60 mL/min (>60); GLUCOSE,RANDOM 94 mg/dL (70-110); POTASSIUM 3.7 mmol/L (3.5-5.1); SODIUM SERUM 139 mmol/L (136-145); UREA NITROGEN, BLOOD 16 mg/dL (7-18)
[2020-12-17 00:53] LABS: ALANINE AMINOTRANSFERASE 24 U/L (12-78); ALBUMIN 3.7 g/dL (3.4-5.0); ALKALINE PHOSPHATASE 81 U/L (46-116); ASPARTATE AMINOTRANSFERASE 15 U/L (15-37); BILIRUBIN,TOTAL 0.4 mg/dL (0.1-1.0); HCG,QUANTITATIVE 1 mIU/mL (0-6); TOTAL PROTEIN, SERUM 7.2 g/dL (6.4-8.2)
[2020-12-17 11:27] VITALS: BP 116/70
== END 2020-12-17 03:31 | disposition home or self-care (01) ==
LOC: EMS 23:47
DX: S09.90XA Unspecified injury of head, initial encounter (principal); H61.22 Impacted cerumen, left ear; J45.909 Unspecified asthma, uncomplicated; F31.9 Bipolar disorder, unspecified; F20.9 Schizophrenia, unspecified; F17.210 Nicotine dependence, cigarettes, uncomplicated; F12.90 Cannabis use, unspecified, uncomplicated; F19.90 Other psychoactive substance use, unspecified, uncomplicated; Z88.5 Allergy status to narcotic agent; Z88.2 Allergy status to sulfonamides; Z91.040 Latex allergy status; Y04.2XXA Assault by strike against or bumped into by another person, initial encounter; Y93.89 Activity, other specified; Y92.89 Other specified places as the place of occurrence of the external cause; Y99.8 Other external cause status
CPT/HCPCS: 36415; 70450; 70486; 72125; 80053; 84702; 85025; 99285; G0480

== ENCOUNTER 2021-01-28 22:40 | Inpatient (IN) | payer MEDICAID ==
[~2021-01-28] VITALS: Ht 152.4 cm; Wt 58.3 kg
[2021-01-29] MEDS ORDERED: LORazepam 2 MG TABLET PO PRN (02:15)
[2021-01-29] MEDS ORDERED: ZOLPIDEM TARTRATE 10 MG TABLET PO PRN (02:15)
[2021-01-29] MEDS ORDERED: HALOPERIDOL 5 MG TABLET PO PRN (02:15)
[2021-01-29 02:25] LABS: EOSINOPHILS % (AUTO) 1.4 % (1.0-6.0); HEMATOCRIT 38.9 % (36-46); HEMOGLOBIN 12.8 g/dL (12.0-16.0); LYMPHOCYTES # (AUTO) 3.7 K/uL (1.0-4.8); LYMPHOCYTES % (AUTO) 38.8 % (22.0-44.0); MEAN CORPUSCULAR HEMOGLOBIN 27.2 pg (26.0-34.0); MEAN CORPUSCULAR HGB CONC 32.9 G/dL (31.0-37.0); MEAN CORPUSCULAR VOLUME 83 fL (80-100); MONOCYTES # (AUTO) 0.7 K/uL (0.1-1.0); NEUTROPHILS % (AUTO) 51.8 % (40.0-70.0); PLATELET COUNT (AUTO) 289 K/uL (150-450); RED CELL DISTRIBUTION WIDTH 13.9 % (11.5-14.5)
[2021-01-29 02:33] LABS: ANION GAP 14 mmol/L (8-16); CALCIUM, TOTAL 8.5 mg/dL (8.8-10.5); CARBON DIOXIDE 26 mmol/L (22-29); CHLORIDE 103 mmol/L (98-107); CREATININE 0.72 mg/dL (0.60-1.30); GLOMERULAR FILTR. RATE CALC > 60 mL/min (>60); GLUCOSE,RANDOM 139 mg/dL (70-110); POTASSIUM 3.2 mmol/L (3.5-5.1); SODIUM SERUM 143 mmol/L (136-145); UREA NITROGEN, BLOOD 20 mg/dL (7-18)
[2021-01-29 02:38] LABS: COVID AG,FIA SOURCE NASOPHARYNGEAL
[2021-01-29 02:40] LABS: ALANINE AMINOTRANSFERASE 40 U/L (12-78); ALBUMIN 3.6 g/dL (3.4-5.0); ALKALINE PHOSPHATASE 77 U/L (46-116); ASPARTATE AMINOTRANSFERASE 18 U/L (15-37); BILIRUBIN,TOTAL 0.2 mg/dL (0.1-1.0)
[2021-01-29 02:48] LABS: ACETAMINOPHEN < 2 mcg/mL (10-30); VALPROIC ACID < 3 mcg/mL (50-100)
[2021-01-29 02:51] LABS: APPEARANCE,URINE CLOUDY (CLEAR); BILIRUBIN,URINE NEGATIVE (NEGATIVE); GLUCOSE, URINE (UA) 100 mg/dL (NEGATIVE); KETONES,URINE NEGATIVE (NEGATIVE); LEUKOCYTE ESTERASE ,URINE NEGATIVE (NEGATIVE); NITRATE,URINE NEGATIVE (NEGATIVE); OCCULT BLOOD,URINE MODERATE (NEGATIVE); PH,URINE 5.5 (5.0-8.0); PROTEIN,URINE NEGATIVE (NEGATIVE); UROBILINOGEN,URINE 0.2 mg/dL (<=1.0)
[2021-01-29 02:55] LABS: AMPHET/METH SCREEN,URINE POSITIVE (NEGATIVE); BARBITURATE SCREEN, URINE NEGATIVE (NEGATIVE); BENZODIAZEPINES SCREEN,URINE NEGATIVE (NEGATIVE); CANNABINOID SCREEN,URINE NEGATIVE (NEGATIVE); COCAINE SCREEN,URINE NEGATIVE (NEGATIVE); METHADONE SCREEN, URINE NEGATIVE (NEGATIVE); OPIATE SCREEN,URINE NEGATIVE (NEGATIVE); PHENCYCLIDINE SCREEN,URINE NEGATIVE (NEGATIVE)
[2021-01-29] MEDS ORDERED: POTASSIUM CHLORIDE 20 MEQ ER TABLET PO ONE (03:00)
[2021-01-29 03:01] LABS: SQUAMOUS EPITHELIAL CELL,UR Many /LPF (None Seen)
[2021-01-29 03:03] LABS: BACTERIA,URINE Few /HPF (None Seen)
[2021-01-29 03:30] LABS: SALICYLATE < 2.8 mg/dL (2.8-20.0)
[2021-01-29] MEDS ORDERED: ALBUTEROL SULFATE HFA 90 MCG/PUFF 8 GM INHALER IH PRN (10:30)
[2021-01-29] MEDS ORDERED: MAGNESIUM HYDROXIDE SUSPENSION 30 ML UDCUP PO PRN (10:30)
[2021-01-29] MEDS ORDERED: ACETAMINOPHEN 325 MG TABLET PO PRN (10:30)
[2021-01-29] MEDS ORDERED: IBUPROFEN 400 MG TABLET PO PRN (10:30)
[2021-01-29] MEDS ORDERED: DOCUSATE SODIUM 100 MG CAPSULE PO PRN (10:30)
[2021-01-29] MEDS ORDERED: CloNIDine HCL 0.1 MG TABLET PO PRN (10:30)
[2021-01-29] MEDS ORDERED: MAG HYDROX/AL HYDROX/SIMETH ES 30 ML SUSPENSION UDCUP PO PRN (10:30)
[2021-01-29] MEDS ORDERED: GuaiFENesin/D-METHORPHAN [SUGAR-FREE] 200-20MG/10 ML SYRUP UDCUP PO PRN (10:30)
[2021-01-29] MEDS ORDERED: ONDANSETRON HCL 4 MG TABLET PO PRN (10:30)
[2021-01-29] MEDS ORDERED: PETROLATUM,WHITE 28 GM JELLY TP PRN (10:30)
[2021-01-29] MEDS ORDERED: LOPERAMIDE HCL 2 MG CAPSULE PO PRN (10:30)
[2021-01-29] MEDS ORDERED: NICOTINE 14 MG/24 HOUR PATCH TD PRN (10:30)
[2021-01-29] MEDS ORDERED: -PHARMACY VACCINE NOTE- MISC ONE (13:45)
[2021-01-29] MEDS: LevETIRAcetam 500 MG TABLET PO SCH (16:18)
[2021-01-29 16:20] VITALS: BP 124/61
[2021-01-30 00:29] VITALS: BP 103/61
[2021-01-30] MEDS: LevETIRAcetam 500 MG TABLET PO SCH ×2 (08:37→16:13)
[2021-01-30 08:57] VITALS: BP 107/62
[2021-01-30] MEDS: DIVALPROEX SODIUM 500 MG DR TABLET PO SCH (16:13)
[2021-01-30] MEDS: RisperiDONE 2 MG TABLET PO SCH (16:13)
[2021-01-31 06:12] VITALS: BP 128/73
[2021-01-31 08:21] VITALS: BP 109/64
[2021-01-31] MEDS: LevETIRAcetam 500 MG TABLET PO SCH ×2 (08:32→16:21)
[2021-01-31] MEDS: RisperiDONE 2 MG TABLET PO SCH ×2 (08:32→16:21)
[2021-01-31] MEDS: DIVALPROEX SODIUM 500 MG DR TABLET PO SCH ×2 (08:32→16:21)
[2021-01-31 16:06] VITALS: BP 116/76
[2021-01-31 16:45] VITALS: BP 112/78
[2021-01-31] MEDS: BENZTROPINE MESYLATE 1 MG TABLET PO SCH (17:00)
[2021-01-31] MEDS ORDERED: DiphenhydrAMINE HCL 50 MG/ML VIAL IM ONE (17:00)
[2021-02-01 06:09] VITALS: BP 103/56
[2021-02-01 08:32] VITALS: BP 111/65
[2021-02-01] MEDS: BENZTROPINE MESYLATE 1 MG TABLET PO SCH (09:24)
[2021-02-01] MEDS: DIVALPROEX SODIUM 500 MG DR TABLET PO SCH ×2 (09:24→16:07)
[2021-02-01] MEDS: LevETIRAcetam 500 MG TABLET PO SCH ×2 (09:24→16:06)
[2021-02-01] MEDS: RisperiDONE 2 MG TABLET PO SCH (09:24)
[2021-02-01] MEDS ORDERED: ARIPiprazole 15 MG TABLET PO SCH (11:15)
[2021-02-01] MEDS ORDERED: BENZTROPINE MESYLATE 1 MG TABLET PO ONE (13:30)
[2021-02-01] MEDS ORDERED: ARIP15TA27 PO (14:41)
[2021-02-01] MEDS ORDERED: BENZ1TAB10 PO (14:42)
[2021-02-01] MEDS ORDERED: LEVE250T55 PO (14:43)
[2021-02-01 16:14] VITALS: BP 118/61
[2021-02-01] MEDS ORDERED: BENZTROPINE MESYLATE 1 MG TABLET PO SCH (17:00)
== END 2021-02-01 16:45 | disposition home or self-care (01) | DRG 750 ==
LOC: EMS 22:43 → B2S 01-29 08:17
PROVIDERS: ADMIT Psychiatry & Neurology Psychiatry; ATTEND Psychiatry & Neurology Psychiatry
DX: F25.0 Schizoaffective disorder, bipolar type (principal); R45.851 Suicidal ideations; G40.909 Epilepsy, unspecified, not intractable, without status epilepticus; F17.210 Nicotine dependence, cigarettes, uncomplicated; Z20.822 Contact with and (suspected) exposure to COVID-19; E87.6 Hypokalemia; J45.909 Unspecified asthma, uncomplicated; K21.9 Gastro-esophageal reflux disease without esophagitis; F15.10 Other stimulant abuse, uncomplicated; F12.90 Cannabis use, unspecified, uncomplicated; F41.9 Anxiety disorder, unspecified
CPT/HCPCS: 80053; 80164; 81001; 85025; 87086; 99285; G0480; G0481; J1200

== ENCOUNTER 2022-08-13 09:52 | Inpatient (IN) | payer MEDICAID ==
[~2022-08-13] VITALS: Ht 144.8 cm; Wt 58.0 kg
[~2022-08-13 09:52] MED LIST changes: +ARIP15TA27 PO; +BENZ1TAB96 PO; +LEVE250T4 PO; -RISP2TAB45 PO; -SEIZURE PO
[2022-08-13 11:41] LABS: COVID AG,FIA SOURCE NASOPHARYNGEAL
[2022-08-13] MEDS ORDERED: HALOPERIDOL 5 MG TABLET PO PRN (12:15)
[2022-08-13] MEDS ORDERED: LORazepam 2 MG TABLET PO PRN (12:15)
[2022-08-13] MEDS ORDERED: ZOLPIDEM TARTRATE 10 MG TABLET PO PRN (12:15)
[2022-08-13 12:39] LABS: BASOPHILS % (AUTO) 0.6 % (0.0-2.0); EOSINOPHILS % (AUTO) 1.1 % (1.0-6.0); HEMATOCRIT 39.3 % (36-46); LYMPHOCYTES # (AUTO) 2.1 K/uL (1.0-4.8); LYMPHOCYTES % (AUTO) 29.2 % (22.0-44.0); MEAN CORPUSCULAR HEMOGLOBIN 27.1 pg (26.0-34.0); MEAN CORPUSCULAR VOLUME 82 fL (80-100); MONOCYTES # (AUTO) 0.6 K/uL (0.1-1.0); MONOCYTES % (AUTO) 8.9 % (2.0-9.0); NEUTROPHILS # (AUTO) 4.4 K/uL (1.8-7.7); NEUTROPHILS % (AUTO) 60.2 % (40.0-70.0); PLATELET COUNT (AUTO) 266 K/uL (150-450); RED BLOOD CELL COUNT(AUTO) 4.78 MIL/uL (4.00-5.20); RED CELL DISTRIBUTION WIDTH 13.9 % (11.5-14.5)
[2022-08-13 12:48] LABS: ANION GAP 9 mmol/L (8-16); CALCIUM, TOTAL 8.4 mg/dL (8.8-10.5); CARBON DIOXIDE 25 mmol/L (22-29); CHLORIDE 108 mmol/L (98-107); CREATININE 0.99 mg/dL (0.60-1.30); GLOMERULAR FILTR. RATE CALC > 60 mL/min (>60); GLUCOSE,RANDOM 101 mg/dL (70-110); POTASSIUM 3.7 mmol/L (3.5-5.1); SODIUM SERUM 142 mmol/L (136-145); UREA NITROGEN, BLOOD 19 mg/dL (7-18)
[2022-08-13 13:02] LABS: ALANINE AMINOTRANSFERASE 24 U/L (12-78); ALBUMIN 3.4 g/dL (3.4-5.0); ALKALINE PHOSPHATASE 106 U/L (46-116); ASPARTATE AMINOTRANSFERASE 17 U/L (15-37); BILIRUBIN,TOTAL 0.2 mg/dL (0.1-1.0); HCG,QUANTITATIVE < 1 mIU/mL (0-6); TOTAL PROTEIN, SERUM 7.2 g/dL (6.4-8.2)
[2022-08-13 13:22] LABS: VALPROIC ACID < 3 mcg/mL (50-100)
[2022-08-13 21:34] LABS: APPEARANCE,URINE CLEAR (CLEAR); BILIRUBIN,URINE NEGATIVE (NEGATIVE); GLUCOSE, URINE (UA) NEGATIVE (NEGATIVE); KETONES,URINE NEGATIVE (NEGATIVE); LEUKOCYTE ESTERASE ,URINE NEGATIVE (NEGATIVE); NITRATE,URINE NEGATIVE (NEGATIVE); OCCULT BLOOD,URINE SMALL (NEGATIVE); PROTEIN,URINE NEGATIVE (NEGATIVE); SPECIFIC GRAVITIY, URINE 1.019 (1.003-1.030); UROBILINOGEN,URINE <=1.0 mg/dL (<=1.0)
[2022-08-13 21:42] LABS: AMPHET/METH SCREEN,URINE POSITIVE (NEGATIVE); BARBITURATE SCREEN, URINE NEGATIVE (NEGATIVE); BENZODIAZEPINES SCREEN,URINE NEGATIVE (NEGATIVE); CANNABINOID SCREEN,URINE NEGATIVE (NEGATIVE); COCAINE SCREEN,URINE NEGATIVE (NEGATIVE); METHADONE SCREEN, URINE NEGATIVE (NEGATIVE); OPIATE SCREEN,URINE NEGATIVE (NEGATIVE); PHENCYCLIDINE SCREEN,URINE NEGATIVE (NEGATIVE)
[2022-08-13 21:51] LABS: BACTERIA,URINE None Seen /HPF (None Seen); SQUAMOUS EPITHELIAL CELL,UR None Seen /LPF (None Seen); WBC,URINE None Seen /HPF (0-5)
[2022-08-14 18:29] VITALS: BP 119/69
[2022-08-14 20:49] VITALS: BP 100/65
[2022-08-15 08:30] VITALS: BP 115/72
[2022-08-15] MEDS ORDERED: LevETIRAcetam 500 MG TABLET PO SCH (09:00)
[2022-08-15] MEDS ORDERED: LEVE500T20 PO (11:46)
[2022-08-15] MEDS: DIVALPROEX SODIUM 500 MG DR TABLET PO SCH ×2 (11:55→20:05)
[2022-08-15] MEDS: ARIPiprazole 15 MG TABLET PO SCH (11:56)
[2022-08-15] MEDS ORDERED: DOCUSATE SODIUM 100 MG CAPSULE PO PRN (15:30)
[2022-08-15] MEDS ORDERED: GuaiFENesin/D-METHORPHAN [SUGAR-FREE] 200-20MG/10 ML SYRUP UDCUP PO PRN (15:30)
[2022-08-15] MEDS ORDERED: ACETAMINOPHEN 325 MG TABLET PO PRN (15:30)
[2022-08-15] MEDS ORDERED: LOPERAMIDE HCL 2 MG CAPSULE PO PRN (15:30)
[2022-08-15] MEDS ORDERED: IBUPROFEN 400 MG TABLET PO PRN (15:30)
[2022-08-15] MEDS ORDERED: ALBUTEROL SULFATE HFA 90 MCG/PUFF 8 GM INHALER IH PRN (15:30)
[2022-08-15] MEDS ORDERED: ONDANSETRON HCL 4 MG TABLET PO PRN (15:30)
[2022-08-15] MEDS ORDERED: MAGNESIUM HYDROXIDE SUSPENSION 30 ML UDCUP PO PRN (15:30)
[2022-08-15] MEDS ORDERED: CloNIDine HCL 0.1 MG TABLET PO PRN (15:30)
[2022-08-15] MEDS ORDERED: NICOTINE 14 MG/24 HOUR PATCH TD PRN (15:30)
[2022-08-15] MEDS ORDERED: MAG HYDROX/AL HYDROX/SIMETH ES 30 ML SUSPENSION UDCUP PO PRN (15:30)
[2022-08-15] MEDS ORDERED: PETROLATUM,WHITE 28 GM JELLY TP PRN (15:30)
[2022-08-15] MEDS: LevETIRAcetam 500 MG TABLET PO SCH (17:45)
[2022-08-16] MEDS: LevETIRAcetam 500 MG TABLET PO SCH ×2 (08:44→16:45)
[2022-08-16] MEDS: DIVALPROEX SODIUM 500 MG DR TABLET PO SCH ×2 (08:44→21:00)
[2022-08-16] MEDS: ARIPiprazole 15 MG TABLET PO SCH (08:45)
[2022-08-16 10:05] VITALS: BP 120/71
[2022-08-16 16:00] VITALS: BP 116/74
[2022-08-16 20:51] VITALS: BP 122/70
[2022-08-17 08:37] VITALS: BP 110/69
[2022-08-17] MEDS: LevETIRAcetam 500 MG TABLET PO SCH (08:55)
[2022-08-17] MEDS: ARIPiprazole 15 MG TABLET PO SCH (08:55)
[2022-08-17] MEDS: DIVALPROEX SODIUM 500 MG DR TABLET PO SCH (08:55)
[2022-08-17] MEDS ORDERED: DIVA-112 PO (12:06)
[2022-08-18] MEDS ORDERED: ARIP15TA27 PO (05:02)
[2022-08-18] MEDS ORDERED: DIVA-112 PO (05:02)
[2022-08-18] MEDS ORDERED: LEVE500T8 PO (05:02)
== END 2022-08-17 14:50 | disposition home or self-care (01) | DRG 750 ==
LOC: EMS 09:53 → 3EI 08-14 17:39
PROVIDERS: ADMIT Psychiatry & Neurology Psychiatry; ATTEND Psychiatry & Neurology Psychiatry
DX: F25.1 Schizoaffective disorder, depressive type (principal); G40.909 Epilepsy, unspecified, not intractable, without status epilepticus; R45.851 Suicidal ideations; F10.10 Alcohol abuse, uncomplicated; F12.10 Cannabis abuse, uncomplicated; F15.10 Other stimulant abuse, uncomplicated; F17.200 Nicotine dependence, unspecified, uncomplicated; Z20.822 Contact with and (suspected) exposure to COVID-19; M54.30 Sciatica, unspecified side; F31.9 Bipolar disorder, unspecified; J45.909 Unspecified asthma, uncomplicated; K21.9 Gastro-esophageal reflux disease without esophagitis; Z79.899 Other long term (current) drug therapy; Z88.2 Allergy status to sulfonamides; Z91.51 Personal history of suicidal behavior; Z88.5 Allergy status to narcotic agent; Z91.040 Latex allergy status
CPT/HCPCS: 80053; 80164; 80307; 81001; 84702; 85025; 99285; G0480